=== PATIENT | male | born 1935 | race African-American/Black ===

== ENCOUNTER 2022-10-21 17:39 | Emergency (ER) | payer OTHER ==
[~2022-10-21] VITALS: Ht 182.9 cm; Wt 105.0 kg
[2022-10-21] MEDS ORDERED: FUROSEMIDE 40 MG/4 ML VIAL IV ONE (18:30)
[2022-10-21 18:41] LABS: Basophils # (auto) 0.1 10 ^3/uL (0-0.2); Basophils % (auto) 1.2 % (0.0-2.0); Eosinophils # (auto) 0.2 10 ^3/uL (0-0.8); Eosinophils % (auto) 2.7 % (0.0-7.0); Hematocrit 39.3 % (41.0-53.0); Hemoglobin 12.6 g/dL (13.5-17.5); Lymphocytes # (auto) 1.5 10 ^3/uL (0.4-5.4); Lymphocytes % (auto) 24.8 % (10.0-50.0); Mean Corpuscular Hemoglobin 28.4 pg (28.0-32.0); Mean Corpuscular Volume 88.8 fL (80.0-100.0); Monocytes % (auto) 16.2 % (0.0-12.0); Neutrophils # (auto) 3.3 10 ^3/uL (1.6-8.6); Neutrophils % (auto) 55.1 % (37.0-80.0); Nucleated Red Blood Cells % 0.1 %; Red Blood Cells 4.42 10^6/uL (4.5-5.90); Red Cell Distribution Width 14.4 % (11.8-14.3); White Blood Cell 5.9 10^3/uL (4.4-10.8)
[2022-10-21 19:02] LABS: Albumin 2.4 g/dL (3.4-5.0); BUN/Creatinine Ratio 25.8; Potassium 5.4 mmol/L (3.5-5.1)
[2022-10-21 19:10] LABS: Bilirubin, Total 0.4 mg/dL (0.2-1.0); Total Protein 7.3 g/dL (6.4-8.2)
[2022-10-21] MEDS ORDERED: NITROGLYCERIN 0.4 MG SL TAB SL ONE (19:30)
[2022-10-21] MEDS ORDERED: hydrALAZINE HCL 25 MG TAB PO ONE (22:45)
[2022-10-21 23:29] VITALS: BP 182/69
== END 2022-10-21 23:45 | disposition short-term general hospital (02) ==
LOC: ER 17:39 → EDUNIT# 17:39 → EDBD 17:39 → ER 23:45
DX: I16.9 Hypertensive crisis, unspecified (principal); I13.0 Hypertensive heart and chronic kidney disease with heart failure and stage 1 through stage 4 chronic kidney disease, or unspecified chronic kidney disease; E11.22 Type 2 diabetes mellitus with diabetic chronic kidney disease; N18.9 Chronic kidney disease, unspecified; I50.9 Heart failure, unspecified; E78.5 Hyperlipidemia, unspecified
CPT/HCPCS: 36415; 71045; 80053; 82962; 83735; 83880; 84484; 85025; 93005; 96374; 99285; J1940

== ENCOUNTER 2022-11-03 11:55 | Inpatient (IN) | payer OTHER ==
[~2022-11-03] VITALS: Ht 175.3 cm; Wt 98.2 kg
[2022-11-03] MEDS ORDERED: GLUCAGON EMERG KIT 1mg/1ml IV ONE ×2 (12:00→13:45)
[2022-11-03] MEDS ORDERED: ONDANSETRON HCL 4 MG/2 ML VIAL IV ONE (12:15)
[2022-11-03 12:56] LABS: Basophils # (auto) 0 10 ^3/uL (0-0.2); Basophils % (auto) 0.8 % (0.0-2.0); Eosinophils # (auto) 0.2 10 ^3/uL (0-0.8); Eosinophils % (auto) 3.8 % (0.0-7.0); Hematocrit 31.3 % (41.0-53.0); Hemoglobin 10.1 g/dL (13.5-17.5); Lymphocytes # (auto) 1.1 10 ^3/uL (0.4-5.4); Lymphocytes % (auto) 20.2 % (10.0-50.0); Mean Corpuscular Hemoglobin 28.5 pg (28.0-32.0); Mean Corpuscular Hgb Conc. 32.2 g/dL (32.0-36.0); Mean Corpuscular Volume 88.2 fL (80.0-100.0); Monocytes # (auto) 0.9 10 ^3/uL (0-1.3); Monocytes % (auto) 16.8 % (0.0-12.0); Neutrophils # (auto) 3.2 10 ^3/uL (1.6-8.6); Neutrophils % (auto) 58.4 % (37.0-80.0); Nucleated Red Blood Cells % 0.1 %; Red Blood Cells 3.55 10^6/uL (4.5-5.90); Red Cell Distribution Width 14.7 % (11.8-14.3); White Blood Cell 5.5 10^3/uL (4.4-10.8)
[2022-11-03 13:38] LABS: Albumin 2.2 g/dL (3.4-5.0); Calcium 7.5 mg/dL (8.5-10.1); Magnesium 2.6 mg/dL (1.6-2.6)
[2022-11-03 13:43] LABS: BUN/Creatinine Ratio 31.7; Bilirubin, Total 0.4 mg/dL (0.2-1.0)
[2022-11-03] MEDS ORDERED: cefTRIAXone 1GM/50ML D5W 50 ML IV ONE (13:45)
[2022-11-03 13:54] LABS: Potassium 6.2 mmol/L (3.5-5.1)
[2022-11-03] MEDS ORDERED: ALBUTEROL SULF 2.5 MG/0.5ML(0.5%) NEB SOLN NEB ONE ×2 (14:00→21:45)
[2022-11-03] MEDS ORDERED: InsuLIN REG 1unit/0.01ml Soln (100units/ml) IV ONE ×2 (14:00→21:45)
[2022-11-03] MEDS ORDERED: FUROSEMIDE 40 MG/4 ML VIAL IV ONE (14:00)
[2022-11-03] MEDS ORDERED: CALCIUM GLUC 1,000mg/50ml-NS 50 ML IV ONE (14:00)
[2022-11-03] MEDS ORDERED: SODIUM ZIRCONIUM CYCL 10 GM PAK PO ONE (14:00)
[2022-11-03] MEDS ORDERED: DEXTROSE 10% 250 ML Bag IV ONE (14:15)
[2022-11-03] MEDS ORDERED: HYDR50TA15 PO (15:15)
[2022-11-03] MEDS ORDERED: PRE5T PO (15:15)
[2022-11-03] MEDS ORDERED: GAB100C PO (15:15)
[2022-11-03] MEDS ORDERED: PANTOPRAZOLE 40 MG/10 ML VIAL INJ IV ONE (15:15)
[2022-11-03] MEDS ORDERED: DOXY-111 PO (15:15)
[2022-11-03] MEDS ORDERED: methylPREDNISolone SOD SUCC 125 MG/2 ML VL IV ONE (15:15)
[2022-11-03] MEDS ORDERED: ATEN50TA PO (15:15)
[2022-11-03] MEDS ORDERED: DEXTROSE (50%) 50ML SYRG IV PRN (15:15)
[2022-11-03] MEDS ORDERED: AZITHROMYCIN 500MG/ 250ML 250 ML IV ONE (15:15)
[2022-11-03] MEDS ORDERED: NITROGLYCERIN 0.4 MG SL TAB SL PRN (15:15)
[2022-11-03] MEDS ORDERED: ALBUTEROL SULF 2.5 MG/0.5ML(0.5%) NEB SOLN NEB PRN (15:15)
[2022-11-03] MEDS ORDERED: FURO40TA4 PO (15:15)
[2022-11-03] MEDS ORDERED: LISI20TA28 PO (15:15)
[2022-11-03] MEDS ORDERED: AMLO-489 PO (15:15)
[2022-11-03] MEDS ORDERED: MORPHINE SULFATE INJ 2 MG/ml SYRG IV PRN (15:15)
[2022-11-03] MEDS ORDERED: BENZ100C97 PO (15:15)
[2022-11-03 15:42] LABS: Cholesterol 118 mg/dL (< 200)
[2022-11-03 15:45] LABS: HDL Cholesterol 45 mg/dL (40-59); LDL Cholesterol 74 mg/dL (< 100); Triglycerides 88 mg/dL (< 150)
[2022-11-03 16:02] VITALS: BP 151/56
[2022-11-03 16:36] LABS: INR 1.11 (0.9-1.15)
[2022-11-03] MEDS: InsuLIN REG 1unit/0.01ml Soln (100units/ml) SC SCH ×2 (17:00→22:59)
[2022-11-03] MEDS: ACCU-CHEK COMFORT CURVE STRIP VI SCH ×2 (17:07→22:49)
[2022-11-03] MEDS ORDERED: IPRATROPIUM BROM 0.5 MG/2.5ML INH SOL NEB SCH (18:00)
[2022-11-03 18:26] LABS: Albumin 2.3 g/dL (3.4-5.0); BUN/Creatinine Ratio 32.1; Calcium 8.2 mg/dL (8.5-10.1)
[2022-11-03 18:28] LABS: Bilirubin, Total 0.3 mg/dL (0.2-1.0); Total Protein 6.9 g/dL (6.4-8.2)
[2022-11-03] MEDS ORDERED: ALBUTEROL SULF 2.5 MG/0.5ML(0.5%) NEB SOLN ONE (18:28)
[2022-11-03] MEDS: IPRATROPIUM BROM 0.5 MG/2.5ML INH SOL NEB SCH ×2 (18:31→22:03)
[2022-11-03 18:39] LABS: Potassium 6.3 mmol/L (3.5-5.1)
[2022-11-03] MEDS ORDERED: SODIUM BICARBONATE 8.4% INJ 50ML SYRINGE IV ONE (21:45)
[2022-11-03] MEDS ORDERED: HEPARIN DRIP/D5W 100UNITS/ML 250 ML IV SCH (21:45)
[2022-11-03] MEDS ORDERED: HEPARIN SODIUM (PORCINE) 5000 UNITS/ML 1ML VIAL IV ONE (21:45)
[2022-11-03] MEDS ORDERED: DEXTROSE (50%) 50ML SYRG IV ONE (21:45)
[2022-11-03] MEDS ORDERED: HEPARIN SODIUM (PORCINE) 5000 UNITS/ML 1ML VIAL SC SCH (22:00)
[2022-11-03] MEDS: ALBUTEROL SULF 2.5 MG/0.5ML(0.5%) NEB SOLN NEB SCH (22:03)
[2022-11-03] MEDS: methylPREDNISolone SOD SUCC 125 MG/2 ML VL IV SCH (22:49)
[2022-11-03 22:57] LABS: Basophils # (auto) 0 10 ^3/uL (0-0.2); Basophils % (auto) 0.2 % (0.0-2.0); Eosinophils # (auto) 0 10 ^3/uL (0-0.8); Eosinophils % (auto) 0.1 % (0.0-7.0); Hematocrit 31.3 % (41.0-53.0); Hemoglobin 10.2 g/dL (13.5-17.5); Lymphocytes # (auto) 0.6 10 ^3/uL (0.4-5.4); Lymphocytes % (auto) 10.3 % (10.0-50.0); Mean Corpuscular Hemoglobin 28.6 pg (28.0-32.0); Mean Corpuscular Hgb Conc. 32.6 g/dL (32.0-36.0); Mean Corpuscular Volume 87.8 fL (80.0-100.0); Monocytes # (auto) 0.1 10 ^3/uL (0-1.3); Monocytes % (auto) 2.2 % (0.0-12.0); Neutrophils # (auto) 5.2 10 ^3/uL (1.6-8.6); Neutrophils % (auto) 87.2 % (37.0-80.0); Nucleated Red Blood Cells % 0.1 %; Red Blood Cells 3.57 10^6/uL (4.5-5.90); Red Cell Distribution Width 14.3 % (11.8-14.3)
[2022-11-03 23:12] LABS: INR 1.15 (0.9-1.15)
[2022-11-03] MEDS ORDERED: FUROSEMIDE 20 MG/2 ML VIAL IV ONE (23:45)
[2022-11-04] MEDS: ACETAMINOPHEN 325 MG TAB PO PRN (00:30)
[2022-11-04 01:04] LABS: BUN/Creatinine Ratio 29.5; Calcium 7.7 mg/dL (8.5-10.1)
[2022-11-04 01:24] LABS: Potassium 6.6 mmol/L (3.5-5.1)
[2022-11-04] MEDS: IPRATROPIUM BROM 0.5 MG/2.5ML INH SOL NEB SCH ×6 (02:00→21:58)
[2022-11-04] MEDS: ALBUTEROL SULF 2.5 MG/0.5ML(0.5%) NEB SOLN NEB SCH ×6 (02:00→21:58)
[2022-11-04] MEDS ORDERED: ALBUTEROL SULF 2.5 MG/0.5ML(0.5%) NEB SOLN NEB ONE ×2 (02:15→14:30)
[2022-11-04] MEDS ORDERED: DEXTROSE (50%) 50ML SYRG IV ONE ×2 (02:15→13:15)
[2022-11-04] MEDS ORDERED: InsuLIN REG 1unit/0.01ml Soln (100units/ml) IV ONE ×2 (02:15→13:15)
[2022-11-04] MEDS ORDERED: CALCIUM GLUC 1,000mg/50ml-NS 50 ML IV ONE ×2 (02:15→13:15)
[2022-11-04] MEDS ORDERED: SODIUM ZIRCONIUM CYCL 10 GM PAK PO ONE (02:15)
[2022-11-04] MEDS ORDERED: SODIUM BICARBONATE 8.4 % INJ 50ML VIAL IV ONE (02:15)
[2022-11-04] MEDS ORDERED: FUROSEMIDE 40 MG/4 ML VIAL IV ONE (02:30)
[2022-11-04] MEDS ORDERED: DEXTROSE 10% 250 ML IV ONE ×4 (02:45→14:45)
[2022-11-04 05:05] LABS: Basophils # (auto) 0 10 ^3/uL (0-0.2); Basophils % (auto) 0.1 % (0.0-2.0); Eosinophils # (auto) 0 10 ^3/uL (0-0.8); Eosinophils % (auto) 0.1 % (0.0-7.0); Hematocrit 30.2 % (41.0-53.0); Hemoglobin 9.7 g/dL (13.5-17.5); Lymphocytes # (auto) 0.6 10 ^3/uL (0.4-5.4); Lymphocytes % (auto) 9.4 % (10.0-50.0); Mean Corpuscular Hemoglobin 28.4 pg (28.0-32.0); Mean Corpuscular Hgb Conc. 32.1 g/dL (32.0-36.0); Mean Corpuscular Volume 88.3 fL (80.0-100.0); Monocytes # (auto) 0.1 10 ^3/uL (0-1.3); Monocytes % (auto) 1.9 % (0.0-12.0); Neutrophils # (auto) 5.5 10 ^3/uL (1.6-8.6); Neutrophils % (auto) 88.5 % (37.0-80.0); Nucleated Red Blood Cells % 0.1 %; Red Blood Cells 3.42 10^6/uL (4.5-5.90); Red Cell Distribution Width 14.7 % (11.8-14.3); White Blood Cell 6.2 10^3/uL (4.4-10.8)
[2022-11-04 05:13] LABS: Albumin 2.2 g/dL (3.4-5.0); Calcium 7.9 mg/dL (8.5-10.1)
[2022-11-04 05:17] LABS: BUN/Creatinine Ratio 24.8; Bilirubin, Total 0.4 mg/dL (0.2-1.0); Total Protein 6.8 g/dL (6.4-8.2)
[2022-11-04 05:22] LABS: Potassium 6.2 mmol/L (3.5-5.1)
[2022-11-04 05:35] LABS: INR 1.25 (0.9-1.15)
[2022-11-04 05:40] LABS: Partial Thromboplastin Time > 139.0 sec (24.6-33.4)
[2022-11-04] MEDS: InsuLIN REG 1unit/0.01ml Soln (100units/ml) SC SCH ×4 (07:04→22:18)
[2022-11-04] MEDS: ACCU-CHEK COMFORT CURVE STRIP VI SCH ×4 (07:04→22:11)
[2022-11-04] MEDS ORDERED: cefTRIAXone 1GM/50ML D5W 50 ML IV SCH (09:00)
[2022-11-04] MEDS ORDERED: HEPARIN DRIP/D5W 100UNITS/ML 250 ML IV SCH (09:00)
[2022-11-04] MEDS ORDERED: FUROSEMIDE 20 MG/2 ML VIAL IV SCH (10:00)
[2022-11-04] MEDS ORDERED: amLODIPine BESYLATE 5 MG TAB PO SCH (10:00)
[2022-11-04] MEDS ORDERED: AZITHROMYCIN 500MG/ 250ML 250 ML IV SCH (10:00)
[2022-11-04] MEDS: methylPREDNISolone SOD SUCC 125 MG/2 ML VL IV SCH (10:32)
[2022-11-04] MEDS: PANTOPRAZOLE 40 MG/10 ML VIAL INJ IV SCH (10:32)
[2022-11-04 12:45] LABS: BUN/Creatinine Ratio 22.4; Calcium 7.9 mg/dL (8.5-10.1)
[2022-11-04] MEDS ORDERED: FUROSEMIDE INJECTION 100 MG in SODIUM CHL 0.9% 100 ML IV SCH (12:45)
[2022-11-04] MEDS: SODIUM ZIRCONIUM CYCL 10 GM PAK PO SCH ×2 (12:45→20:44)
[2022-11-04 12:55] LABS: Potassium 7.2 mmol/L (3.5-5.1)
[2022-11-04] MEDS ORDERED: SODIUM BICARBONATE 8.4% INJ 50ML SYRINGE IV ONE (13:15)
[2022-11-04] MEDS ORDERED: ISOPROTERENOL HCL INJECTION 1 MG in D5W 5% 250 ML IV SCH (13:30)
[2022-11-04] MEDS ORDERED: SODIUM ZIRCONIUM CYCL 10 GM PAK PO SCH (14:00)
[2022-11-04] MEDS ORDERED: LORazepam 2MG/ML-1ML VIAL ONE (16:12)
[2022-11-04] MEDS ORDERED: LORazepam 2MG/ML-1ML VIAL IV ONE (16:30)
[2022-11-04 16:38] LABS: INR 1.29 (0.9-1.15); Partial Thromboplastin Time 35.2 sec (24.6-33.4)
[2022-11-04] MEDS ORDERED: LORazepam 2MG/ML-1ML VIAL IV PRN (16:45)
[2022-11-04] MEDS ORDERED: SODIUM CHL 0.9% 1000 ML BAG XX ONE (17:30)
[2022-11-04 18:40] LABS: Calcium 8.1 mg/dL (8.5-10.1); Potassium 5.5 mmol/L (3.5-5.1)
[2022-11-04 18:42] LABS: BUN/Creatinine Ratio 22.6
[2022-11-04] MEDS ORDERED: EPOETIN ALFA-EPBX 10,000 UNIT/1ML VIAL SC ONE (21:00)
[2022-11-04] MEDS ORDERED: MELATONIN 5 MG TAB ONE (22:58)
[2022-11-04 23:46] LABS: Folate (Folic Acid) 15.12 ng/mL (5.38-24)
[2022-11-05] VITALS (66 sets, daily range): BP systolic 97–157; BP diastolic 33–54
[2022-11-05 00:49] LABS: Albumin 2.5 g/dL (3.4-5.0); BUN/Creatinine Ratio 21.9; Calcium 8.2 mg/dL (8.5-10.1)
[2022-11-05 00:54] LABS: Urine Bacteria FEW /hpf (None Seen); Urine Blood 3+ /uL (Negative); Urine Hyaline Cast MANY /lpf (0 - 2); Urine Mucus FEW (None Seen); Urine Specific Gravity 1.012 (1.001-1.035); Urine WBC 82 /hpf (0 - 3); Urine WBC Clumps PRESENT /hpf (None Seen)
[2022-11-05 00:56] LABS: Bilirubin, Total 0.4 mg/dL (0.2-1.0); Total Protein 6.6 g/dL (6.4-8.2)
[2022-11-05 00:59] LABS: Potassium 5.8 mmol/L (3.5-5.1)
[2022-11-05] MEDS ORDERED: SODIUM ZIRCONIUM CYCL 10 GM PAK PO ONE (01:15)
[2022-11-05 01:19] LABS: Alcohol, Urine < 3.0 mg/dL (0-10); Amphetamine Screen, Urine NEGATIVE (NEGATIVE); Barbiturate Scree,Urine NEGATIVE (NEGATIVE); Benzodiazephine Screen, Urine NEGATIVE (NEGATIVE); Cannabinoid Screen, Urine NEGATIVE (NEGATIVE); Cocaine Screen, Urine NEGATIVE (NEGATIVE); Opiate Scree,Urine NEGATIVE (NEGATIVE); Phencyclidine Screen, Urine NEGATIVE (NEGATIVE); Protein, Urine 142.3 mg/dL (0.0-11.9)
[2022-11-05] MEDS: ALBUTEROL SULF 2.5 MG/0.5ML(0.5%) NEB SOLN NEB SCH ×6 (01:41→22:20)
[2022-11-05] MEDS: IPRATROPIUM BROM 0.5 MG/2.5ML INH SOL NEB SCH ×6 (01:41→22:20)
[2022-11-05] MEDS ORDERED: HALOPERIDOL LACTATE 5 MG/ML INJ VIAL IM ONE (01:45)
[2022-11-05] MEDS ORDERED: ETOMIDATE (2MG/ML) 20ML VIAL IV ONE ×2 (03:59→04:15)
[2022-11-05] MEDS ORDERED: ROCURONIUM 10MG/ML 10ML VIAL IV ONE ×2 (03:59→04:15)
[2022-11-05] MEDS ORDERED: MIDAZOLAM HCL 5 MG/ML-1ML VIAL ONE (04:01)
[2022-11-05] MEDS ORDERED: MIDAZOLAM DRIP 50 mg/50mL 50 ML IV ONE (04:01)
[2022-11-05] MEDS ORDERED: MAGNESIUM SULFATE 1GM/100ML 200 ML IV ONE (04:07)
[2022-11-05] MEDS ORDERED: SODIUM BICARBONATE 8.4 % INJ 50ML VIAL IV ONE ×2 (04:15→06:30)
[2022-11-05] MEDS ORDERED: ATROPINE SULF 1 MG/10ml SYR IV ONE (04:15)
[2022-11-05] MEDS ORDERED: SODIUM CHLORIDE 0.9% 1,000 ML IV ONE (04:15)
[2022-11-05] MEDS: MIDAZOLAM DRIP 50 mg/50mL 50 ML IV SCH ×3 (04:15→20:36)
[2022-11-05] MEDS ORDERED: MIDAZOLAM HCL 5 MG/ML-1ML VIAL IV ONE (04:15)
[2022-11-05] MEDS: SODIUM ZIRCONIUM CYCL 10 GM PAK PO SCH ×4 (04:45→22:37)
[2022-11-05] MEDS: MAGNESIUM SULFATE 1GM/100ML 100 ML IV SCH ×2 (05:10→05:20)
[2022-11-05 05:20] LABS: BUN/Creatinine Ratio 23.8; Calcium 8.8 mg/dL (8.5-10.1); Phosphorus 5.9 mg/dL (2.5-4.90)
[2022-11-05 05:52] LABS: Calcium 8.9 mg/dL (8.5-10.1)
[2022-11-05 05:56] LABS: Albumin 2.2 g/dL (3.4-5.0)
[2022-11-05 05:59] LABS: Bilirubin, Total 0.3 mg/dL (0.2-1.0)
[2022-11-05 06:03] LABS: Potassium 5.6 mmol/L (3.5-5.1)
[2022-11-05] MEDS: PROPOFOL 100 ML IV SCH ×2 (06:10→20:39)
[2022-11-05 06:19] LABS: Uric Acid 8.8 mg/dL (3.5-7.2)
[2022-11-05 06:27] LABS: Potassium 5.5 mmol/L (3.5-5.1)
[2022-11-05] MEDS: ACCU-CHEK COMFORT CURVE STRIP VI SCH ×4 (07:09→22:00)
[2022-11-05] MEDS: InsuLIN REG 1unit/0.01ml Soln (100units/ml) SC SCH ×4 (07:13→22:29)
[2022-11-05 07:18] LABS: Basophils # (auto) 0 10 ^3/uL (0-0.2); Eosinophils # (auto) 0 10 ^3/uL (0-0.8); Hematocrit 28.3 % (41.0-53.0); Hemoglobin 9.5 g/dL (13.5-17.5); Lymphocytes # (auto) 0.5 10 ^3/uL (0.4-5.4); Lymphocytes % (auto) 5.7 % (10.0-50.0); Mean Corpuscular Hgb Conc. 33.5 g/dL (32.0-36.0); Mean Corpuscular Volume 86.4 fL (80.0-100.0); Monocytes # (auto) 1.1 10 ^3/uL (0-1.3); Monocytes % (auto) 12.1 % (0.0-12.0); Neutrophils # (auto) 7.4 10 ^3/uL (1.6-8.6); Neutrophils % (auto) 82.2 % (37.0-80.0); Nucleated Red Blood Cells % 0.1 %; Red Blood Cells 3.27 10^6/uL (4.5-5.90); Red Cell Distribution Width 14.8 % (11.8-14.3)
[2022-11-05] MEDS ORDERED: NOREPINEPHRINE 8 MG/250ML KIT 250 ML IV ONE (09:57)
[2022-11-05] MEDS ORDERED: FUROSEMIDE 100 MG/10ML VIAL IV SCH (10:00)
[2022-11-05] MEDS ORDERED: DOPamine 1600MCG/ML D5W 250 ML IV ONE (10:05)
[2022-11-05] MEDS: PANTOPRAZOLE 40 MG/10 ML VIAL INJ IV SCH (12:08)
[2022-11-05] MEDS: FUROSEMIDE 100 MG/10ML VIAL IV SCH ×2 (12:09→22:37)
[2022-11-05] MEDS: ENOXAPARIN SOD 120 MG/0.8 ML SYRINGE SC SCH (14:24)
[2022-11-05] MEDS ORDERED: MELATONIN 5 MG TAB PO ONE (22:00)
[2022-11-06] VITALS (76 sets, daily range): BP systolic 96–148; BP diastolic 34–59
[2022-11-06] MEDS: ALBUTEROL SULF 2.5 MG/0.5ML(0.5%) NEB SOLN NEB SCH ×6 (02:13→22:18)
[2022-11-06] MEDS: IPRATROPIUM BROM 0.5 MG/2.5ML INH SOL NEB SCH ×6 (02:13→22:18)
[2022-11-06 05:52] LABS: Basophils # (auto) 0 10 ^3/uL (0-0.2); Eosinophils # (auto) 0 10 ^3/uL (0-0.8); Hematocrit 28.6 % (41.0-53.0); Hemoglobin 9.6 g/dL (13.5-17.5); Lymphocytes # (auto) 0.6 10 ^3/uL (0.4-5.4); Lymphocytes % (auto) 6.6 % (10.0-50.0); Mean Corpuscular Hemoglobin 29.1 pg (28.0-32.0); Mean Corpuscular Hgb Conc. 33.4 g/dL (32.0-36.0); Mean Corpuscular Volume 86.9 fL (80.0-100.0); Monocytes % (auto) 11.6 % (0.0-12.0); Neutrophils # (auto) 7.3 10 ^3/uL (1.6-8.6); Neutrophils % (auto) 81.8 % (37.0-80.0); Nucleated Red Blood Cells % 0.1 %; Red Blood Cells 3.29 10^6/uL (4.5-5.90); Red Cell Distribution Width 14.3 % (11.8-14.3); White Blood Cell 8.9 10^3/uL (4.4-10.8)
[2022-11-06 06:12] LABS: BUN/Creatinine Ratio 24.5; Calcium 8.2 mg/dL (8.5-10.1); Potassium 5.5 mmol/L (3.5-5.1)
[2022-11-06] MEDS: InsuLIN REG 1unit/0.01ml Soln (100units/ml) SC SCH ×4 (06:24→22:14)
[2022-11-06] MEDS: ACCU-CHEK COMFORT CURVE STRIP VI SCH ×4 (06:24→22:28)
[2022-11-06] MEDS ORDERED: SODIUM CHL 0.9% 1000 ML BAG XX ONE (07:00)
[2022-11-06] MEDS: ENOXAPARIN SOD 120 MG/0.8 ML SYRINGE SC SCH (09:55)
[2022-11-06] MEDS: FUROSEMIDE 100 MG/10ML VIAL IV SCH ×2 (09:56→21:26)
[2022-11-06] MEDS: PANTOPRAZOLE 40 MG/10 ML VIAL INJ IV SCH (09:56)
[2022-11-06] MEDS: cefTRIAXone 1GM/50ML D5W 50 ML IV SCH (10:00)
[2022-11-06] MEDS ORDERED: Nepro With Carb Steady 1 Liter Bottle GT SCH (10:00)
[2022-11-06] MEDS: MIDAZOLAM DRIP 50 mg/50mL 50 ML IV SCH ×2 (10:15→19:42)
[2022-11-06] MEDS ORDERED: cefTRIAXone 1GM/50ML D5W 50 ML IV ONE (12:00)
[2022-11-06 13:41] LABS: Urine Bacteria NONE SEEN /hpf (None Seen); Urine Blood 2+ /uL (Negative); Urine Hyaline Cast FEW /lpf (0 - 2); Urine Specific Gravity 1.006 (1.001-1.035); Urine WBC 2 /hpf (0 - 3)
[2022-11-06] MEDS: PROPOFOL 100 ML IV SCH (19:43)
[2022-11-06] MEDS ORDERED: EPOETIN ALFA-EPBX 10,000 UNIT/1ML VIAL SC ONE (21:00)
[2022-11-07] VITALS (93 sets, daily range): BP systolic 98–156; BP diastolic 32–62
[2022-11-07] MEDS: PROPOFOL 100 ML IV SCH ×2 (01:03→15:16)
[2022-11-07] MEDS: IPRATROPIUM BROM 0.5 MG/2.5ML INH SOL NEB SCH ×5 (02:17→19:00)
[2022-11-07] MEDS: ALBUTEROL SULF 2.5 MG/0.5ML(0.5%) NEB SOLN NEB SCH ×5 (02:17→19:00)
[2022-11-07 05:46] LABS: Basophils # (auto) 0 10 ^3/uL (0-0.2); Basophils % (auto) 0.3 % (0.0-2.0); Eosinophils # (auto) 0 10 ^3/uL (0-0.8); Eosinophils % (auto) 0.1 % (0.0-7.0); Hematocrit 35.1 % (41.0-53.0); Hemoglobin 11.4 g/dL (13.5-17.5); Lymphocytes # (auto) 0.9 10 ^3/uL (0.4-5.4); Lymphocytes % (auto) 11.3 % (10.0-50.0); Mean Corpuscular Hemoglobin 28.2 pg (28.0-32.0); Mean Corpuscular Hgb Conc. 32.6 g/dL (32.0-36.0); Mean Corpuscular Volume 86.6 fL (80.0-100.0); Monocytes # (auto) 1.4 10 ^3/uL (0-1.3); Monocytes % (auto) 16.6 % (0.0-12.0); Neutrophils # (auto) 5.9 10 ^3/uL (1.6-8.6); Neutrophils % (auto) 71.7 % (37.0-80.0); Nucleated Red Blood Cells % 0.4 %; Red Blood Cells 4.06 10^6/uL (4.5-5.90); Red Cell Distribution Width 14.9 % (11.8-14.3); White Blood Cell 8.3 10^3/uL (4.4-10.8)
[2022-11-07 05:55] LABS: Potassium 4.8 mmol/L (3.5-5.1)
[2022-11-07 05:59] LABS: BUN/Creatinine Ratio 20.9; Calcium 8.5 mg/dL (8.5-10.1)
[2022-11-07] MEDS: MIDAZOLAM DRIP 50 mg/50mL 50 ML IV SCH (06:02)
[2022-11-07] MEDS: ACCU-CHEK COMFORT CURVE STRIP VI SCH ×4 (06:03→21:10)
[2022-11-07] MEDS: InsuLIN REG 1unit/0.01ml Soln (100units/ml) SC SCH ×4 (06:03→21:07)
[2022-11-07] MEDS: cefTRIAXone 1GM/50ML D5W 50 ML IV SCH (08:33)
[2022-11-07] MEDS: FUROSEMIDE 100 MG/10ML VIAL IV SCH ×2 (08:33→21:44)
[2022-11-07] MEDS: ENOXAPARIN SOD 120 MG/0.8 ML SYRINGE SC SCH (08:34)
[2022-11-07] MEDS: PANTOPRAZOLE 40 MG/10 ML VIAL INJ IV SCH (08:34)
[2022-11-07] MEDS ORDERED: Nepro With Carb Steady 1 Liter Bottle GT SCH (11:00)
[2022-11-08] VITALS (85 sets, daily range): BP systolic 73–208; BP diastolic 29–96
[2022-11-08] MEDS: IPRATROPIUM BROM 0.5 MG/2.5ML INH SOL NEB SCH ×6 (02:07→23:47)
[2022-11-08] MEDS: ALBUTEROL SULF 2.5 MG/0.5ML(0.5%) NEB SOLN NEB SCH ×6 (02:07→23:47)
[2022-11-08] MEDS: MIDAZOLAM DRIP 50 mg/50mL 50 ML IV SCH ×4 (02:15→22:15)
[2022-11-08] MEDS: ACCU-CHEK COMFORT CURVE STRIP VI SCH ×4 (04:29→21:45)
[2022-11-08] MEDS: PROPOFOL 100 ML IV SCH (04:34)
[2022-11-08] MEDS: InsuLIN REG 1unit/0.01ml Soln (100units/ml) SC SCH ×4 (05:07→21:59)
[2022-11-08 05:21] LABS: Basophils # (auto) 0 10 ^3/uL (0-0.2); Basophils % (auto) 0.1 % (0.0-2.0); Eosinophils # (auto) 0 10 ^3/uL (0-0.8); Eosinophils % (auto) 0.2 % (0.0-7.0); Hematocrit 36.1 % (41.0-53.0); Hemoglobin 11.9 g/dL (13.5-17.5); Lymphocytes # (auto) 0.6 10 ^3/uL (0.4-5.4); Lymphocytes % (auto) 7.2 % (10.0-50.0); Mean Corpuscular Volume 87.8 fL (80.0-100.0); Monocytes # (auto) 1.3 10 ^3/uL (0-1.3); Neutrophils # (auto) 6.5 10 ^3/uL (1.6-8.6); Neutrophils % (auto) 77.5 % (37.0-80.0); Nucleated Red Blood Cells % 0.3 %; Red Blood Cells 4.11 10^6/uL (4.5-5.90); Red Cell Distribution Width 14.9 % (11.8-14.3); White Blood Cell 8.4 10^3/uL (4.4-10.8)
[2022-11-08] MEDS: PANTOPRAZOLE 40 MG/10 ML VIAL INJ IV SCH (09:13)
[2022-11-08] MEDS: cefTRIAXone 1GM/50ML D5W 50 ML IV SCH (09:13)
[2022-11-08] MEDS ORDERED: NOREPINEPHRINE 8 MG/250ML KIT 250 ML IV ONE (09:23)
[2022-11-08 09:35] LABS: Albumin 2.2 g/dL (3.4-5.0); BUN/Creatinine Ratio 27.6; Bilirubin, Total 0.4 mg/dL (0.2-1.0); Calcium 8.8 mg/dL (8.5-10.1); Potassium 3.9 mmol/L (3.5-5.1); Total Protein 6.6 g/dL (6.4-8.2)
[2022-11-08] MEDS: NOREPINEPHRINE 8 MG/250ML KIT 250 ML IV SCH (09:49)
[2022-11-08] MEDS: FUROSEMIDE 100 MG/10ML VIAL IV SCH ×2 (10:00→21:57)
[2022-11-08] MEDS: ENOXAPARIN SOD 120 MG/0.8 ML SYRINGE SC SCH (10:00)
[2022-11-09] VITALS (97 sets, daily range): BP systolic 77–174; BP diastolic 34–68
[2022-11-09] MEDS: PROPOFOL 100 ML IV SCH ×2 (00:04→04:45)
[2022-11-09] MEDS: IPRATROPIUM BROM 0.5 MG/2.5ML INH SOL NEB SCH ×6 (02:13→21:36)
[2022-11-09] MEDS: ALBUTEROL SULF 2.5 MG/0.5ML(0.5%) NEB SOLN NEB SCH ×6 (02:13→21:36)
[2022-11-09 05:35] LABS: Basophils # (auto) 0 10 ^3/uL (0-0.2); Basophils % (auto) 0.2 % (0.0-2.0); Eosinophils # (auto) 0.1 10 ^3/uL (0-0.8); Eosinophils % (auto) 0.6 % (0.0-7.0); Hematocrit 35.9 % (41.0-53.0); Hemoglobin 11.4 g/dL (13.5-17.5); Lymphocytes # (auto) 0.9 10 ^3/uL (0.4-5.4); Lymphocytes % (auto) 7.4 % (10.0-50.0); Mean Corpuscular Hemoglobin 28.1 pg (28.0-32.0); Mean Corpuscular Hgb Conc. 31.9 g/dL (32.0-36.0); Mean Corpuscular Volume 88.3 fL (80.0-100.0); Monocytes # (auto) 1.7 10 ^3/uL (0-1.3); Neutrophils # (auto) 9.7 10 ^3/uL (1.6-8.6); Neutrophils % (auto) 77.8 % (37.0-80.0); Nucleated Red Blood Cells % 0.1 %; Red Blood Cells 4.07 10^6/uL (4.5-5.90); Red Cell Distribution Width 15.5 % (11.8-14.3); White Blood Cell 12.4 10^3/uL (4.4-10.8)
[2022-11-09 05:52] LABS: BUN/Creatinine Ratio 23.8 (10.0-20.0); Calcium 8.5 mg/dL (8.5-10.1)
[2022-11-09] MEDS: ACCU-CHEK COMFORT CURVE STRIP VI SCH ×4 (06:17→21:49)
[2022-11-09] MEDS: InsuLIN REG 1unit/0.01ml Soln (100units/ml) SC SCH ×4 (06:29→21:50)
[2022-11-09] MEDS: MIDAZOLAM DRIP 50 mg/50mL 50 ML IV SCH ×2 (08:15→18:15)
[2022-11-09] MEDS: NOREPINEPHRINE 8 MG/250ML KIT 250 ML IV SCH (09:30)
[2022-11-09] MEDS: FUROSEMIDE 100 MG/10ML VIAL IV SCH ×2 (11:25→21:49)
[2022-11-09] MEDS: PANTOPRAZOLE 40 MG/10 ML VIAL INJ IV SCH (11:25)
[2022-11-09] MEDS: INSULIN LANTUS (GLARGINE) 1 /0.01ml (100units/ml) SC SCH (11:31)
[2022-11-09] MEDS: ENOXAPARIN SOD 120 MG/0.8 ML SYRINGE SC SCH (11:32)
[2022-11-09] MEDS: cefTRIAXone 1GM/50ML D5W 50 ML IV SCH (11:34)
[2022-11-09 21:12] LABS: Magnesium 2.1 mg/dL (1.6-2.6)
[2022-11-10] VITALS (80 sets, daily range): BP systolic 113–175; BP diastolic 40–70
[2022-11-10] MEDS: IPRATROPIUM BROM 0.5 MG/2.5ML INH SOL NEB SCH ×6 (01:57→22:00)
[2022-11-10] MEDS: ALBUTEROL SULF 2.5 MG/0.5ML(0.5%) NEB SOLN NEB SCH ×6 (01:57→22:00)
[2022-11-10] MEDS: MIDAZOLAM DRIP 50 mg/50mL 50 ML IV SCH ×2 (04:15→14:15)
[2022-11-10 05:52] LABS: Basophils # (auto) 0 10 ^3/uL (0-0.2); Basophils % (auto) 0.1 % (0.0-2.0); Eosinophils # (auto) 0 10 ^3/uL (0-0.8); Eosinophils % (auto) 0.3 % (0.0-7.0); Hematocrit 34.3 % (41.0-53.0); Hemoglobin 11.3 g/dL (13.5-17.5); Lymphocytes # (auto) 0.8 10 ^3/uL (0.4-5.4); Lymphocytes % (auto) 6.5 % (10.0-50.0); Mean Corpuscular Hemoglobin 28.7 pg (28.0-32.0); Mean Corpuscular Hgb Conc. 32.8 g/dL (32.0-36.0); Mean Corpuscular Volume 87.3 fL (80.0-100.0); Monocytes # (auto) 1.8 10 ^3/uL (0-1.3); Monocytes % (auto) 14.4 % (0.0-12.0); Neutrophils # (auto) 9.6 10 ^3/uL (1.6-8.6); Neutrophils % (auto) 78.7 % (37.0-80.0); Nucleated Red Blood Cells % 0.1 %; Red Blood Cells 3.93 10^6/uL (4.5-5.90); White Blood Cell 12.2 10^3/uL (4.4-10.8)
[2022-11-10 05:58] LABS: BUN/Creatinine Ratio 29.5 (10.0-20.0); Potassium 3.9 mmol/L (3.5-5.1)
[2022-11-10] MEDS: ACCU-CHEK COMFORT CURVE STRIP VI SCH ×4 (06:33→21:59)
[2022-11-10] MEDS: InsuLIN REG 1unit/0.01ml Soln (100units/ml) SC SCH ×4 (06:54→21:59)
[2022-11-10] MEDS: NOREPINEPHRINE 8 MG/250ML KIT 250 ML IV SCH (09:30)
[2022-11-10] MEDS: cefTRIAXone 1GM/50ML D5W 50 ML IV SCH (11:10)
[2022-11-10] MEDS: ENOXAPARIN SOD 100 MG/1 ML SYRINGE SC SCH (11:13)
[2022-11-10] MEDS: FUROSEMIDE 100 MG/10ML VIAL IV SCH ×2 (11:13→21:57)
[2022-11-10] MEDS: hydrALAZINE HCL 20 MG/ML VL IV PRN ×2 (11:13→16:44)
[2022-11-10] MEDS: PANTOPRAZOLE 40 MG/10 ML VIAL INJ IV SCH (11:13)
[2022-11-10] MEDS: INSULIN LANTUS (GLARGINE) 1 /0.01ml (100units/ml) SC SCH (11:20)
[2022-11-10] MEDS ORDERED: AMIODARONE 450mg/250ml AE 250 ML IV SCH (19:00)
[2022-11-10] MEDS ORDERED: AMIODARONE HCL 150 MG in D5W 5% 100 ML IV ONE (19:00)
[2022-11-11] VITALS (72 sets, daily range): BP systolic 122–171; BP diastolic 44–82
[2022-11-11] MEDS: MIDAZOLAM DRIP 50 mg/50mL 50 ML IV SCH (00:15)
[2022-11-11] MEDS: AMIODARONE 450mg/250ml AE 250 ML IV SCH ×2 (01:08→16:00)
[2022-11-11] MEDS: IPRATROPIUM BROM 0.5 MG/2.5ML INH SOL NEB SCH ×6 (03:35→22:12)
[2022-11-11] MEDS: ALBUTEROL SULF 2.5 MG/0.5ML(0.5%) NEB SOLN NEB SCH ×6 (03:36→22:12)
[2022-11-11 05:27] LABS: Basophils # (auto) 0 10 ^3/uL (0-0.2); Basophils % (auto) 0.1 % (0.0-2.0); Eosinophils # (auto) 0.1 10 ^3/uL (0-0.8); Eosinophils % (auto) 0.5 % (0.0-7.0); Hematocrit 33.7 % (41.0-53.0); Lymphocytes # (auto) 0.8 10 ^3/uL (0.4-5.4); Lymphocytes % (auto) 6.6 % (10.0-50.0); Mean Corpuscular Hemoglobin 28.8 pg (28.0-32.0); Mean Corpuscular Hgb Conc. 32.7 g/dL (32.0-36.0); Mean Corpuscular Volume 88.1 fL (80.0-100.0); Monocytes # (auto) 1.7 10 ^3/uL (0-1.3); Monocytes % (auto) 13.5 % (0.0-12.0); Neutrophils # (auto) 10.2 10 ^3/uL (1.6-8.6); Neutrophils % (auto) 79.3 % (37.0-80.0); Nucleated Red Blood Cells % 0.1 %; Red Blood Cells 3.83 10^6/uL (4.5-5.90); Red Cell Distribution Width 14.6 % (11.8-14.3); White Blood Cell 12.8 10^3/uL (4.4-10.8)
[2022-11-11 05:46] LABS: BUN/Creatinine Ratio 38.1 (10.0-20.0); Calcium 8.3 mg/dL (8.5-10.1); Potassium 3.3 mmol/L (3.5-5.1)
[2022-11-11] MEDS: ACCU-CHEK COMFORT CURVE STRIP VI SCH ×4 (06:33→22:18)
[2022-11-11] MEDS: InsuLIN REG 1unit/0.01ml Soln (100units/ml) SC SCH ×4 (06:34→22:20)
[2022-11-11] MEDS: PROPOFOL 100 ML IV SCH (07:00)
[2022-11-11] MEDS ORDERED: POTASSIUM CHL 20MEQ/100ML 100 ML IV ONE (08:30)
[2022-11-11] MEDS ORDERED: POTASSIUM CHLORIDE 20 MEQ, LIDOCAINE 1% (LOCAL ANESTH.) 2 ML in SODIUM CHL 0.9% 100 ML IV ONE (09:45)
[2022-11-11] MEDS: FUROSEMIDE 100 MG/10ML VIAL IV SCH ×2 (11:06→22:16)
[2022-11-11] MEDS: PANTOPRAZOLE 40 MG/10 ML VIAL INJ IV SCH (11:06)
[2022-11-11] MEDS: ENOXAPARIN SOD 100 MG/1 ML SYRINGE SC SCH (11:07)
[2022-11-11] MEDS: cefTRIAXone 1GM/50ML D5W 50 ML IV SCH (11:08)
[2022-11-11] MEDS: INSULIN LANTUS (GLARGINE) 1 /0.01ml (100units/ml) SC SCH (11:16)
[2022-11-11] MEDS: LABETALOL HCL 5 MG/ML 4ML SYRINGE IV PRN ×4 (11:24→23:07)
[2022-11-12] VITALS (30 sets, daily range): BP systolic 106–186; BP diastolic 49–101
[2022-11-12] MEDS: LABETALOL HCL 5 MG/ML 4ML SYRINGE IV PRN ×4 (01:31→21:18)
[2022-11-12] MEDS: ALBUTEROL SULF 2.5 MG/0.5ML(0.5%) NEB SOLN NEB SCH ×5 (02:04→22:03)
[2022-11-12] MEDS: IPRATROPIUM BROM 0.5 MG/2.5ML INH SOL NEB SCH ×5 (02:04→22:03)
[2022-11-12 05:24] LABS: Hematocrit 40.5 % (41.0-53.0); Hemoglobin 12.6 g/dL (13.5-17.5); Mean Corpuscular Hemoglobin 28.7 pg (28.0-32.0); Mean Corpuscular Hgb Conc. 31.1 g/dL (32.0-36.0); Mean Corpuscular Volume 92.5 fL (80.0-100.0); Red Blood Cells 4.38 10^6/uL (4.5-5.90); Red Cell Distribution Width 15.5 % (11.8-14.3); White Blood Cell 9.5 10^3/uL (4.4-10.8)
[2022-11-12 05:34] LABS: Basophils % (manual) 0 (0.0-2.0); Blast Cells 0; Metamyelocytes % 0; Promyelocytes % 0; Reactive Lymphocytes 0
[2022-11-12 05:52] LABS: Anion Gap 11 (5-15); Carbon Dioxide 28 mmol/L (21-32); Chloride 109 mmol/L (98-107); Glucose 140 mg/dL (74-106); Sodium 148 mmol/L (136-145)
[2022-11-12 05:55] LABS: BUN/Creatinine Ratio 44.3 (10.0-20.0); Calcium 9.1 mg/dL (8.5-10.1); GFR African American 39 mL/min; GFR Non-African American 32 mL/min
[2022-11-12 06:12] LABS: Blood Urea Nitrogen 93 mg/dL (7-18)
[2022-11-12] MEDS: InsuLIN REG 1unit/0.01ml Soln (100units/ml) SC SCH ×4 (06:29→22:06)
[2022-11-12] MEDS: AMIODARONE 450mg/250ml AE 250 ML IV SCH (06:30)
[2022-11-12] MEDS: ACCU-CHEK COMFORT CURVE STRIP VI SCH ×4 (06:31→22:06)
[2022-11-12 07:14] LABS: Band Neutrophils % (manual) 1; Eosinophils % (manual) 2 (0-7); Lymphocytes % (manual) 6 (10.0-50.0); Monocytes % (manual) 15 (0-12); Myelocytes % 1
[2022-11-12] MEDS: cefTRIAXone 1GM/50ML D5W 50 ML IV SCH (08:38)
[2022-11-12] MEDS: ENOXAPARIN SOD 100 MG/1 ML SYRINGE SC SCH (08:38)
[2022-11-12] MEDS: INSULIN LANTUS (GLARGINE) 1 /0.01ml (100units/ml) SC SCH (08:39)
[2022-11-12] MEDS: FUROSEMIDE 100 MG/10ML VIAL IV SCH (08:39)
[2022-11-12] MEDS: PANTOPRAZOLE 40 MG/10 ML VIAL INJ IV SCH (08:39)
[2022-11-12] MEDS ORDERED: HALOPERIDOL 1 MG TAB PO ONE (10:15)
[2022-11-12] MEDS: METOPROLOL SUCCINATE XL 50 MG TAB PO SCH (10:30)
[2022-11-12] MEDS: D5W 5% 1,000 ML IV SCH ×2 (12:15→22:15)
[2022-11-12] MEDS: FUROSEMIDE 40 MG/4 ML VIAL IV SCH (16:45)
[2022-11-12] MEDS: ACETAMINOPHEN 325 MG TAB PO PRN (21:37)
[2022-11-12] MEDS: AMIODARONE HCL 200 MG TAB PO SCH (22:05)
[2022-11-13] VITALS (25 sets, daily range): BP systolic 126–183; BP diastolic 44–104
[2022-11-13] MEDS: IPRATROPIUM BROM 0.5 MG/2.5ML INH SOL NEB SCH ×5 (01:55→21:30)
[2022-11-13] MEDS: ALBUTEROL SULF 2.5 MG/0.5ML(0.5%) NEB SOLN NEB SCH ×5 (01:55→21:30)
[2022-11-13 05:51] LABS: Hematocrit 36.4 % (41.0-53.0); Hemoglobin 11.8 g/dL (13.5-17.5); Mean Corpuscular Hemoglobin 28.3 pg (28.0-32.0); Mean Corpuscular Hgb Conc. 32.4 g/dL (32.0-36.0); Mean Corpuscular Volume 87.4 fL (80.0-100.0); Red Blood Cells 4.16 10^6/uL (4.5-5.90); White Blood Cell 8.9 10^3/uL (4.4-10.8)
[2022-11-13 06:02] LABS: Basophils % (manual) 0 (0.0-2.0); Blast Cells 0; Metamyelocytes % 0; Myelocytes % 0; Promyelocytes % 0; Reactive Lymphocytes 0
[2022-11-13 06:10] LABS: Calcium 8.8 mg/dL (8.5-10.1); Potassium 3.4 mmol/L (3.5-5.1)
[2022-11-13 06:12] LABS: BUN/Creatinine Ratio 48.4 (10.0-20.0)
[2022-11-13] MEDS: ACCU-CHEK COMFORT CURVE STRIP VI SCH ×4 (06:30→22:17)
[2022-11-13] MEDS: FUROSEMIDE 40 MG/4 ML VIAL IV SCH ×2 (06:30→18:07)
[2022-11-13] MEDS: InsuLIN REG 1unit/0.01ml Soln (100units/ml) SC SCH ×4 (06:30→22:19)
[2022-11-13] MEDS: LABETALOL HCL 5 MG/ML 4ML SYRINGE IV PRN ×2 (06:31→22:18)
[2022-11-13 07:55] LABS: Band Neutrophils % (manual) 1; Eosinophils % (manual) 2 (0-7); Lymphocytes % (manual) 9 (10.0-50.0); Monocytes % (manual) 19 (0-12)
[2022-11-13] MEDS ORDERED: POTASSIUM EFFERVESENT TAB 25 MEQ PO ONE (08:00)
[2022-11-13] MEDS: AMIODARONE HCL 200 MG TAB PO SCH ×2 (10:09→22:17)
[2022-11-13] MEDS: METOPROLOL SUCCINATE XL 50 MG TAB PO SCH (10:10)
[2022-11-13] MEDS: PANTOPRAZOLE 40 MG/10 ML VIAL INJ IV SCH (10:11)
[2022-11-13] MEDS: cefTRIAXone 1GM/50ML D5W 50 ML IV SCH (10:11)
[2022-11-13] MEDS: ENOXAPARIN SOD 100 MG/1 ML SYRINGE SC SCH (10:11)
[2022-11-13] MEDS: INSULIN LANTUS (GLARGINE) 1 /0.01ml (100units/ml) SC SCH (10:14)
[2022-11-13] MEDS: D5W 5% 1,000 ML IV SCH ×2 (11:14→22:16)
[2022-11-14] VITALS (19 sets, daily range): BP systolic 103–163; BP diastolic 40–80
[2022-11-14] MEDS: IPRATROPIUM BROM 0.5 MG/2.5ML INH SOL NEB SCH ×6 (02:09→22:01)
[2022-11-14] MEDS: ALBUTEROL SULF 2.5 MG/0.5ML(0.5%) NEB SOLN NEB SCH ×6 (02:10→22:01)
[2022-11-14] MEDS: D5W 5% 1,000 ML IV SCH ×4 (04:15→15:23)
[2022-11-14] MEDS: FUROSEMIDE 40 MG/4 ML VIAL IV SCH (06:57)
[2022-11-14] MEDS: ACCU-CHEK COMFORT CURVE STRIP VI SCH ×4 (06:58→20:53)
[2022-11-14] MEDS: InsuLIN REG 1unit/0.01ml Soln (100units/ml) SC SCH ×4 (07:06→20:53)
[2022-11-14 07:13] LABS: BUN/Creatinine Ratio 43.4 (10.0-20.0); Calcium 8.3 mg/dL (8.5-10.1); Potassium 3.4 mmol/L (3.5-5.1)
[2022-11-14 07:14] LABS: Basophils # (auto) 0.1 10 ^3/uL (0-0.2); Basophils % (auto) 0.6 % (0.0-2.0); Eosinophils # (auto) 0.2 10 ^3/uL (0-0.8); Eosinophils % (auto) 1.7 % (0.0-7.0); Hematocrit 34.9 % (41.0-53.0); Hemoglobin 11.5 g/dL (13.5-17.5); Lymphocytes # (auto) 1.3 10 ^3/uL (0.4-5.4); Lymphocytes % (auto) 10.5 % (10.0-50.0); Mean Corpuscular Hemoglobin 28.5 pg (28.0-32.0); Mean Corpuscular Hgb Conc. 32.9 g/dL (32.0-36.0); Mean Corpuscular Volume 86.5 fL (80.0-100.0); Monocytes # (auto) 1.7 10 ^3/uL (0-1.3); Monocytes % (auto) 14.1 % (0.0-12.0); Neutrophils % (auto) 73.1 % (37.0-80.0); Nucleated Red Blood Cells % 0.2 %; Red Blood Cells 4.04 10^6/uL (4.5-5.90); Red Cell Distribution Width 14.6 % (11.8-14.3); White Blood Cell 12.3 10^3/uL (4.4-10.8)
[2022-11-14] MEDS: INSULIN LANTUS (GLARGINE) 1 /0.01ml (100units/ml) SC SCH (10:00)
[2022-11-14] MEDS: cefTRIAXone 1GM/50ML D5W 50 ML IV SCH (10:59)
[2022-11-14] MEDS: AMIODARONE HCL 200 MG TAB PO SCH ×2 (11:01→20:53)
[2022-11-14] MEDS: PANTOPRAZOLE 40 MG/10 ML VIAL INJ IV SCH (11:01)
[2022-11-14] MEDS: ENOXAPARIN SOD 100 MG/1 ML SYRINGE SC SCH (11:01)
[2022-11-14] MEDS: METOPROLOL SUCCINATE XL 50 MG TAB PO SCH (11:02)
[2022-11-14] MEDS: ACETAMINOPHEN 325 MG TAB PO PRN ×2 (13:07→22:30)
[2022-11-14] MEDS ORDERED: POTASSIUM CHLORIDE 20 MEQ, LIDOCAINE 1% (LOCAL ANESTH.) 2 ML in SODIUM CHL 0.9% 100 ML IV ONE (15:30)
[2022-11-14] MEDS ORDERED: HALOPERIDOL LACTATE 5 MG/ML INJ VIAL IM ONE (22:15)
[2022-11-15] VITALS (16 sets, daily range): BP systolic 102–158; BP diastolic 44–68
[2022-11-15] MEDS: ALBUTEROL SULF 2.5 MG/0.5ML(0.5%) NEB SOLN NEB SCH ×6 (02:42→22:47)
[2022-11-15] MEDS: IPRATROPIUM BROM 0.5 MG/2.5ML INH SOL NEB SCH ×6 (02:42→22:47)
[2022-11-15] MEDS: InsuLIN REG 1unit/0.01ml Soln (100units/ml) SC SCH ×4 (05:25→22:22)
[2022-11-15] MEDS: ACCU-CHEK COMFORT CURVE STRIP VI SCH ×4 (05:25→22:07)
[2022-11-15] MEDS: cefTRIAXone 1GM/50ML D5W 50 ML IV SCH (09:28)
[2022-11-15] MEDS: ENOXAPARIN SOD 100 MG/1 ML SYRINGE SC SCH (10:00)
[2022-11-15] MEDS: FUROSEMIDE 40 MG/4 ML VIAL IV SCH (10:25)
[2022-11-15] MEDS: PANTOPRAZOLE 40 MG/10 ML VIAL INJ IV SCH (10:25)
[2022-11-15] MEDS: METOPROLOL SUCCINATE XL 50 MG TAB PO SCH (10:25)
[2022-11-15] MEDS: AMIODARONE HCL 200 MG TAB PO SCH ×2 (10:25→22:07)
[2022-11-15] MEDS: D5W 5% 1,000 ML IV SCH ×2 (11:00→18:50)
[2022-11-15] MEDS: APIXABAN 2.5 MG TAB PO SCH (22:06)
[2022-11-16] MEDS: IPRATROPIUM BROM 0.5 MG/2.5ML INH SOL NEB SCH ×6 (02:14→22:30)
[2022-11-16] MEDS: ALBUTEROL SULF 2.5 MG/0.5ML(0.5%) NEB SOLN NEB SCH ×6 (02:14→22:30)
[2022-11-16] MEDS: ACETAMINOPHEN 325 MG TAB PO PRN ×2 (05:00→22:21)
[2022-11-16 05:22] VITALS: BP 154/59
[2022-11-16 06:35] LABS: Basophils # (auto) 0.1 10 ^3/uL (0-0.2); Basophils % (auto) 0.8 % (0.0-2.0); Eosinophils # (auto) 0.3 10 ^3/uL (0-0.8); Eosinophils % (auto) 4.4 % (0.0-7.0); Hemoglobin 11.3 g/dL (13.5-17.5); Lymphocytes # (auto) 1.1 10 ^3/uL (0.4-5.4); Mean Corpuscular Hemoglobin 28.4 pg (28.0-32.0); Mean Corpuscular Hgb Conc. 33.3 g/dL (32.0-36.0); Mean Corpuscular Volume 85.4 fL (80.0-100.0); Monocytes # (auto) 1.1 10 ^3/uL (0-1.3); Monocytes % (auto) 15.9 % (0.0-12.0); Neutrophils # (auto) 4.2 10 ^3/uL (1.6-8.6); Neutrophils % (auto) 62.9 % (37.0-80.0); Nucleated Red Blood Cells % 0.1 %; Red Blood Cells 3.98 10^6/uL (4.5-5.90); Red Cell Distribution Width 14.5 % (11.8-14.3); White Blood Cell 6.7 10^3/uL (4.4-10.8)
[2022-11-16] MEDS: ACCU-CHEK COMFORT CURVE STRIP VI SCH ×4 (06:42→21:41)
[2022-11-16] MEDS: InsuLIN REG 1unit/0.01ml Soln (100units/ml) SC SCH ×4 (06:42→21:42)
[2022-11-16 07:02] LABS: Potassium 3.1 mmol/L (3.5-5.1)
[2022-11-16 07:06] VITALS: BP 131/56
[2022-11-16 07:09] LABS: Albumin 1.8 g/dL (3.4-5.0); BUN/Creatinine Ratio 37.8 (10.0-20.0); Bilirubin, Total 0.5 mg/dL (0.2-1.0); Calcium 8.4 mg/dL (8.5-10.1); Total Protein 6.1 g/dL (6.4-8.2)
[2022-11-16] MEDS: PANTOPRAZOLE 40 MG/10 ML VIAL INJ IV SCH (09:54)
[2022-11-16] MEDS: AMIODARONE HCL 200 MG TAB PO SCH ×2 (09:55→21:41)
[2022-11-16] MEDS: METOPROLOL SUCCINATE XL 50 MG TAB PO SCH (09:55)
[2022-11-16] MEDS: FUROSEMIDE 40 MG/4 ML VIAL IV SCH (09:55)
[2022-11-16] MEDS: APIXABAN 2.5 MG TAB PO SCH ×2 (09:55→21:41)
[2022-11-16] MEDS: D5W 5% 1,000 ML IV SCH (12:44)
[2022-11-16 22:00] VITALS: BP 142/61
[2022-11-17] MEDS: ALBUTEROL SULF 2.5 MG/0.5ML(0.5%) NEB SOLN NEB SCH ×6 (02:27→22:24)
[2022-11-17] MEDS: IPRATROPIUM BROM 0.5 MG/2.5ML INH SOL NEB SCH ×6 (02:27→22:24)
[2022-11-17 05:00] VITALS: BP 146/60
[2022-11-17] MEDS: ACCU-CHEK COMFORT CURVE STRIP VI SCH ×4 (06:43→22:00)
[2022-11-17] MEDS: InsuLIN REG 1unit/0.01ml Soln (100units/ml) SC SCH ×4 (06:43→22:00)
[2022-11-17 08:29] VITALS: BP 100/47
[2022-11-17] MEDS: PANTOPRAZOLE 40 MG/10 ML VIAL INJ IV SCH (09:08)
[2022-11-17] MEDS: FUROSEMIDE 40 MG/4 ML VIAL IV SCH (09:08)
[2022-11-17] MEDS: APIXABAN 2.5 MG TAB PO SCH ×2 (09:09→22:44)
[2022-11-17] MEDS: AMIODARONE HCL 200 MG TAB PO SCH (09:09)
[2022-11-17] MEDS: METOPROLOL SUCCINATE XL 50 MG TAB PO SCH (09:09)
[2022-11-17] MEDS: INSULIN LANTUS (GLARGINE) 1 /0.01ml (100units/ml) SC SCH (09:29)
[2022-11-17 12:40] VITALS: BP 155/62
[2022-11-17 16:49] VITALS: BP 129/65
[2022-11-17 22:36] VITALS: BP 153/53
[2022-11-17] MEDS: LABETALOL HCL 5 MG/ML 4ML SYRINGE IV PRN (22:45)
[2022-11-17] MEDS: D5W 5% 1,000 ML IV SCH (23:00)
[2022-11-18] MEDS: IPRATROPIUM BROM 0.5 MG/2.5ML INH SOL NEB SCH ×4 (02:00→14:31)
[2022-11-18] MEDS: ALBUTEROL SULF 2.5 MG/0.5ML(0.5%) NEB SOLN NEB SCH ×4 (02:00→14:31)
[2022-11-18 05:45] VITALS: BP 149/54
[2022-11-18] MEDS: InsuLIN REG 1unit/0.01ml Soln (100units/ml) SC SCH ×2 (06:03→11:32)
[2022-11-18] MEDS: ACCU-CHEK COMFORT CURVE STRIP VI SCH ×2 (06:04→11:31)
[2022-11-18 06:16] LABS: Basophils # (auto) 0 10 ^3/uL (0-0.2); Basophils % (auto) 0.8 % (0.0-2.0); Eosinophils # (auto) 0.3 10 ^3/uL (0-0.8); Eosinophils % (auto) 5.3 % (0.0-7.0); Hemoglobin 11.3 g/dL (13.5-17.5); Lymphocytes # (auto) 1.2 10 ^3/uL (0.4-5.4); Lymphocytes % (auto) 22.5 % (10.0-50.0); Mean Corpuscular Hemoglobin 28.4 pg (28.0-32.0); Mean Corpuscular Hgb Conc. 33.3 g/dL (32.0-36.0); Mean Corpuscular Volume 85.4 fL (80.0-100.0); Monocytes # (auto) 0.9 10 ^3/uL (0-1.3); Monocytes % (auto) 16.7 % (0.0-12.0); Neutrophils # (auto) 2.8 10 ^3/uL (1.6-8.6); Neutrophils % (auto) 54.7 % (37.0-80.0); Nucleated Red Blood Cells % 0.1 %; Red Blood Cells 3.99 10^6/uL (4.5-5.90); Red Cell Distribution Width 14.3 % (11.8-14.3); White Blood Cell 5.2 10^3/uL (4.4-10.8)
[2022-11-18 06:25] LABS: BUN/Creatinine Ratio 30.4 (10.0-20.0); Calcium 8.3 mg/dL (8.5-10.1); Potassium 3.2 mmol/L (3.5-5.1)
[2022-11-18 08:30] VITALS: BP 139/42
[2022-11-18] MEDS ORDERED: POTASSIUM CHL 20 Meq TABLET PO ONE (09:30)
[2022-11-18] MEDS ORDERED: AMIODARONE HCL 200 MG TAB PO SCH (10:00)
[2022-11-18] MEDS: APIXABAN 2.5 MG TAB PO SCH (11:01)
[2022-11-18] MEDS: PANTOPRAZOLE 40 MG/10 ML VIAL INJ IV SCH (11:01)
[2022-11-18] MEDS: FUROSEMIDE 40 MG/4 ML VIAL IV SCH (11:05)
[2022-11-18] MEDS: METOPROLOL SUCCINATE XL 50 MG TAB PO SCH (11:06)
[2022-11-18] MEDS: INSULIN LANTUS (GLARGINE) 1 /0.01ml (100units/ml) SC SCH (11:19)
[2022-11-18] MEDS ORDERED: Glucerna Carbsteady SHAKE Vanilla 8oz PO SCH (12:00)
[2022-11-18 12:30] VITALS: BP 117/52
[2022-11-18 13:54] VITALS: BP 139/42
== END 2022-11-18 15:09 | DRG 207 ==
LOC: ER 11:55 → EDBD 11:55 → TELE 15:10 → ICU CENTRL 11-05 09:41 → DOU IN ICU 11-12 10:53 → TELE-WESTW 11-15 17:32
PROVIDERS: ADMIT Nurse Practitioner Family; ATTEND Nurse Practitioner Acute Care
PROC: 05HA33Z Insertion of Infusion Device into Left Brachial Vein, Percutaneous Approach (ICD-10-PCS; 2022-11-03)
PROC: B54NZZA Ultrasonography of Left Upper Extremity Veins, Guidance (ICD-10-PCS; 2022-11-03)
PROC: 5A1D70Z Performance of Urinary Filtration, Intermittent, Less than 6 Hours Per Day (ICD-10-PCS; 2022-11-04)
PROC: 5A1955Z Respiratory Ventilation, Greater than 96 Consecutive Hours (ICD-10-PCS; principal; 2022-11-05)
PROC: 0BH17EZ Insertion of Endotracheal Airway into Trachea, Via Natural or Artificial Opening (ICD-10-PCS; 2022-11-05)
PROC: 5A1D70Z Performance of Urinary Filtration, Intermittent, Less than 6 Hours Per Day (ICD-10-PCS; 2022-11-06)
PROC: 05HF33Z Insertion of Infusion Device into Left Cephalic Vein, Percutaneous Approach (ICD-10-PCS; 2022-11-08)
PROC: B54NZZA Ultrasonography of Left Upper Extremity Veins, Guidance (ICD-10-PCS; 2022-11-08)
PROC: 5A1D70Z Performance of Urinary Filtration, Intermittent, Less than 6 Hours Per Day (ICD-10-PCS; 2022-11-08)
DX: J96.01 Acute respiratory failure with hypoxia (principal); G93.41 Metabolic encephalopathy; N17.0 Acute kidney failure with tubular necrosis; E46 Unspecified protein-calorie malnutrition; I13.0 Hypertensive heart and chronic kidney disease with heart failure and stage 1 through stage 4 chronic kidney disease, or unspecified chronic kidney disease; E87.20 Acidosis, unspecified; I82.411 Acute embolism and thrombosis of right femoral vein; G93.1 Anoxic brain damage, not elsewhere classified; N39.0 Urinary tract infection, site not specified; Z20.822 Contact with and (suspected) exposure to COVID-19; E87.5 Hyperkalemia; E11.22 Type 2 diabetes mellitus with diabetic chronic kidney disease; E66.01 Morbid (severe) obesity due to excess calories; E78.5 Hyperlipidemia, unspecified; E83.51 Hypocalcemia; I50.9 Heart failure, unspecified; N18.9 Chronic kidney disease, unspecified; I44.0 Atrioventricular block, first degree; D63.1 Anemia in chronic kidney disease; F17.200 Nicotine dependence, unspecified, uncomplicated; G40.909 Epilepsy, unspecified, not intractable, without status epilepticus; G93.89 Other specified disorders of brain; Z82.0 Family history of epilepsy and other diseases of the nervous system; Z80.9 Family history of malignant neoplasm, unspecified; Z82.49 Family history of ischemic heart disease and other diseases of the circulatory system; Z83.3 Family history of diabetes mellitus; Z68.32 Body mass index [BMI] 32.0-32.9, adult
CPT/HCPCS: 36415; 36600; 70450; 70551; 71045; 76775; 78582; 80048; 80053; 80061; 80307; 81001; 82306; 82570; 82607; 82746; 82805; 82962; 83036; 83735; 83880; 83970; 84100; 84132; 84156; 84300; 84443; 84484; 84550; 85007; 85025; 85027; 85379; 85610; 85730; 87070; 87081; 87086; 87205; 87340; 87426; 90935; 93005; 93306; 93886; 93970; 94003; 94640; 94644; 95819; 96365; 96374; 97110; 97116; 97163; 97530; C9113; G0378; J0696; J1815; J2001; J2250; J2405; J2704; J3490; J7060

== ENCOUNTER 2022-12-19 11:56 | Emergency (ER) | payer OTHER ==
[~2022-12-19] VITALS: Ht 182.9 cm; Wt 97.8 kg
[~2022-12-19 11:56] MED LIST: AMLO-489 PO; ATEN50TA PO; BENZ100C97 PO; DOXY-111 PO; FURO40TA4 PO; GAB100C PO; HYDR50TA15 PO; LISI20TA28 PO; PRE5T PO
[2022-12-19 12:51] LABS: Basophils # (auto) 0.1 10 ^3/uL (0-0.2); Basophils % (auto) 0.7 % (0.0-2.0); Eosinophils # (auto) 0.2 10 ^3/uL (0-0.8); Eosinophils % (auto) 1.4 % (0.0-7.0); Hemoglobin 13.3 g/dL (13.5-17.5); Lymphocytes # (auto) 2.3 10 ^3/uL (0.4-5.4); Lymphocytes % (auto) 19.2 % (10.0-50.0); Mean Corpuscular Hemoglobin 27.8 pg (28.0-32.0); Mean Corpuscular Hgb Conc. 32.4 g/dL (32.0-36.0); Mean Corpuscular Volume 85.8 fL (80.0-100.0); Monocytes # (auto) 1.1 10 ^3/uL (0-1.3); Monocytes % (auto) 9.2 % (0.0-12.0); Neutrophils # (auto) 8.2 10 ^3/uL (1.6-8.6); Neutrophils % (auto) 69.5 % (37.0-80.0); Red Blood Cells 4.78 10^6/uL (4.5-5.90); Red Cell Distribution Width 17.5 % (11.8-14.3); White Blood Cell 11.8 10^3/uL (4.4-10.8)
[2022-12-19 13:08] LABS: INR 1.22 (0.9-1.15)
[2022-12-19 14:29] LABS: BUN/Creatinine Ratio 17.3 (10.0-20.0); Bilirubin, Total 0.7 mg/dL (0.2-1.0)
[2022-12-19 14:30] LABS: Albumin 3.1 g/dL (3.4-5.0); Total Protein 6.8 g/dL (6.4-8.2)
[2022-12-19 14:40] LABS: Urine Bacteria NONE SEEN /hpf (None Seen); Urine Blood TRACE /uL (Negative); Urine Hyaline Cast FEW /lpf (0 - 2); Urine Specific Gravity 1.015 (1.001-1.035); Urine WBC 1 /hpf (0 - 3)
[2022-12-19] MEDS ORDERED: metroNIDAZOLE 500MG/100ML 100 ML IV ONE (15:00)
[2022-12-19 16:38] VITALS: BP 147/73
== END 2022-12-19 16:48 | disposition short-term general hospital (02) ==
LOC: ER 11:56
DX: K52.9 Noninfective gastroenteritis and colitis, unspecified (principal); K80.20 Calculus of gallbladder without cholecystitis without obstruction; D72.829 Elevated white blood cell count, unspecified; E11.22 Type 2 diabetes mellitus with diabetic chronic kidney disease; I12.9 Hypertensive chronic kidney disease with stage 1 through stage 4 chronic kidney disease, or unspecified chronic kidney disease; N18.9 Chronic kidney disease, unspecified; E78.5 Hyperlipidemia, unspecified; Z20.822 Contact with and (suspected) exposure to COVID-19
CPT/HCPCS: 36415; 74176; 80053; 81001; 82962; 85025; 85610; 85730; 87426; 96365; 99285; J3490

== ENCOUNTER 2022-12-27 02:18 | Emergency (ER) | payer OTHER ==
[~2022-12-27] VITALS: Ht 182.9 cm; Wt 93.1 kg
[2022-12-27 03:14] LABS: Hematocrit 37.1 % (41.0-53.0); Hemoglobin 12.4 g/dL (13.5-17.5); Mean Corpuscular Hemoglobin 28.2 pg (28.0-32.0); Mean Corpuscular Hgb Conc. 33.4 g/dL (32.0-36.0); Mean Corpuscular Volume 84.4 fL (80.0-100.0); Red Blood Cells 4.39 10^6/uL (4.5-5.90); Red Cell Distribution Width 16.9 % (11.8-14.3); White Blood Cell 7.6 10^3/uL (4.4-10.8)
[2022-12-27 03:18] LABS: Basophils % (manual) 0 (0.0-2.0); Blast Cells 0; Metamyelocytes % 0; Myelocytes % 0; Promyelocytes % 0; Reactive Lymphocytes 0
[2022-12-27 03:19] LABS: Albumin 2.5 g/dL (3.4-5.0); BUN/Creatinine Ratio 20.2 (10.0-20.0); Calcium 8.8 mg/dL (8.5-10.1); INR 1.09 (0.9-1.15); Magnesium 1.8 mg/dL (1.6-2.6); Partial Thromboplastin Time 32.2 sec (24.6-33.4); Potassium 4.1 mmol/L (3.5-5.1)
[2022-12-27 03:22] LABS: Bilirubin, Total 0.3 mg/dL (0.2-1.0); Total Protein 6.6 g/dL (6.4-8.2)
[2022-12-27] MEDS ORDERED: LACTATED RINGER'S 1,000 ML IV ONE (03:45)
[2022-12-27 04:27] LABS: Band Neutrophils % (manual) 8; Eosinophils % (manual) 2 (0-7); Lymphocytes % (manual) 22 (10.0-50.0); Monocytes % (manual) 15 (0-12)
[2022-12-27] MEDS ORDERED: ASPirin 325 MG TAB PO ONE (05:30)
[2022-12-27 07:20] VITALS: BP 123/50
== END 2022-12-27 07:44 | disposition short-term general hospital (02) ==
LOC: ER 02:18 → EDBD 02:18 → ER 07:44
DX: I63.9 Cerebral infarction, unspecified (principal); E86.0 Dehydration; E11.65 Type 2 diabetes mellitus with hyperglycemia; E11.22 Type 2 diabetes mellitus with diabetic chronic kidney disease; I12.9 Hypertensive chronic kidney disease with stage 1 through stage 4 chronic kidney disease, or unspecified chronic kidney disease; N18.9 Chronic kidney disease, unspecified; E78.5 Hyperlipidemia, unspecified; J44.9 Chronic obstructive pulmonary disease, unspecified; Z88.6 Allergy status to analgesic agent; Z20.822 Contact with and (suspected) exposure to COVID-19
CPT/HCPCS: 36415; 70450; 71045; 71250; 74176; 80053; 82962; 83735; 83880; 84484; 85007; 85027; 85610; 85730; 87426; 87804; 93005; 96360; 99291

== ENCOUNTER 2025-04-15 05:02 | Inpatient (IN) | payer OTHER ==
[~2025-04-15] VITALS: Ht 182.9 cm; Wt 103.1 kg
[~2025-04-15 05:02] MED LIST changes: -AMLO-489 PO; +AMLO1TAB22 PO; -HYDR50TA15 PO; +HYDR50TA47 PO; -LISI20TA28 PO; +LISI20TA56 PO
--- NOTE | 2025-04-15 05:44 | ED.PDOC ---
History of Present Illness HPI Comments 89-year-old male who was brought in by ambulance from private residence for chief complaint of general weakness and fall injury. Per EMS report, patient was ambulating to use his bathroom with his walker when he lost balance when he felt weak and fell backwards onto the floor. Positive head injury to posterior side of head. No lost of consciousness. Patient endorses on being weak for approximately 1x week. Denies any additional injuries or further acute symptoms. Vitals were noted to have been stable, with exception of an initial SpO2 of 87%RA. En route, patient was placed on 2LPM O2, with SpO2 improving to 92%. Chief Complaint: General Weakness Time Seen by MD: 05:10 Primary Care Provider: CARLOS MANUEL Reviewed Notes: Nurses Notes, Medications, Allergies Allergies: Coded Allergies: NO KNOWN ALLERGIES (Unverified , 08/16/15) Home Meds Reported Medications Dabigatran Etexilate Mesylate (Dabigatran Etexilate) 75 Mg Cap, 1 CAP PO BID 04/15/25 Atorvastatin Calcium (ATORVASTATIN CALCIUM) 20 Mg Tab, 1 TAB PO HS 04/15/25 Amiodarone HCl (Amiodarone HCl) 200 Mg Tab, 1 TAB PO DAILY 04/15/25 Prednisone (Prednisone) 5 Mg Tab, TAB PO 11/03/22 Lisinopril (Lisinopril) 20 Mg Tab, 1 TAB PO BID 11/03/22 Atenolol (Atenolol) 50 Mg Tab, 1 TAB PO BID 11/03/22 Doxycycline Monohydrate (Doxycycline Monohydrate) 100 Mg Tab, 1 TAB PO BID 11/03/22 Gabapentin (Gabapentin) 100 Mg Cap, CAP PO 11/03/22 Hydralazine Hcl (Hydralazine Hcl) 50 Mg Tab, 1 TAB PO TID 11/03/22 Furosemide (Furosemide) 40 Mg Tab, 1 TAB PO DAILY 11/03/22 Amlodipine Besylate (Amlodipine Besylate) 5 Mg Tab, 1 TAB PO DAILY 11/03/22 Discontinued Reported Medications Benzonatate (Benzonatate) 100 Mg Cap, 1 CAP PO TID 11/03/22 Information Source: Patient, Emergency Med Personnel Mode of Arrival: EMS Severity: Moderate Timing: Hours Duration: Since onset Prehospital treatment: 12 Lead EKG, Accucheck (110), Materials Planning Analyst, Oxygen Past Medical History PAST MEDICAL HISTORY: CKF, COPD, DM, High Lipids, HTN, UTI'S Past Medical History (Other): Acute hypoxic respiratory failure bradycardia RONALDO 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 Surgical History: Denies all surgeries Family History Family History: Reviewed,noncontributory to illness, Family hx of DM, Family hx of Cancer Social History Smoker: Non-Smoker Alcohol: Denies ETOH Use Drugs: Denies Drug Use Lives In: Home All Other Systems: Reviewed and Negative (Comprehensive systems review obtained and negative except for what is stated in the HPI.) Physical Exam General Appearance: Moderate Distress, Normal HEENT: Normal ENT Inspection, Pharynx Normal, TMs Normal, Other (normocephalic, atraumatic head) Neck: Full Range of Motion, Non-Tender, Normal, Normal Inspection Respiratory: Chest Non-Tender, Lungs Clear, No Accessory Muscle Use, No R espiratory Distress, Normal Breath Sounds Cardiovascular: No Edema, No JVD, No Murmur, No Gallop, Normal Peripheral Pulses, Regular Rate/Rhythm Breast Exam: Deferred Gastrointestinal: No Organomegaly, Non Tender, No Pulsatile Mass, Normal Bowel Sounds, Soft Genitalia: Deferred Pelvic: Deferred Rectal: Deferred Extremities: No calf tenderness, Normal capillary refill, Normal inspection, Normal range of motion, Non-tender, No pedal edema Musculoskeletal : Apperance: Normal Neurologic: Alert, supervisor brake repair II-XII nml as Tested, No Motor Deficits, Normal Affect, Normal Mood, No Sensory Deficits Cerebellar Function: NOT DONE Reflexes: NOT DONE Skin: Dry, Normal Color, Warm, Wounds (ulcer on left medial aspect at the base of metatarsal bone of great toe; full-thickness, foul ordor, no puss discharge) Peripheral Pulses: 3+ Radial (R), 3+ Radial (L) Lymphatic: No Adenopathy Was a procedure done? Was a procedure done?: No Differential Dx Considerations may include: viral syndrome, UTI, URI, electrolyte imbalance, dehydration, fractures, dislocations, bruising, sepsis, electrolyte disorders, hypoglycemia, deconditioning, dka, diabetic nonketotic syndrome, acs, arrhythmias, sepsis diabetic foot ulcer, osteomyelitis intracranial bleed, cerebral contusion, concussion, skull fracture X-Ray, Labs, Meds, VS Vital Signs Date Time Temp Pulse Resp B/P (MAP) Pulse Ox O2 Delivery O2 Flow Rate FiO2 8/25/25 10:00 68 13 162/64 (96) 98 04/15/25 08:02 67 13 98 Nasal Cannula* 2 28 04/15/25 08:00 97.1 67 13 154/64 (94) 98 97.1 04/15/25 07:17 68 04/15/25 06:24 98.8 66 15 154/64 (94) 96 98.8 04/15/25 05:28 70 04/15/25 05:12 98.8 73 18 149/70 94 98.8 Lab Test 04/15/25 09:21 04/15/25 06:36 04/15/25 05:39 Range/Units Troponin I High Sensitivity 69 *H 65 *H 72 *H </=54 ng/L White Blood Count 11.6 H 4.4-10.8 10^3/uL Red Blood Count 4.59 4.5-5.90 10^6/uL Hemoglobin 14.3 13.5-17.5 g/dL Hematocrit 41.8 41.0-53.0 % Mean Corpuscular Volume 91.1 80.0-100.0 fL Mean Corpuscular Hemoglobin 31.2 28.0-32.0 pg Mean Corpuscular Hemoglobin Concent 34.2 32.0-36.0 g/dL Red Cell Distribution Width 14.3 11.8-14.3 % Platelet Count 152 140-450 10^3/uL Mean Platelet Volume 8.6 6.9-10.8 fL Neutrophils (%) (Auto) 65.5 37.0-80.0 % Lymphocytes (%) (Auto) 16.6 10.0-50.0 % Monocytes (%) (Auto) 16.5 H 0.0-12.0 % Eosinophils (%) (Auto) 0.9 0.0-7.0 % Basophils (%) (Auto) 0.5 0.0-2.0 % Neutrophils # (Auto) 7.6 1.6-8.6 10 ^3/uL Lymphocytes # (Auto) 1.9 0.4-5.4 10 ^3/uL Monocytes # (Auto) 1.9 H 0-1.3 10 ^3/uL Eosinophils # (Auto) 0.1 0-0.8 10 ^3/uL Basophils # (Auto) 0.1 0-0.2 10 ^3/uL Nucleated Red Blood Cells 0.1 % Sodium Level 140 136-145 mmol/L Potassium Level 4.1 3.5-5.1 mmol/L Chloride Level 101 98-107 mmol/L Carbon Dioxide Level 28 20-31 mmol/L Anion Gap 11 5-15 Blood Urea Nitrogen 40 H 9-23 mg/dL Creatinine 2.39 H 0.700-1.30 mg/dL Glomerular Filtration Rate Calc 25 >90 mL/min BUN/Creatinine Ratio 16.7 10.0-20.0 Serum Glucose 122 H 74-106 mg/dL Calcium Level 9.0 8.7-10.4 mg/dL Current Medications Medications (Trade) Dose Ordered Sig/Luis F Route Start Time Stop Time Status Last Admin Piperacillin Sod/ Tazobactam Sod 100 ml @ 100 mls/hr ONCE ONCE IV 04/15/25 06:00 04/15/25 06:59 DC 04/15/25 09:46 Enoxaparin Sodium (Lovenox) 90 mg ONCE ONCE SC 04/15/25 07:30 04/15/25 07:31 DC 04/15/25 07:47 Patient alert. Complaining of chest discomfort. Vitals stable. Answering questions. Has a wound on his foot. EKG does show chronic changes. Cardiology consultation. Kidney function elevated. Cardiac marker elevated. Was given Lovenox. WBC elevated. Was given Zosyn. Infection from the foot. Was given clindamycin. Explained to the patient. Continue to monitor. [facility] approved inpatient admission [id number]. Time of 1ST Reevaluation: 05:40 Reevaluation 1ST: Unchanged Patient Education/Counseling: Diagnosis, Treatment Family Education/Counseling: No Family Present Comments I started the workup after my evaluation for this patient. However my shift is coming to an end a note was signed this patient out to the care of Dr. Ace Patient has multiple comorbidities. He is also diabetic with an active left foot diabetic foot ulcer. The concerns include diabetic complications such as DKA, hyperosmolar nonketotic syndrome, dehydration, hypoglycemia, electrolyte disorders, as was sepsis related to the diabetic foot ulcer. Patient's blood sugar can also be out of control as a result of the infection which he has not to this severity of sepsis but which can constipation to be dehydrated and hyperglycemic. In addition underlying cardiac condition, dehydration, overall deconditioning, as well as medication side effects can also constipation to be, we can and follow up. Additional Information Previous visits reviewed: November 03, 2022 and December 27, 2022 encounters for acute hypoxic respiratory failure and generalized weakness The following tests were ordered, and results were reviewed by me: CT head w/o contrast, troponin, EKG, BMP, CXR, CBC Additional Information was gathered from interviewing the following independent historians: EMS I reviewed and agreed with the following test results read by other providers:CT head w/o contrast and CXR I discussed treatment and results with medical personnel and: patient SEPSIS Sepsis Screen Physician Orders Chest Portable (04/15/25 05:21) Head Without Contrast (04/15/25 05:21) Continuous Ekg Monitoring 08,12,16,20,00,04 (04/15/25 05:21) Electrocardigram (04/15/25 08:21) L Foot 3 View Xray (04/15/25 05:48) * Cardiology Consult (04/15/25 07:21) * Wound Consult (04/15/25 ) Wound Culture W/ Gs (04/15/25 12:01) Blood Culture (04/15/25 12:01) Vital Signs Date Time Temp Pulse Resp B/P (MAP) Pulse Ox O2 Delivery O2 Flow Rate FiO2 04/15/25 10:00 68 13 162/64 (96) 98 04/15/25 08:02 67 13 98 Nasal Cannula* 2 28 04/15/25 08:00 97.1 67 13 154/64 (94) 98 97.1 04/15/25 07:17 68 04/15/25 06:24 98.8 66 15 154/64 (94) 96 98.8 04/15/25 05:28 70 04/15/25 05:12 98.8 73 18 149/70 94 98.8 Laboratory Tests Test 04/15/25 05:39 White Blood Count 11.6 10^3/uL (4.4-10.8) H Medications Medications Dose Ordered Sig/Luis F Route Start Time Stop Time Status Last Admin Dose Admin Enoxaparin Sodium 90 mg ONCE ONCE SC 04/15/25 07:30 04/15/25 07:31 DC 04/15/25 07:47 Piperacillin Sod/ Tazobactam Sod 100 ml @ 100 mls/hr ONCE ONCE IV 04/15/25 06:00 04/15/25 06:59 DC 04/15/25 09:46 Departure 1 Departure Time of Disposition: 17:41 Impression: Primary Impression: Closed head injury Qualified Codes: S09.90XA - Unspecified injury of head, initial encounter Additional Impressions: Diabetic foot ulcer Qualified Codes: E13.621 - Other specified diabetes mellitus with foot ulc er; L97.409 - Non-pressure chronic ulcer of unspecified heel and midfoot with unspecified severity Generalized weakness NSTEMI (non-ST elevated myocardial infarction) Demand ischemia Disposition: ADMITTED INPATIENT Admit to: Med Surg Condition: Guarded Critical Care Note Critical Care Time?: Yes (55 min-critical care time only) Critical care comment: Due to concerns for patients condition deteriorating, the care required my highest level of attention and readiness to intervene. I assessed the patient, reviewed the medical records, ordered the appropriate tests and treatments, then reassessed for results and responsiveness. I communicated with medical personnel and consultants and formulated a plan of care. Total critical care time excludes any procedures Stability Stability form required: No Heart Score Heart Score: Heart Score Response (Comments) Value History Slightly Suspicious 0 EKG Normal 0 Age >65 2 Risk Factors >3 or Hx ASHD 2 Troponin 1-2 x's Normal limit 1 Total 5 I personally scribed for SILKE LOVELACE MD ([email or web address]) on 04/15/25 at 05:44. Electronically submitted by Trenton Peguero ([email or web address]). SILKE LOVELACE MD Apr 15, 2025 05:44 MER KEBEDE MD Apr 15, 2025 07:30
[2025-04-15 06:14] LABS: Hematocrit 41.8 % (41.0-53.0); Hemoglobin 14.3 g/dL (13.5-17.5); Mean Corpuscular Hemoglobin 31.2 pg (28.0-32.0); Mean Corpuscular Volume 91.1 fL (80.0-100.0); Nucleated Red Blood Cells % 0.1 %
[2025-04-15 06:26] LABS: Chloride 101 mmol/L (98-107); Potassium 4.1 mmol/L (3.5-5.1); Sodium 140 mmol/L (136-145)
[2025-04-15 06:27] LABS: Anion Gap 11 (5-15); Calcium 9.0 mg/dL (8.7-10.4); Carbon Dioxide 28 mmol/L (20-31)
[2025-04-15 06:32] LABS: BUN/Creatinine Ratio 16.7 (10.0-20.0)
[2025-04-15 06:36] LABS: Blood Urea Nitrogen 40 mg/dL (9-23); Glucose 122 mg/dL (74-106)
--- NOTE | 2025-04-15 07:22 | ECG ---
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
--- NOTE | 2025-04-15 07:23 | DVH ---
CHEST RADIOGRAPH Indication: Syncope Technique: Single frontal view of the chest was obtained Comparison: XY CHEST PORTABLE on DOS: 12/27/22 FINDINGS: Lines and Tubes: None Lungs: There is a right basilar opacity. Pleura: No effusion. No pneumothorax. Cardiomediastinal contours: Unremarkable Bones: No acute osseous abnormality. IMPRESSION: 1. Right basilar opacity which may represent atelectasis or pneumonia.
--- NOTE | 2025-04-15 07:29 | DVH ---
EXAM: XY L FOOT 3 VIEW XRAY HISTORY: r/o osteomyelitis COMPARISON: None TECHNIQUE: Three views of the left foot were performed. FINDINGS: No acute fracture or dislocation are identified about the left foot. Hallux valgus. There is an erosi on in the medial 1st metatarsal head. Ulceration in the medial soft tissues of the foot. IMPRESSION: 1. Findings suspicious for osteomyelitis in the 1st metatarsal head adjacent to soft tissue ulceratio n. 2. Hallux valgus.
--- NOTE | 2025-04-15 07:32 | ECG ---
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
--- NOTE | 2025-04-15 07:36 | DVH ---
CLINICAL INFORMATION: 89 years old, Male; injury, syncope. TECHNIQUE: Axial imaging was obtained through the brain without contrast. Coronal and sagittal reform atted images were obtained, reviewed, and stored. Images were reviewed in brain and bone windows. Al l CT scans at this medical facility are performed using dose modulation techniques as appropriate to a performed exam including the following: Automated exposure control was utilized; adjustment of the MA and/or KV according to patient size; and use of iterative reconstruction technique. CTDIvol = 60.0 4 mGy DLP = 962.41 mGy-cm COMPARISON: CT HEAD WITHOUT CONTRAST on DOS: 12/27/22, CT HEAD W WO CONTRAST on DOS: 11/14/22, MRI BRAIN HEAD WO CONTRAST on DOS: 11/05/22 FINDINGS: There is no acute intracranial hemorrhage. No mass effect or midline shift. 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 Stable appearing encephalomalacia also seen in the left occipital l obe. Scattered areas of hypoattenuation are seen in the periventricular and subcortical white matter, which are nonspecific but most likely sequelae of small vessel ischemic disease. The ventricles and sulci are within normal limits in size for age. Basal cisterns are patent. The calvarium is unremark able. Mild mucosal thickening of the paranasal sinuses. Mastoid air cells are clear. IMPRESSION: 1. No CT evidence of acute intracranial abnormality. 2. Nonacute findings as described above.
[2025-04-15] MEDS: ENOXAPARIN SOD 100 MG/1 ML SYRINGE SC ONE (07:47)
[2025-04-15 08:02] VITALS: PULSE 67; RESP 13; O2SAT 98
[2025-04-15] MEDS: PIPERACILLIN-TAZOB 3.375GM 100 ML IV ONE (09:46)
[2025-04-15] MEDS ORDERED: HYDROcodone-ACET 5/325MG TAB PO PRN (12:15)
[2025-04-15] MEDS ORDERED: ACETAMINOPHEN 325 MG TAB PO PRN (12:15)
[2025-04-15] MEDS ORDERED: DOCUSATE SOD 100 MG CAP PO PRN (12:15)
[2025-04-15] MEDS ORDERED: ONDANSETRON HCL 4 MG/2 ML VIAL IV PRN (12:15)
[2025-04-15] MEDS ORDERED: MORPHINE SULFATE INJ 2 MG/ml SYRG IV PRN (12:15)
[2025-04-15] MEDS ORDERED: NITROGLYCERIN 0.4 MG SL TAB SL PRN (12:15)
--- NOTE | 2025-04-15 12:57 | DVHHP2 ---
History of Present Illness Reason for Visit: Generalized weakness History of Present Illness Vinny Erickson is an 89-year-old male with past medical history of diabetes, CHF, hypertension, CVA, hyperlipidemia, and chronic kidney disease, who came to the hospital for generalized weakness. This morning the patient was walking to the bathroom with his walker when he lost his strength and fell and hit his head. His called EMS to help get him up. When they arrived his blood pressure was SBP in the 70's and he was too weak to get up to the gurney and they had to help. him. Patient and state he has been progressively getting weaker over the last week. He has had a diabetic foot ulcer for about 1 year. He has home health that comes 3/week to change his dressings. He states this last week the home health nurse told him the wound was looking worse and to go to podiatry. He went to Podiatry on Tuesday, the wound was debrided and he was told he was going to need to follow up down in [place] due to the severity of the wound. While in ER troponin was mildly elevated, ER consulted cardiology. Cardiovascular: CHF, HTN, hyperipidemia RN TELE: CVA Renal/: Chronic renal insuff Endocrine: Diabetes Past Surgical History: Other (left leg) Smoke: No ALCOHOL: none Drugs: None Lives: with Family Domestic Violence: Neg Review of Systems Constitutional: No: Fever, Chills, Sweats, Weakness, Malaise, Other Eyes: No: Pain, Vision change, Conjunctivae inflammation, Eyelid inflammation, Other, Redness ENT: No: Ear pain, Ear discharge, Nose pain, Nose discharge, Nose congestion, Mouth pain, Mouth swelling, Throat pain, Throat swelling, Other Respiratory: No: Cough, Dry, Shortness of breath, SOB with excertion, Wheezing, Hemoptysis, Pleuritic Pain, Sputum, Wheezing, Other Cardiovascular: No: Chest Pain, Palpitations, Orthopnea, Paroxysmal Noc. Dyspnea, Edema, Lt Headedness, Other Gastrointestinal: No: Nausea, Vomiting, Abdominal Pain, Diarrhea, Constipation, Melena, Hematochezia, Other Genitourinary: No Dysuria, No Frequency, No Incontinence, No Hematuria, No Retention, No Other Musculoskeletal: No: other, neck pain, shoulder pain, arm pain, back pain, hand pain, leg pain, foot pain Skin: Lesions (Diabetic foot ulcer); No: Rash, Jaundice, Bruising, Other Neurological: Weakness, Incoordination; No: Numbness, Change in speech, Confusion, Seizures, Other Allergies: Coded Allergies: NO KNOWN ALLERGIES (Unverified , 08/16/15) Exam Vital Signs Vital Signs Date Time Temp Pulse Resp B/P (MAP) Pulse Ox O2 Delivery O2 Flow Rate FiO2 04/15/25 10:00 68 13 162/64 (96) 98 04/15/25 08:02 Nasal Cannula* 2 28 04/15/25 08:00 97.1 97.1 General Appearance: Alert, Oriented X3, Cooperative HEENT: Atraumatic, PERRLA, Other (Mucous membr dry) Respiratory: Clear to auscultation, Normal air movement Cardiovascular: Regular rate, Normal S1, Normal S2, No murmurs Abdominal: Normal bowel sounds, Soft, No tenderness Extremities: No clubbing, No cyanosis Skin: No significant lesion (left foot diabetic ulcer, wound to right hip) Neuro: Normal speech Psych/Mental Status: Mental status NL, Mood NL Labs/Xrays Labs Test 04/15/25 09:21 04/15/25 05:39 Range/Units Troponin I High Sensitivity 69 *H </=54 ng/L White Blood Count 11.6 H 4.4-10.8 10^3/uL Red Blood Count 4.59 4.5-5.90 10^6/uL Hemoglobin 14.3 13.5-17.5 g/dL Hematocrit 41.8 41.0-53.0 % Mean Corpuscular Volume 91.1 80.0-100.0 fL Mean Corpuscular Hemoglobin 31.2 28.0-32.0 pg Mean Corpuscular Hemoglobin Concent 34.2 32.0-36.0 g/dL Red Cell Distribution Width 14.3 11.8-14.3 % Platelet Count 152 140-450 10^3/uL Mean Platelet Volume 8.6 6.9-10.8 fL Neutrophils (%) (Auto) 65.5 37.0-80.0 % Lymphocytes (%) (Auto) 16.6 10.0-50.0 % Monocytes (%) (Auto) 16.5 H 0.0-12.0 % Eosinophils (%) (Auto) 0.9 0.0-7.0 % Basophils (%) (Auto) 0.5 0.0-2.0 % Neutrophils # (Auto) 7.6 1.6-8.6 10 ^3/uL Lymphocytes # (Auto) 1.9 0.4-5.4 10 ^3/uL Monocytes # (Auto) 1.9 H 0-1.3 10 ^3/uL Eosinophils # (Auto) 0.1 0-0.8 10 ^3/uL Basophils # (Auto) 0.1 0-0.2 10 ^3/uL Nucleated Red Blood Cells 0.1 % Sodium Level 140 136-145 mmol/L Potassium Level 4.1 3.5-5.1 mmol/L Chloride Level 101 98-107 mmol/L Carbon Dioxide Level 28 20-31 mmol/L Anion Gap 11 5-15 Blood Urea Nitrogen 40 H 9-23 mg/dL Creatinine 2.39 H 0.700-1.30 mg/dL Glomerular Filtration Rate Calc 25 >90 mL/min BUN/Creatinine Ratio 16.7 10.0-20.0 Serum Glucose 122 H 74-106 mg/dL Calcium Level 9.0 8.7-10.4 mg/dL CHEST RADIOGRAPH FINDINGS: Lines and Tubes: None Lungs: There is a right basilar opacity. Pleura: No effusion. No pneumothorax. Cardiomediastinal contours: Unremarkable Bones: No acute osseous abnormality. IMPRESSION: 1. Right basilar opacity which may represent atelectasis or pneumonia. TECHNIQUE: Axial imaging was obtained through the brain without contrast. FINDINGS: There is no acute intracranial hemorrhage. No mass effect or midline shift. Focal area of hypoattenuation in the anterior right frontal lobe appears stable compared to the prior CT, likely encephalomalacia from prior infarct. Stable appearing encephalomalacia also seen in the left occipital lobe. Scattered areas of hypoattenuation are seen in the periventricular and subcortical white matter, which are nonspecific but most likely sequelae of small vessel ischemic disease. The ventricles and sulci are within normal limits in size for age. Basal cisterns are patent. The calvarium is unremarkable. Mild mucosal thickening of the paranasal sinuses. Mastoid air cells are clear. IMPRESSION: 1. No CT evidence of acute intracranial abnormality. 2. Nonacute findings as described above. EXAM: XY L FOOT 3 VIEW XRAY FINDINGS: No acute fracture or dislocation are identified about the left foot. Hallux valgus. There is an erosion in the medial 1st metatarsal head. Ulceration in the medial soft tissues of the foot. IMPRESSION: 1. Findings suspicious for osteomyelitis in the 1st metatarsal head adjacent to soft tissue ulceration. 2. Hallux valgus. SEPSIS Sepsis Screen Date sepsis recognized/suspect: Apr 15, 2025 Time Sepsis recognized/suspect: 511 Recent Procedure: No On Antibiotic Therapy: No Respiratory Rate >20: No Heart Rate >90: No Temp<36 C (96.8 F) or >38.3 C: No SBP <90 or MAP <65 mmHG: No New Acute Mental Status Change: No Is the patient on CPAP, BIPAP,: No Physician Orders Chest Portable (04/15/25 05:21) Head Without Contrast (04/15/25 05:21) Continuous Ekg Monitoring 08,12,16,20,00,04 (04/15/25 05:21) Electrocardigram (04/15/25 08:21) L Foot 3 View Xray (04/15/25 05:48) * Cardiology Consult (04/15/25 07:21) * Wound Consult (04/15/25 ) Wound Culture W/ Gs (04/15/25 12:01) Blood Culture (04/15/25 12:01) Admit (04/15/25 12:02) Code Status (04/15/25 12:02) Hydrocodone-Acet 5/325mg Tab ([place]el[place] 5/32 (04/15/25 12:15) Ondansetron Hcl (Zofran) (04/15/25 12:15) Docusate Sodium Capsule (Colace Capsule) (04/15/25 12:15) Fall Risk Precautions In Place QSHIFT (04/15/25 12:02) Complete Blood Count (04/16/25 04:00) Comprehensive Metabolic Panel (04/16/25 04:00) Cardiac Diet-2gna,Lofat,Lochol (04/15/25 Lunch) Pt Request For Service (04/15/25 12:02) Condition: Serious (04/15/25 12:02) Acetaminophen Tablet (Tylenol Tablet) (04/15/25 12:15) Nitroglycerin Sublingual (Ntrostat Subli (04/15/25 12:15) Morphine Sulfate Injection (04/15/25 12:15) Stat Ekg For Chest Pain (04/15/25 12:02) Notify Md Of Changes From Base (04/15/25 12:02) Sanitary Aide For 24 Hours (04/15/25 12:02) Emergency Dysrhythmia Protocol (04/15/25 12:02) Rhythm Strips Once Every Shift (04/15/25 12:02) Oxygen By Nasal Cannula (04/15/25 12:02) *Podiatry Consult Joan([facility]) (04/15/25 12:02) Ct L Foot Wo Contrast (04/15/25 12:02) Vital Signs Date Time Temp Pulse Resp B/P (MAP) Pulse Ox O2 Delivery O2 Flow Rate FiO2 04/15/25 10:00 68 13 162/64 (96) 98 04/15/25 08:02 67 13 98 Nasal Cannula* 2 28 04/15/25 08:00 97.1 67 13 154/64 (94) 98 97.1 04/15/25 07:17 68 04/15/25 06:24 98.8 66 15 154/64 (94) 96 98.8 04/15/25 05:28 70 04/15/25 05:12 98.8 73 18 149/70 94 98.8 Laboratory Tests Test 04/15/25 05:39 White Blood Count 11.6 10^3/uL (4.4-10.8) H Medications Medications Dose Ordered Sig/Luis F Route Start Time Stop Time Status Last Admin Dose Admin Enoxaparin Sodium 90 mg ONCE ONCE SC 04/15/25 07:30 04/15/25 07:31 DC 04/15/25 07:47 90 MG Piperacillin Sod/ Tazobactam Sod 100 ml @ 100 mls/hr ONCE ONCE IV 04/15/25 06:00 04/15/25 06:59 DC 04/15/25 09:46 100 MLS/HR Assessment/Plan Assessment/Plan Assessment: Diabetic foot ulcer, Elevated troponin, Possible osteomyelitis, Diabetes, Hypertension, Hyperlipidemia, Plan: Admit to Tele, Cardiology consult, Podiatry consult, IV antibiotics, IV hydration, ECHO, CT of left foot, Blood cultures, Wound cultures, Fall risk, Physical therapy evaluation, Home medications reconciled, Plan discussed with: Patient, Spouse My Orders Orders - SCHWING,KRUNAL R DINING ROOM SERVER Procedure Category Date Status Time * Wound Consult CONS 04/15/25 Transmitted Wound Culture W/ Gs JUNAID 04/15/25 Logged 12:01 Blood Culture JUNAID 04/15/25 Logged 12:01 Admit ADMIT 04/15/25 Transmitted 12:02 Code Status CODE 04/15/25 Transmitted 12:02 Hydrocodone-Acet PHA 04/15/25 Transmitted 5/325mg Tab (Celeste 12:15 Ondansetron Hcl PHA 04/15/25 Transmitted (Zofran) 12:15 Docusate Sodium PHA 04/15/25 Transmitted Capsule (Colace 12:15 Fall Risk Precautions CRISTAL 04/15/[address] 12:02 Complete Blood Count LAB 04/16/25 Verified 04:00 Comprehensive LAB 04/16/25 Verified Metabolic Panel 04:00 Cardiac DIET 04/15/25 Transmitted Diet-2gna,Lofat,Lochol Lunch Pt Request For Service PT 04/15/25 Transmitted 12:02 Condition: Serious CRISTAL 04/15/25 Transmitted 12:02 Acetaminophen Tablet PHA 04/15/25 Transmitted (Tylenol Tablet) 12:15 Nitroglycerin PHA 04/15/25 Transmitted Sublingual (Ntrostat 12:15 Morphine Sulfate PHA 04/15/25 Transmitted Injection 12:15 Stat Ekg For Chest CRISTAL 04/15/25 Transmitted Pain 12:02 Notify Md Of Changes CRISTAL 04/15/25 Transmitted From Base 12:02 Sanitary Aide For CRISTAL 04/15/25 Transmitted 24 Hours 12:02 Emergency Dysrhythmia CRISTAL 04/15/25 Transmitted Protocol 12:02 Rhythm Strips Once CRISTAL 04/15/25 Transmitted Every Shift 12:02 Oxygen By Nasal RT 04/15/25 Transmitted Cannula 12:02 *Podiatry Consult CONS 04/15/25 Transmitted Muss[facility]) 12:02 Ct L Foot Wo Contrast CT 04/15/25 Transmitted 12:02 Date of Service: Apr 15, 2025 Billing Provider: KRUNAL LINDER Common Visit Codes: [id number] INP/OBS CARE (HIGH) KRUNAL LINDER Apr 15, 2025 12:56
[2025-04-15 13:00] VITALS: PULSE 72; RESP 16; O2SAT 93
--- NOTE | 2025-04-15 13:21 | DVH ---
CLINICAL INDICATION: diabetic foot ulcer TECHNIQUE: Noncontrast CT of the left foot was performed. Sagittal and coronal reformatted images are provided. COMPARISON: XY L FOOT 3 VIEW XRAY on DOS: 04/15/25 CT Dose: CTDI volume is 7.75 mGy. Dose-length product is 2.13 mGy*cm FINDINGS: There are cortical erosions in the 1st metatarsal head. Soft tissue swelling and a soft tissue defec t/ ulceration noted in the medial forefoot adjacent to the 1st metatarsophalangeal joint. There are lucencies in the intermediate cuneiform and the lateral cuneiform, as well as the proximal 2nd and 3rd metatarsal bones. No acute fracture or dislocation. IMPRESSION: 1. Findings concerning for osteomyelitis in the 1st metatarsal head. 2. Periarticular lucencies in the intermediate cuneiform and the lateral cuneiform as well as proxima l aspect of the 2nd and 3rd metatarsal bones which may be degenerative in etiology rather than infect ious. MRI of the foot without and with intravenous contrast recommended for further evaluation. 3. Cellulitis and ulceration adjacent to the 1st MTP joint. All CT scans at this medical facility are performed using dose modulation techniques as appropriate t o a performed exam including the following: Automated exposure control was utilized; adjustment of th e MA and/or KV according to patient size; and use of iterative reconstruction technique.
--- NOTE | 2025-04-15 13:35 | DVH ---
Bilateral Lower Extremity Arterial Duplex Clinical History: Diabetic ulcer r/o PAD Comparison: US BILAT LOWER DVT on DOS: 11/03/22, US CAROTID DUPLX W COLOR DOP on DOS: 11/03/22 Technique: Duplex Doppler evaluation including color Doppler and spectral/pulsed waveform analysis of the lower extremity arteries was performed. Findings: RIGHT: Peak systolic velocities are less than 150 cm/sec The waveforms are monophasic in the dorsalis pedis. LEFT: Peak systolic velocities are less than 150 cm/sec The waveforms are biphasic. IMPRESSION: No hemodynamically significant stenosis based on peak systolic velocity criteria. Monophasic arterial waveforms in the right dorsalis pedis may represent underlying peripheral arteria l disease. REFERENCE VALUES, [facility]) vascular Imaging Lab Criteria: Peak systolic velocity rang es (in cm/sec) are as follows: <150 cm/s - <20 % stenosis 150-200 cm/s - 20-49% stenosis 200-300 cm/s - 50-75% stenosis >300 cm/s -> 75% stenosis
--- NOTE | 2025-04-15 14:14 | DVHINCON2 ---
Date Seen: Apr 15, 2025 Referring Physician MD Karen Reason for Consultation NSTEMI History of Present Illness This is a pleasant 89-year-old man who presented to the emergency room via EMS with a chief complaint of generalized weakness x3 days. The patient reports he stood up from his bed to use his walker when he is legs gave out causing a fall injury with posterior head trauma without loss of consciousness. Denies chest pain, palpitations, diaphoresis, dizziness, or syncopal events. He underwent multiple 12 lead electrocardiogram revealing a sinus rhythm with T-wave inversion to leads I-II without evidence of progression changes. Troponin levels peaked at 72 ng/L. Follows up in the outpatient setting with marine consultant Dr. Adria Patel. Significant medical history includes conges tive heart failure, heavily calcified mitral/aortic leaflets, hypertension, insulin-dependent diabetes mellitus, dyslipidemia, history of lower extremity DVT in 2022 with current Pradaxa therapy, history of CVA, and chronic kidney disease stage IIIB. Of note, the patient was recently prescribed amiodarone 200 mg q.d. for unknown diagnosis. Past Medical History Past medical history reviewed. No other significant than mentioned above. Past Surgical History Past surgical history reviewed. No other significant than mentioned above. Family History Family history reviewed. Social History Denies the use of illicit drugs, alcohol, or tobacco use. Allergies: Coded Allergies: NO KNOWN ALLERGIES (Unverified , 08/16/15) Home Meds Reported Medications Prednisone (Prednisone) 5 Mg Tab, TAB PO 11/03/22 Lisinopril (Lisinopril) 20 Mg Tab, 1 TAB PO BID 11/03/22 Atenolol (Atenolol) 50 Mg Tab, 1 TAB PO BID 11/03/22 Benzonatate (Benzonatate) 100 Mg Cap, 1 CAP PO TID 11/03/22 Doxycycline Monohydrate (Doxycycline Monohydrate) 100 Mg Tab, 1 TAB PO BID 11/03/22 Gabapentin (Gabapentin) 100 Mg Cap, CAP PO 11/03/22 Hydralazine Hcl (Hydralazine Hcl) 50 Mg Tab, 1 TAB PO TID 11/03/22 Furosemide (Furosemide) 40 Mg Tab, 1 TAB PO DAILY 11/03/22 Amlodipine Besylate (Amlodipine Besylate) 5 Mg Tab, 1 TAB PO DAILY 11/03/22 Home Meds Home medications reviewed. Current Medications Current Medications Medications (Trade) Dose Ordered Sig/Luis F Route PRN Reason Start Time Stop Time Status Last Admin Acetaminophen/ Hydrocodone Bitart ([place] 5/325MG Tab) 1 tab Q4HP PRN PO MODERATE PAIN (4-6 PAIN SCALE) 04/15/25 12:15 Ondansetron HCl (Zofran) 4 mg Q4HP PRN IV NAUSEA / VOMITING 04/15/25 12:15 Docusate Sodium (Colace Capsule) 100 mg BIDPRN PRN PO FOR CONSTIPATION 04/15/25 12:15 Acetaminophen (Tylenol Tablet) 650 mg Q6HP PRN PO PAIN SCALE 1-3 OR TEMP>100.4 04/15/25 12:15 Nitroglycerin (Ntrostat Sublingual) 0.4 mg Q5MINP PRN SL FOR CHEST PAIN 04/15/25 12:15 Morphine Sulfate 2 mg Q30M PRN IV FOR CHEST PAIN 04/15/25 12:15 Review of Systems Constitutional: Generalized weakness Ears, Nose, & Throat: No symptom reported Eyes: No symptom reported Neurological: No symptoms reported Pulmonary/Respiratory: No symptom reported Cardiovascular: No symptom reported Gastrointestinal: No symptom reported Genitourinary: No symptom reported Musculoskeletal: No symptom reported Skin: No symptom reported Psychiatric: No symptom reported Endocrine: No symptom reported Hemotologic/Lymphatic: No symptom reported Vital Signs Vital Signs Date Time Temp Pulse Resp B/P (MAP) Pulse Ox O2 Delivery O2 Flow Rate FiO2 04/15/25 10:00 68 13 162/64 (96) 98 04/15/25 08:02 Nasal Cannula* 2 28 04/15/25 08:00 97.1 97.1 Physical Exam General Appearance: Cooperative. Well developed. Well nourished. In no acute distress Head Exam: Normal inspection Neck Exam: Normal inspection. Non-tender. Normal alignment Pulmonary/Respiratory: Chest non-tender. Clear bilateral breath sounds Cardiovascular/Chest: Regular rate and rhythm. S1, S2. Sinus rhythm with T- wave inversion to lead I-II. No murmurs. No JVD. Peripheral Pulses: 2+ Radial (R). 2+ Radial (L). 2+ Pedal (R). 2+ Pedal (L) Abdominal Exam: Normal bowel sounds. Soft. Nontender. No hepatospenomegaly. No masses Ankle Exam: Negative ankle edema Lower extremities: Negative lower extremity edema Neuro/Mental Status: A&O x3. Coherent Thoughts/Psych: Normal thought pattern. Appropriate mood and affect. Good judgement and insight Appearance: In no acute distress Skin Exam: Normal inspection. Normal color. Warm. Dry Labs/Diagnostic Data Labs Test 04/15/25 09:21 04/15/25 05:39 Range/Units Troponin I High Sensitivity 69 *H </=54 ng/L White Blood Count 11.6 H 4.4-10.8 10^3/uL Red Blood Count 4.59 4.5-5.90 10^6/uL Hemoglobin 14.3 13.5-17.5 g/dL Hematocrit 41.8 41.0-53.0 % Mean Corpuscular Volume 91.1 80.0-100.0 fL Mean Corpuscular Hemoglobin 31.2 28.0-32.0 pg Mean Corpuscular Hemoglobin Concent 34.2 32.0-36.0 g/dL Red Cell Distribution Width 14.3 11.8-14.3 % Platelet Count 152 140-450 10^3/uL Mean Platelet Volume 8.6 6.9-10.8 fL Neutrophils (%) (Auto) 65.5 37.0-80.0 % Lymphocytes (%) (Auto) 16.6 10.0-50.0 % Monocytes (%) (Auto) 16.5 H 0.0-12.0 % Eosinophils (%) (Auto) 0.9 0.0-7.0 % Basophils (%) (Auto) 0.5 0.0-2.0 % Neutrophils # (Auto) 7.6 1.6-8.6 10 ^3/uL Lymphocytes # (Auto) 1.9 0.4-5.4 10 ^3/uL Monocytes # (Auto) 1.9 H 0-1.3 10 ^3/uL Eosinophils # (Auto) 0.1 0-0.8 10 ^3/uL Basophils # (Auto) 0.1 0-0.2 10 ^3/uL Nucleated Red Blood Cells 0.1 % Sodium Level 140 136-145 mmol/L Potassium Level 4.1 3.5-5.1 mmol/L Chloride Level 101 98-107 mmol/L Carbon Dioxide Level 28 20-31 mmol/L Anion Gap 11 5-15 Blood Urea Nitrogen 40 H 9-23 mg/dL Creatinine 2.39 H 0.700-1.30 mg/dL Glomerular Filtration Rate Calc 25 >90 mL/min BUN/Creatinine Ratio 16.7 10.0-20.0 Serum Glucose 122 H 74-106 mg/dL Calcium Level 9.0 8.7-10.4 mg/dL Assessment Sepsis with 1st metatarsal diabetic ulcer Possible pneumonia, ?UTI NSTEMI likely type 2 secondary to above Chronic compensated HFpEF Antiarrhythmic use (amiodarone) Heavily calcified aortic/mitral leaflets Insulin-dependent diabetes mellitus Hypertension Dyslipidemia CKD stage IIIb Hx of DVT (on Pradaxa) Hx of CVA Plan/Recommendation (Dr. Newsome) Likely NSTEMI type II secondary to sepsis. Obtain a transthoracic echocardiogram to evaluate mitral and aortic valve calcifications. Reestablish home amiodarone therapy for unknown diagnosis. Initiate blood pressure control with BB. Initiate DVT/VTE prophylaxis given history of DVT with Pradaxa therapy. Initiate broad spectrum abx given sepsis with possible osteomyelitis. Further orders per clinical course. Thank you for allowing us to participate in this patient's care. Please call if you have any questions or concerns. This medical document was created using an electronic medical record system with voice recognition software and computerized dictation system. Although this document has been carefully reviewed, there might still be some phonetic and typographical errors. Occasional wrong-word or ``sound-alike substitutions may have occurred due to the inherent limitations of voice recognition software. These areas are purely typographical due to imperfections of the software p rograms and do not reflect any compromise in the patient's medical care. Please read the chart carefully and recognize, using context, where these substitutions have occurred. Plan discussed with: Patient, Spouse, Other NYHA Physical activity limitations: NA Date of Service: Apr 15, 2025 Billing Provider: FEROZ LOVELL Cardiology Common Codes: [id number] INP/OBS CARE (High) FEROZ LOVELL Apr 15, 2025 14:14
[2025-04-15] MEDS: METOPROLOL SUCCINATE XL 50 MG TAB PO ONE (15:18)
[2025-04-15] MEDS ORDERED: DABI75CA PO (17:20)
[2025-04-15] MEDS ORDERED: AMIO200T13 PO (17:20)
[2025-04-15] MEDS ORDERED: ATOR20TA50 PO (17:20)
[2025-04-15] MEDS: AMIODARONE HCL 200 MG TAB PO SCH (18:10)
[2025-04-15 20:04] VITALS: PULSE 64; RESP 16; O2SAT 90
[2025-04-15] MEDS ORDERED: AMIODARONE HCL 200 MG TAB PO SCH (22:00)
[2025-04-15] MEDS: CLINDAMYCIN 600MG IV 50 ML IV SCH (22:11)
[2025-04-15] MEDS: ATORVASTATIN 20 MG TAB PO SCH (22:11)
[2025-04-15] MEDS: DABIGATRAN 75 MG CAP PO SCH (22:48)
--- NOTE | 2025-04-15 23:04 | DVHINCON2 ---
Date Seen: Apr 15, 2025 Referring Physician MD Karen Reason for Consultation NSTEMI History of Present Illness This is a pleasant 89-year-old male with a PMH of congestive heart failure, heavily calcified mitral/aortic leaflets, hypertension, insulin-dependent diabetes mellitus, dyslipidemia, history of lower extremity DVT in 2022 with current Pradaxa therapy, history of CVA, and chronic kidney disease stage IIIB. Of note, the patient was recently prescribed amiodarone 200 mg q.d. for unknown diagnosis who who presented to the emergency room via EMS with a chief complaint of generalized weakness x3 days. The patient reports he stood up from his bed to use his walker when he is legs gave out causing a fall injury with posterior head trauma without loss of consciousness. Denies chest pain, palpitations, diaphoresis, dizziness, or syncopal events. He underwent multiple 12 lead electrocardiogram revealing a sinus rhythm with T-wave inversion to leads I-II without evidence of progression changes. Troponin levels peaked at 72 ng/L. Follows up in the outpatient setting with legal writing professor Dr. Adria Patel. Patient was admitted to the hospital. I am asked to consult on this patient. Past Medical History Past medical history reviewed. No other significant than mentioned above. Past Surgical History Past surgical history reviewed. No other significant than mentioned above. Allergies: Coded Allergies: NO KNOWN ALLERGIES (Unverified , 08/16/15) Home Meds Reported Medications Dabigatran Etexilate Mesylate (Dabigatran Etexilate) 75 Mg Cap, 1 CAP PO BID 04/15/25 Atorvastatin Calcium (ATORVASTATIN CALCIUM) 20 Mg Tab, 1 TAB PO HS 04/15/25 Amiodarone HCl (Amiodarone HCl) 200 Mg Tab, 1 TAB PO DAILY 04/15/25 Prednisone (Prednisone) 5 Mg Tab, TAB PO 11/03/22 Lisinopril (Lisinopril) 20 Mg Tab, 1 TAB PO BID 11/03/22 Atenolol (Atenolol) 50 Mg Tab, 1 TAB PO BID 11/03/22 Doxycycline Monohydrate (Doxycycline Monohydrate) 100 Mg Tab, 1 TAB PO BID 11/03/22 Gabapentin (Gabapentin) 100 Mg Cap, CAP PO 11/03/22 Hydralazine Hcl (Hydralazine Hcl) 50 Mg Tab, 1 TAB PO TID 11/03/22 Furosemide (Furosemide) 40 Mg Tab, 1 TAB PO DAILY 11/03/22 Amlodipine Besylate (Amlodipine Besylate) 5 Mg Tab, 1 TAB PO DAILY 11/03/22 Discontinued Reported Medications Benzonatate (Benzonatate) 100 Mg Cap, 1 CAP PO TID 11/03/22 Current Medications Current Medications Medications (Trade) Dose Ordered Sig/Luis F Route PRN Reason Start Time Stop Time Status Last Admin Acetaminophen/ Hydrocodone Bitart ([place] 5/325MG Tab) 1 tab Q4HP PRN PO MODERATE PAIN (4-6 PAIN SCALE) 04/15/25 12:15 Ondansetron HCl (Zofran) 4 mg Q4HP PRN IV NAUSEA / VOMITING 04/15/25 12:15 Docusate Sodium (Colace Capsule) 100 mg BIDPRN PRN PO FOR CONSTIPATION 04/15/25 12:15 Acetaminophen (Tylenol Tablet) 650 mg Q6HP PRN PO PAIN SCALE 1-3 OR TEMP>100.4 04/15/25 12:15 Nitroglycerin (Ntrostat Sublingual) 0.4 mg Q5MINP PRN SL FOR CHEST PAIN 04/15/25 12:15 Morphine Sulfate 2 mg Q30M PRN IV FOR CHEST PAIN 04/15/25 12:15 Amiodarone HCl (Cordarone Tablet) 200 mg Q12HR PO 04/15/25 22:00 04/15/25 17:34 DC Enoxaparin Sodium (Lovenox) 30 mg DAILY SC 04/16/25 10:00 04/15/25 17:35 DC Ceftriaxone Sodium 50 ml @ 100 mls/hr DAILY@09 IV 04/16/25 09:00 Metoprolol Succinate (Toprol Xl) 50 mg DAILY PO 04/16/25 10:00 Hydralazine HCl (Apresoline Injection) 10 mg Q6HP PRN IV SBP>150 04/15/25 14:00 Furosemide (Lasix Tablet) 40 mg DAILY PO 04/16/25 10:00 Hydralazine HCl (Apresoline Tablet) 50 mg TID PO 04/15/25 22:00 04/15/25 22:11 Amiodarone HCl (Cordarone Tablet) 200 mg DAILY PO 04/15/25 17:35 04/15/25 18:10 Atorvastatin Calcium (Lipitor) 20 mg HS PO 04/15/25 22:00 04/15/25 22:11 Dabigatran (Pradaxa Capsule) 75 mg BID PO 04/15/25 22:00 04/15/25 22:48 Clindamycin Phosphate 50 ml @ 50 mls/hr Q8HR IV 04/15/25 22:00 04/15/25 22:11 Review of Systems Constitutional: Generalized weakness Ears, Nose, & Throat: No symptom reported Eyes: No symptom reported Neurological: No symptoms reported Pulmonary/Respiratory: No symptom reported Cardiovascular: No symptom reported Gastrointestinal: No symptom reported Genitourinary: No symptom reported Musculoskeletal: No symptom reported Skin: No symptom reported Psychiatric: No symptom reported Endocrine: No symptom reported Hemotologic/Lymphatic: No symptom reported Vital Signs Vital Signs Date Time Temp Pulse Resp B/P (MAP) Pulse Ox O2 Delivery O2 Flow Rate FiO2 04/15/25 22:11 158/62 04/15/25 22:00 59 16 98 04/15/25 20:04 Nasal Cannula* 2 28 04/15/25 08:00 97.1 97.1 Physical Exam GENERAL: Alert and oriented x 3. No acute distress. EYES: PERRL, EOMI. Anicteric. HENT: Moist mucous membranes. LUNGS: Clear to auscultation bilaterally. CARDIOVASCULAR: Regular rate and rhythm. ABDOMEN: Soft, non-tender and non-distended. EXTREMITIES: No edema. NEUROLOGIC: No focal neurological deficits. SKIN: Warm, dry. Labs/Diagnostic Data Labs Test 04/15/25 09:21 04/15/25 05:39 Range/Units Troponin I High Sensitivity 69 *H </=54 ng/L White Blood Count 11.6 H 4.4-10.8 10^3/uL Red Blood Count 4.59 4.5-5.90 10^6/uL Hemoglobin 14.3 13.5-17.5 g/dL Hematocrit 41.8 41.0-53.0 % Mean Corpuscular Volume 91.1 80.0-100.0 fL Mean Corpuscular Hemoglobin 31.2 28.0-32.0 pg Mean Corpuscular Hemoglobin Concent 34.2 32.0-36.0 g/dL Red Cell Distribution Width 14.3 11.8-14.3 % Platelet Count 152 140-450 10^3/uL Mean Platelet Volume 8.6 6.9-10.8 fL Neutrophils (%) (Auto) 65.5 37.0-80.0 % Lymphocytes (%) (Auto) 16.6 10.0-50.0 % Monocytes (%) (Auto) 16.5 H 0.0-12.0 % Eosinophils (%) (Auto) 0.9 0.0-7.0 % Basophils (%) (Auto) 0.5 0.0-2.0 % Neutrophils # (Auto) 7.6 1.6-8.6 10 ^3/uL Lymphocytes # (Auto) 1.9 0.4-5.4 10 ^3/uL Monocytes # (Auto) 1.9 H 0-1.3 10 ^3/uL Eosinophils # (Auto) 0.1 0-0.8 10 ^3/uL Basophils # (Auto) 0.1 0-0.2 10 ^3/uL Nucleated Red Blood Cells 0.1 % Sodium Level 140 136-145 mmol/L Potassium Level 4.1 3.5-5.1 mmol/L Chloride Level 101 98-107 mmol/L Carbon Dioxide Level 28 20-31 mmol/L Anion Gap 11 5-15 Blood Urea Nitrogen 40 H 9-23 mg/dL Creatinine 2.39 H 0.700-1.30 mg/dL Glomerular Filtration Rate Calc 25 >90 mL/min BUN/Creatinine Ratio 16.7 10.0-20.0 Serum Glucose 122 H 74-106 mg/dL Calcium Level 9.0 8.7-10.4 mg/dL Assessment Sepsis with 1st metatarsal diabetic ulcer. Possible pneumonia, ?UTI. NSTEMI likely type 2 secondary to above. Chronic compensated HFpEF. Antiarrhythmic use (amiodarone). Heavily calcified aortic/mitral leaflets. Insulin-dependent diabetes mellitus. Hypertension. Dyslipidemia. CKD stage IIIb. History of DVT (on Pradaxa). History of CVA. Plan/Recommendation I agree with your ongoing assessment and care of plan. Patient has been seen by Angela Calhoun NP on my behalf. We have discussed the plan with the patient. Likely NSTEMI type II secondary to sepsis. Obtain a transthoracic echocardiogram to evaluate mitral and aortic valve calcifications. Reestablish home amiodarone therapy for unknown diagnosis. Initiate blood pressure control with BB. Initiate DVT/VTE prophylaxis given history of DVT with Pradaxa therapy. Initiate broad spectrum abx given sepsis with possible osteomyelitis. Additional plan as per the hospital course. Plan discussed with: Patient NYHA Physical activity limitations: NA Date of Service: Apr 15, 2025 Billing Provider: JOSEPHINE QUEEN MD Cardiology Common Codes: [id number] INP/OBS CARE (High) Cardiology Consultation Codes: [id number] CONSULT <45MIN JOSEPHINE QUEEN MD Apr 15, 2025 23:03
[2025-04-16] VITALS (9 sets, daily range): BP systolic 125–168; BP diastolic 52–86; PULSE 54–61; RESP 17–18; TEMP 97.5–98.7; O2SAT 93–97
[2025-04-16] MEDS: hydrALAZINE HCL 20 MG/ML VL IV PRN (01:56)
[2025-04-16 07:28] LABS: Hematocrit 40.3 % (41.0-53.0); Hemoglobin 14.1 g/dL (13.5-17.5); Mean Corpuscular Hemoglobin 31.6 pg (28.0-32.0); Mean Corpuscular Volume 90.5 fL (80.0-100.0); Nucleated Red Blood Cells % 0.1 %
[2025-04-16 07:43] LABS: Alanine Aminotransferase 40 U/L (7-40); Albumin 3.5 g/dL (3.2-4.8); Alkaline Phosphatase 55 U/L (46-116); Anion Gap 7 (5-15); BUN/Creatinine Ratio 16.1 (10.0-20.0); Bilirubin, Total 0.8 mg/dL (0.2-1.0); Blood Urea Nitrogen 32 mg/dL (9-23); Calcium 8.9 mg/dL (8.7-10.4); Carbon Dioxide 27 mmol/L (20-31); Chloride 104 mmol/L (98-107); Glucose 176 mg/dL (74-106); Potassium 4.2 mmol/L (3.5-5.1); Sodium 138 mmol/L (136-145); Total Protein 6.3 g/dL (5.7-8.2)
[2025-04-16] MEDS: cefTRIAXone 1GM/50ML D5W 50 ML IV SCH (08:34)
[2025-04-16] MEDS: FUROSEMIDE 40 MG TAB PO SCH (08:35)
[2025-04-16] MEDS: METOPROLOL SUCCINATE XL 50 MG TAB PO SCH (08:38)
[2025-04-16] MEDS ORDERED: INSREG3 IV (08:43)
[2025-04-16] MEDS ORDERED: INSUINJ2 SC (08:43)
[2025-04-16] MEDS ORDERED: ASPI81CH59 PO (08:43)
[2025-04-16] MEDS ORDERED: COEN400C8 PO (08:44)
[2025-04-16] MEDS ORDERED: ENOXAPARIN SOD 30 MG/0.3 ML SYRINGE SC SCH (10:00)
--- NOTE | 2025-04-16 12:11 | DVHSR ---
APPROVED REPORT EXAM: Two-dimensional and M-mode echocardiogram with Doppler and color Doppler. Blood Pressure: 128/52 mmHg INDICATION elevated trop BRIEF HISTORY Congestive Heart Failure RISK FACTORS Height: 6'0, Weight: 218 DIMENSIONS LVDd4.9 (3.8-5.7cm)LA (2D)5.5 (1.9-4.0cm)Aortic Root4.4 (2.0-3.7cm) LVDs3.3 (2.5-4.0cm)LA (MM) (1.9-4.0cm)Aortic Cusp Exc2.3 (1.5-2.0cm) EF (%) 60.0 (55-70%)Rt. Atrium4.8 (1.9-4.0cm)Asc. Aorta cm IVSd1.5 (0.7-1.1cm)RV (D)5.2 (1.8-2.4cm) PWd1.0 (0.7-1.1cm) Mitral Valve MitralMitral Stenosis E wave0.70m/sMV Mean GR.2mmHg A wave1.21m/sMV Peak GR.7mmHg E/A ratio0.62D MVAcm2 DECEL [id number] 1/2 [id number] IVRTmsDop MVA2.51cm2 Aortic Valve Aortic ValveAortic Stenosis V11.31m/Dion Mean GR.mmHg V21.23m/Dion Peak GR.6mmHg LVOT Diameter2.3 (1.8-2.4cm)Doppler AVA4.42cm2 Pulmonic Valve V21.08m/s Other Information Technically limited study due to patient position.body habitus. Conclusion lvef 60% severe LVH cannot exclude mild LVOT gradient RV enlargdd , normal function left atrium enlarged mild moderate MAC mild mitral stenosis mean gradient of 2 mmhg
--- NOTE | 2025-04-16 13:07 | DVHCONRES ---
Date Seen: Apr 16, 2025 Reason for Consultation Left foot wound History of Present Illness Vinny Erickson is an 89-year-old male with past medical history of diabetes, CHF, hypertension, CVA, hyperlipidemia, and chronic kidney disease, who came to the hospital for generalized weakness. This morning the patient was walking to the bathroom with his walker when he lost his strength and fell and hit his head. His called EMS to help get him up. When they arrived his blood pressure was SBP in the 70's and he was too weak to get up to the gurney and they had to help. him. Patient and state he has been progressively getting weaker over the last week. He has had a diabetic foot ulcer for about 1 year. He has home health that comes 3/week to change his dressings. He states this last week the home health nurse told him the wound was looking worse and to go to podiatry. He went to Podiatry on Tuesday, the wound was debrided and he was told he was going to need to follow up down in [place] due to the severity of the wound. While in ER troponin was mildly elevated, ER consulted cardiology. Past Medical History See H&P Past Surgical History See H&P Family History: Colon cancer Diabetes mellitus G8 FATHER Grandpa Allergies: Coded Allergies: NO KNOWN ALLERGIES (Unverified , 08/16/15) Home Meds Reported Medications Coenzyme Q10 (Ubidecarenone) (COQ-10) 400 Mg Cap, PO DAILY, CAP 04/16/25 Aspirin (Aspirin Low Dose) 81 Mg Chw, 1 TAB PO DAILY, #30 TAB 3 Refills 04/16/25 Insulin Regular (Human) (Humulin R) 100 Unit/Ml Inj, 5 UNIT IV BID, INJ 04/16/25 Insulin NPH (Human) (Isophane) (Humulin N) 100 Unit/Ml Inj, 25 UNIT SC BID, INJ 04/16/25 Dabigatran Etexilate Mesylate (Dabigatran Etexilate) 75 Mg Cap, 1 CAP PO BID 04/15/25 Atorvastatin Calcium (ATORVASTATIN CALCIUM) 20 Mg Tab, 1 TAB PO HS 04/15/25 Amiodarone HCl (Amiodarone HCl) 200 Mg Tab, 1 TAB PO DAILY 04/15/25 Prednisone (Prednisone) 5 Mg Tab, TAB PO 11/03/22 Lisinopril (Lisinopril) 20 Mg Tab, 1 TAB PO BID 11/03/22 Atenolol (Atenolol) 50 Mg Tab, 1 TAB PO BID 11/03/22 Doxycycline Monohydrate (Doxycycline Monohydrate) 100 Mg Tab, 1 TAB PO BID 11/03/22 Gabapentin (Gabapentin) 100 Mg Cap, CAP PO 11/03/22 Hydralazine Hcl (Hydralazine Hcl) 50 Mg Tab, 1 TAB PO TID 11/03/22 Furosemide (Furosemide) 40 Mg Tab, 1 TAB PO DAILY 11/03/22 Amlodipine Besylate (Amlodipine Besylate) 5 Mg Tab, 1 TAB PO DAILY 11/03/22 Discontinued Reported Medications Benzonatate (Benzonatate) 100 Mg Cap, 1 CAP PO TID 11/03/22 Current Medications Current Medications Medications (Trade) Dose Ordered Sig/Luis F Route PRN Reason Start Time Stop Time Status Last Admin Amiodarone HCl (Cordarone Tablet) 200 mg Q12HR PO 04/15/25 22:00 04/15/25 17:34 DC Enoxaparin Sodium (Lovenox) 30 mg DAILY SC 04/16/25 10:00 04/15/25 17:35 DC Ceftriaxone Sodium 50 ml @ 100 mls/hr DAILY@09 IV 04/16/25 09:00 04/16/25 08:34 Metoprolol Succinate (Toprol Xl) 50 mg DAILY PO 04/16/25 10:00 Hydralazine HCl (Apresoline Injection) 10 mg Q6HP PRN IV SBP>150 04/15/25 14:00 04/16/25 01:56 Furosemide (Lasix Tablet) 40 mg DAILY PO 04/16/25 10:00 04/16/25 08:35 Hydralazine HCl (Apresoline Tablet) 50 mg TID PO 04/15/25 22:00 04/16/25 05:44 Amiodarone HCl (Cordarone Tablet) 200 mg DAILY PO 04/15/25 17:35 04/15/25 18:10 Atorvastatin Calcium (Lipitor) 20 mg HS PO 04/15/25 22:00 04/15/25 22:11 Dabigatran (Pradaxa Capsule) 75 mg BID PO 04/15/25 22:00 04/16/25 08:34 Clindamycin Phosphate 50 ml @ 50 mls/hr Q8HR IV 04/15/25 22:00 04/16/25 05:41 Vital Signs Vital Signs Date Time Temp Pulse Resp B/P (MAP) Pulse Ox O2 Delivery O2 Flow Rate FiO2 04/16/25 09:00 97.7 58 17 137/65 (89) 97 97.7 04/16/25 08:00 Nasal Cannula* 2 28 Physical Exam Dermatological: Skin is dry with mild erythema and some maceration around the wound site No gross deformities noted Mild non-pitting edema present bilaterally Left hallux medial wound with bone exposed Vascular: Dorsalis pedis and posterior tibial pulses are 1+ bilaterally Capillary refill is under 2 seconds Skin temperature is warm bilaterally Neurologic: Protective sensation is absent on the plantar forefoot bilaterally Monofilament testing reveals decreased sensation in multiple plantar sites Musculoskeletal: Range of motion at the ankle and MTP joints is within normal limits. Strength is 5/5 in all tested muscle groups. Gait is antalgic due to offloading of the affected limb. Labs/Diagnostic Data Labs Test 04/16/25 09:08 04/16/25 06:36 04/15/25 09:21 Range/Units POC Glucose 230 H 70-106 mg/dl White Blood Count 10.8 4.4-10.8 10^3/uL Red Blood Count 4.45 L 4.5-5.90 10^6/uL Hemoglobin 14.1 13.5-17.5 g/dL Hematocrit 40.3 L 41.0-53.0 % Mean Corpuscular Volume 90.5 80.0-100.0 fL Mean Corpuscular Hemoglobin 31.6 28.0-32.0 pg Mean Corpuscular Hemoglobin Concent 34.9 32.0-36.0 g/dL Red Cell Distribution Width 14.2 11.8-14.3 % Platelet Count 153 140-450 10^3/uL Mean Platelet Volume 8.9 6.9-10.8 fL Neutrophils (%) (Auto) 59.7 37.0-80.0 % Lymphocytes (%) (Auto) 20.0 10.0-50.0 % Monocytes (%) (Auto) 17.2 H 0.0-12.0 % Eosinophils (%) (Auto) 2.5 0.0-7.0 % Basophils (%) (Auto) 0.6 0.0-2.0 % Neutrophils # (Auto) 6.5 1.6-8.6 10 ^3/uL Lymphocytes # (Auto) 2.2 0.4-5.4 10 ^3/uL Monocytes # (Auto) 1.9 H 0-1.3 10 ^3/uL Eosinophils # (Auto) 0.3 0-0.8 10 ^3/uL Basophils # (Auto) 0.1 0-0.2 10 ^3/uL Nucleated Red Blood Cells 0.1 % Sodium Level 138 136-145 mmol/L Potassium Level 4.2 3.5-5.1 mmol/L Chloride Level 104 98-107 mmol/L Carbon Dioxide Level 27 20-31 mmol/L Anion Gap 7 5-15 Blood Urea Nitrogen 32 H 9-23 mg/dL Creatinine 1.99 H 0.700-1.30 mg/dL Glomerular Filtration Rate Calc 32 >90 mL/min BUN/Creatinine Ratio 16.1 10.0-20.0 Serum Glucose 176 H 74-106 mg/dL Hemoglobin A1c 7.0 H <5.7 % A1C Calcium Level 8.9 8.7-10.4 mg/dL Total Bilirubin 0.8 0.2-1.0 mg/dL Aspartate Amino Transferase (AST) 40 13-40 U/L Alanine Aminotransferase (ALT) 40 7-40 U/L Alkaline Phosphatase 55 46-116 U/L Total Protein 6.3 5.7-8.2 g/dL Albumin 3.5 3.2-4.8 g/dL Troponin I High Sensitivity 69 *H </=54 ng/L Problems(with codes): (1) Hypertension (2) Medication refill (3) Mild dehydration (4) Hypertensive crisis (5) Acute on chronic diastolic heart failure (6) Hyperkalemia (7) Acute renal failure (8) Hypoxemia (9) Pulmonary edema (10) Pneumonia (11) Near syncope (12) Symptomatic bradycardia (13) Acute DVT (deep venous thrombosis) (14) Cholelithiasis (15) Colitis (16) Leukocytosis (17) Dehydration (18) Diarrhea (19) Hyperglycemia (20) CKD (chronic kidney disease) (21) Acute stroke due to ischemia (22) Falling (23) Generalized weakness (24) Diabetic foot ulcer (25) Closed head injury (26) Demand ischemia (27) NSTEMI (non-ST elevated myocardial infarction) Plan/Recommendation ASSESSMENT: Patient is a 89 year old seen on the floor for a worsening ulcer PLAN: - The patients chart was reviewed, clinical findings were discussed with the patient, the etiologies of the conditions were discussed in detail, and a treatment plan was agreed to at this time, with both oral and written instructions provided. - reviewed advanced imaging - can we get an MRI and CTs not helpful in determining extent of osteomyelitis - concern for osteomyelitis based off wound being open for the past year - MRI without contrast - we will review results and follow up - possibly treat with 6 weeks IV antibiotics versus local debridement All questions were answered and concerns addressed to the patient's satisfaction. The patient was given the phone number to the clinic and was told how to make contact with the clinic should any concerns or questions arise. Patient understands that if any questions or concerns arise prior to the next appointment, we should be contacted immediately. FOLLOW-UP: Continue to follow while inpatient Plan discussed with: Patient Visit Coding Podiatry Date of Service if different f: Apr 16, 2025 Billing Provider: AEN PHILLIPS DPM Podiatry Common Visit Codes: CONSULT ONLY Podiatry Consult Codes: 31959-KT/OBS CONSLTJ NEW/EST HI 80 EAN PHILLIPS DPM Apr 16, 2025 13:07
--- NOTE | 2025-04-16 13:49 | DVHPN2 ---
Consult Progress Note Date Seen: Apr 16, 2025 Subjective Review of Systems: CVS:Normal, RESPIRATORY:Normal, NEURO:Normal Objective vital signs Vital Sign Date Time Temp Pulse Resp B/P (MAP) Pulse Ox O2 Delivery O2 Flow Rate FiO2 04/16/25 13:30 97.8 60 18 127/52 (77) 93 97.8 04/16/25 08:00 Nasal Cannula* 2 28 Total Intake and Output 04/15/25 04/15/25 04/16/25 15:00 23:00 07:00 Intake Total 100 ml 100 ml Balance 100 ml 100 ml medications Current Medications Medications Dose Ordered Sig/Luis F Route Start Time Stop Time Status Last Admin Dose Admin Acetaminophen/ Hydrocodone Bitart 1 tab Q4HP PRN PO 04/15/25 12:15 Ondansetron HCl 4 mg Q4HP PRN IV 04/15/25 12:15 Docusate Sodium 100 mg BIDPRN PRN PO 04/15/25 12:15 Acetaminophen 650 mg Q6HP PRN PO 04/15/25 12:15 Nitroglycerin 0.4 mg Q5MINP PRN SL 04/15/25 12:15 Morphine Sulfate 2 mg Q30M PRN IV 04/15/25 12:15 Ceftriaxone Sodium 50 ml @ 100 mls/hr DAILY@09 IV 04/16/25 09:00 04/16/25 08:34 100 MLS/HR Metoprolol Succinate 50 mg DAILY PO 04/16/25 10:00 Hydralazine HCl 10 mg Q6HP PRN IV 04/15/25 14:00 04/16/25 01:56 10 MG Furosemide 40 mg DAILY PO 04/16/25 10:00 04/16/25 08:35 40 MG Hydralazine HCl 50 mg TID PO 04/15/25 22:00 04/16/25 13:30 50 MG Amiodarone HCl 200 mg DAILY PO 04/15/25 17:35 04/15/25 18:10 200 MG Atorvastatin Calcium 20 mg HS PO 04/15/25 22:00 04/15/25 22:11 20 MG Dabigatran 75 mg BID PO 04/15/25 22:00 04/16/25 08:34 75 MG Clindamycin Phosphate 50 ml @ 50 mls/hr Q8HR IV 04/15/25 22:00 04/16/25 13:31 50 MLS/HR Examination: LUNGS:Normal, CVS:Normal, NEURO:Normal laboratory and microbiology Laboratory Tests 04/16/25 06:36 Test 04/16/25 06:36 Range/Units Serum Glucose 176 H 74-106 mg/dL Problem List/Assessment/Plan Problem List/Assessment/Plan Sepsis with 1st metatarsal diabetic ulcer Possible pneumonia, ?UTI NSTEMI likely type 2 secondary to above Chronic compensated HFpEF Antiarrhythmic use (amiodarone) Insulin-dependent diabetes mellitus Hypertension Dyslipidemia CKD stage IIIb Hx of DVT (on Pradaxa) Hx of CVA Plan/Recommendation (Dr. Newsome) Likely NSTEMI type II secondary to sepsis. Transthoracic echocardiogram revealed LVEF 60% with moderate MAC and mild mitral stenosis. Continue home amiodarone therapy for unknown diagnosis. Continue blood pressure control with BB. Placed on Pradaxa therapy per hospitalist, consider transition to Lovenox SC if surgical interventions needed. There is no further cardiac work-up indicated at this time. Kindly call with any questions or concerns. Thank you for allowing us to participate in this patient's care. This medical document was created using an electronic medical record system with voice recognition software and computerized dictation system. Although this document has been carefully reviewed, there might still be some phonetic and typographical errors. Occasional wrong-word or ``sound-alike substitutions may have occurred due to the inherent limitations of voice recognition software. These areas are purely typographical due to imperfections of the software programs and do not reflect any compromise in the patient's medical care. Please read the chart carefully and recognize, using context, where these substitutions have occurred. Plan discussed with: Patient, Other Dietary Evaluation Review Comments: Nutrition Recommendation 1) Shade 1 pk BID 2) CCHO 75 gm + cardiac diet 3) Monitor PO intake, lab values, weight trend, and I/O Expected Outcomes/Goals: To meet >75% estimated needs Wound to improve Fu 3-5 days Date of Service: Apr 16, 2025 Billing Provider: FEROZ LOVELL Cardiology Common Codes: [id number] INP/OBS CARE(Mod) FEROZ LOVELL Apr 16, 2025 13:49
--- NOTE | 2025-04-16 13:58 | DVHPN2 ---
Progress Note Date Seen: Apr 16, 2025 Medical Necessity Reason Pt with a Central, PICC or Fol: No Subjective Patient reports: No new complaints Review of Systems: HEENT:Normal, CVS:Normal, RESPIRATORY:Normal, GI:Normal, :Normal, MSK:Normal, NEURO:Normal Objective vital signs Vital Sign Date Time Temp Pulse Resp B/P (MAP) Pulse Ox O2 Delivery O2 Flow Rate FiO2 04/16/25 13:30 97.8 60 18 127/52 (77) 93 97.8 04/16/25 08:00 Nasal Cannula* 2 28 Total Intake and Output 04/15/25 04/15/25 04/16/25 15:00 23:00 07:00 Intake Total 100 ml 100 ml Balance 100 ml 100 ml medications Current Medications Medications Dose Ordered Sig/Luis F Route Start Time Stop Time Status Last Admin Dose Admin Acetaminophen/ Hydrocodone Bitart 1 tab Q4HP PRN PO 04/15/25 12:15 Ondansetron HCl 4 mg Q4HP PRN IV 04/15/25 12:15 Docusate Sodium 100 mg BIDPRN PRN PO 04/15/25 12:15 Acetaminophen 650 mg Q6HP PRN PO 04/15/25 12:15 Nitroglycerin 0.4 mg Q5MINP PRN SL 04/15/25 12:15 Morphine Sulfate 2 mg Q30M PRN IV 04/15/25 12:15 Ceftriaxone Sodium 50 ml @ 100 mls/hr DAILY@09 IV 04/16/25 09:00 04/16/25 08:34 100 MLS/HR Metoprolol Succinate 50 mg DAILY PO 04/16/25 10:00 Hydralazine HCl 10 mg Q6HP PRN IV 04/15/25 14:00 04/16/25 01:56 10 MG Furosemide 40 mg DAILY PO 04/16/25 10:00 04/16/25 08:35 40 MG Hydralazine HCl 50 mg TID PO 04/15/25 22:00 04/16/25 13:30 50 MG Amiodarone HCl 200 mg DAILY PO 04/15/25 17:35 04/15/25 18:10 200 MG Atorvastatin Calcium 20 mg HS PO 04/15/25 22:00 04/15/25 22:11 20 MG Dabigatran 75 mg BID PO 04/15/25 22:00 04/16/25 08:34 75 MG Clindamycin Phosphate 50 ml @ 50 mls/hr Q8HR IV 04/15/25 22:00 04/16/25 13:31 50 MLS/HR Examination: GENERAL:Normal, HEENT:Normal, NECK:Normal, LUNGS:Normal, LUNGS:Abnormal (on oxygen), CVS:Normal, ABDOMEN:Normal, MSK:Normal, SKIN:Normal, NEURO:Normal, :Normal laboratory and microbiology Laboratory Tests 04/16/25 06:36 Test 04/16/25 06:36 Range/Units Serum Glucose 176 H 74-106 mg/dL Problem List/Assessment/Plan Problem List/Assessment/Plan #1 acute resp failure: cont oxygen #2 left foot ulcer/osteo ?sepsis; mri, iv antibiotics #3 dm: ssi #4 htn #5 acute on chronic renal failure ?vasomotor nephropathy #6 h/o dvt: hold pradaxa for possible surgery #7 chronic diastolic heart failure #8 nstemi: cardio eval advance care planning- full code- time spent 19 mins unstable for transfer Plan discussed with: Patient My Orders My Orders Orders - CHERELLE BRASWELL MD Procedure Category Date Status Time Glucose Blood PHA 04/16/25 Transmitted (Accu-Chek Comfort 17:00 Bedtime Insulin Scale PHA 04/16/25 Transmitted 22:00 Moderate Insulin Ss PHA 04/16/25 Transmitted 17:00 Dextrose 50% Syringe PHA 04/16/25 Transmitted 14:00 Urinalysis LAB 04/16/25 Uncollected 13:50 Basic Metabolic Panel LAB 04/17/25 Verified 06:00 Complete Blood Count LAB 04/17/25 Verified 06:00 PTPTT LAB 04/17/25 Verified 04:00 Hemoglobin A1c LAB 04/17/25 Verified 06:00 Dietary Evaluation Review Comments: Nutrition Recommendation 1) Shade 1 pk BID 2) CCHO 75 gm + cardiac diet 3) Monitor PO intake, lab values, weight trend, and I/O Expected Outcomes/Goals: To meet >75% estimated needs Wound to improve Fu 3-5 days Date of Service: Apr 16, 2025 Billing Provider: CHERELLE BRASWELL MD Common Visit Codes: [id number] INP/OBS CARE(HIGH) Secondary Visit Codes: [id number] CARE PLAN 30 MINUTES CHERELLE BRASWELL MD Apr 16, 2025 13:57
[2025-04-16] MEDS ORDERED: DEXTROSE (50%) 50ML SYRG IV PRN (14:00)
[2025-04-16] MEDS: ACCU-CHEK COMFORT CURVE STRIP VI SCH (17:00)
[2025-04-16 17:43] LABS: Urine Protein, UAD 1+ (Negative)
[2025-04-16] MEDS: InsuLIN REG 1unit/0.01ml Soln (100units/ml) SC SCH ×2 (17:53→21:58)
--- NOTE | 2025-04-16 20:17 | DVH ---
CLINICAL INDICATION: r/o osteomyelitis COMPARISON: CT CT L FOOT WO CONTRAST on DOS: 04/15/25, XY L FOOT 3 VIEW XRAY on DOS: 04/15/25 TECHNIQUE: Multiplanar, multisequence MRI of the left foot was performed without intravenous contrast . Contrast: None. INTERPRETATION: Bones: No evidence of acute fracture. There is T1 hypointensity in the medial aspect of the 1st meta tarsal head with corresponding edema, adjacent to a soft tissue defect. This is consistent with osteo myelitis. No other evidence of marrow replacing process. Joints: Hallux valgus. No joint effusion. Mild midfoot arthrosis. Soft tissues: Medial soft tissue swelling adjacent to the 1st metatarsophalangeal joint. There is a dorsal dorsal subcutaneous edema. No fluid collection. No high-grade tendon or ligament injury. Mild plantar fasciitis. IMPRESSION: 1. 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 2. No osteomyelitis in the midfoot. 3. Subcutaneous edema in the forefoot which may reflect cellulitis. No fluid collection. 4. Mild midfoot arthrosis. HS:Y
--- NOTE | 2025-04-16 23:34 | DVHPN2 ---
Consult Progress Note Date Seen: Apr 16, 2025 Subjective Other Systems: Patient was seen and evaluated in follow up. Patient is on 2 LPM NC. BUN 32, Irrigator Valve Pipe 1.99. Transthoracic echocardiogram revealed LVEF 60% with moderate MAC and mild mitral stenosis. Telemetry reviewed. Objective vital signs Vital Sign Date Time Temp Pulse Resp B/P (MAP) Pulse Ox O2 Delivery O2 Flow Rate FiO2 04/16/25 21:47 144/71 04/16/25 21:00 97.5 60 18 95 97.5 04/16/25 08:00 Nasal Cannula* 2 28 Total Intake and Output 04/15/25 04/15/25 04/16/25 15:00 23:00 07:00 Intake Total 100 ml 100 ml Balance 100 ml 100 ml medications Current Medications Medications Dose Ordered Sig/Luis F Route Start Time Stop Time Status Last Admin Dose Admin Acetaminophen/ Hydrocodone Bitart 1 tab Q4HP PRN PO 04/15/25 12:15 Ondansetron HCl 4 mg Q4HP PRN IV 04/15/25 12:15 Docusate Sodium 100 mg BIDPRN PRN PO 04/15/25 12:15 Acetaminophen 650 mg Q6HP PRN PO 04/15/25 12:15 Nitroglycerin 0.4 mg Q5MINP PRN SL 04/15/25 12:15 Morphine Sulfate 2 mg Q30M PRN IV 04/15/25 12:15 Ceftriaxone Sodium 50 ml @ 100 mls/hr DAILY@09 IV 04/16/25 09:00 04/16/25 08:34 100 MLS/HR Metoprolol Succinate 50 mg DAILY PO 04/16/25 10:00 Hydralazine HCl 10 mg Q6HP PRN IV 04/15/25 14:00 04/16/25 01:56 10 MG Furosemide 40 mg DAILY PO 04/16/25 10:00 04/16/25 08:35 40 MG Hydralazine HCl 50 mg TID PO 04/15/25 22:00 04/16/25 21:47 50 MG Amiodarone HCl 200 mg DAILY PO 04/15/25 17:35 04/15/25 18:10 200 MG Atorvastatin Calcium 20 mg HS PO 04/15/25 22:00 04/16/25 21:46 20 MG Clindamycin Phosphate 50 ml @ 50 mls/hr Q8HR IV 04/15/25 22:00 04/16/25 21:46 50 MLS/HR Diagnostic Test (Pha) 1 strip ACHS 04/16/25 17:00 04/16/25 21:47 1 STRIP Insulin Human Regular HS SC 04/16/25 22:00 04/16/25 21:58 2 UNITS Insulin Human Regular AC SC 04/16/25 17:00 04/16/25 17:53 6 UNITS Dextrose 50 ml UD PRN IV 04/16/25 14:00 Examination: GENERAL:Normal, HEENT:Normal, NECK:Normal, LUNGS:Normal, CVS:Normal, ABDOMEN:Normal, MSK:Normal, SKIN:Normal, NEURO:Normal laboratory and microbiology Laboratory Tests 04/16/25 06:36 Test 04/16/25 06:36 Range/Units Serum Glucose 176 H 74-106 mg/dL Problem List/Assessment/Plan Problem List/Assessment/Plan Problem List/Assessment/Plan Sepsis with 1st metatarsal diabetic ulcer. Possible pneumonia, ?UTI. NSTEMI likely type 2 secondary to above. Chronic compensated HFpEF. Antiarrhythmic use (amiodarone). Insulin-dependent diabetes mellitus. Hypertension. Dyslipidemia. CKD stage IIIb. History of DVT (on Pradaxa). History of CVA. Plan/Recommendation Continued all current supportive medical care. Patient has been seen by Angela Calhoun NP on my behalf. We have discussed the plan with the patient. Likely NSTEMI type II secondary to sepsis. Transthoracic echocardiogram revealed LVEF 60% with moderate MAC and mild mitral stenosis. Continue home amiodarone therapy for unknown diagnosis. Continue blood pressure control with BB. Placed on Pradaxa therapy per hospitalist, consider transition to Lovenox SC if surgical interventions needed. Additional plan as per the hospital course. Plan discussed with: Patient Dietary Evaluation Review Comments: Nutrition Recommendation 1) Shade 1 pk BID 2) CCHO 75 gm + cardiac diet 3) Monitor PO intake, lab values, weight trend, and I/O Expected Outcomes/Goals: To meet >75% estimated needs Wound to improve Fu 3-5 days Date of Service: Apr 16, 2025 Billing Provider: JOSEPHINE QUEEN MD Cardiology Common Codes: [id number] HOSP CARE(High JOSEPHINE QUEEN MD Apr 16, 2025 23:34
[2025-04-17] VITALS (7 sets, daily range): BP systolic 111–152; BP diastolic 56–73; PULSE 59–69; RESP 15–18; TEMP 97.6–98.4; O2SAT 93–98
[2025-04-17 06:54] LABS: Anion Gap 11 (5-15); Calcium 9.0 mg/dL (8.7-10.4); Carbon Dioxide 25 mmol/L (20-31); Chloride 102 mmol/L (98-107); Potassium 4.1 mmol/L (3.5-5.1); Sodium 138 mmol/L (136-145)
[2025-04-17 06:57] LABS: INR 1.13 (0.9-1.15); Partial Thromboplastin Time 35.0 SEC (24.5-34.5); Prothrombin Time 11.8 sec (9.3-11.8)
[2025-04-17 07:00] LABS: BUN/Creatinine Ratio 16.7 (10.0-20.0)
[2025-04-17 07:01] LABS: Blood Urea Nitrogen 38 mg/dL (9-23); Glucose 109 mg/dL (74-106)
[2025-04-17 07:07] LABS: Hematocrit 41.5 % (41.0-53.0); Hemoglobin 14.1 g/dL (13.5-17.5); Mean Corpuscular Hemoglobin 31.1 pg (28.0-32.0); Mean Corpuscular Volume 91.5 fL (80.0-100.0); Nucleated Red Blood Cells % 0.2 %
--- NOTE | 2025-04-17 11:20 | DVHPN2 ---
Vinny Lilly is an 89-year-old male with past medical history of diabetes, CHF, hypertension, CVA, hyperlipidemia, and chronic kidney disease, who came to the hospital for generalized weakness. This morning the patient was walking to the bathroom with his walker when he lost his strength and fell and hit his head. His called EMS to help get him up. When they arrived his blood pressure was SBP in the 70's and he was too weak to get up to the gurney and they had to help. him. Patient and state he has been progressively getting weaker over the last week. He has had a diabetic foot ulcer for about 1 year. He has home health that comes 3/week to change his dressings. He states this last week the home health nurse told him the wound was looking worse and to go to podiatry. He went to Podiatry on Tuesday, the wound was debrided and he was told he was going to need to follow up down in [place] due to the severity of the wound. While in ER troponin was mildly elevated, ER consulted cardiology. Changes from previous H/P or p: No Changes Eyes: No Pain, No Vision change, No Conjunctivae inflammation, No Eyelid inflammation, No Other, No Redness ENT: No Ear pain, No Ear discharge, No Nose pain, No Nose discharge, No Nose congestion, No Mouth pain, No Mouth swelling, No Throat pain, No Throat swelling, No Other Cardiovascular: No Chest Pain, No Palpitations, No Orthopnea, No Paroxysmal Noc. Dyspnea, No Edema, No Lt Headedness, No Other Respiratory: No Cough, No Dry, No Shortness of breath, No SOB with excertion, No Wheezing, No Hemoptysis, No Pleuritic Pain, No Sputum, No Other Gastrointestinal: No Nausea, No Vomiting, No Abdominal Pain, No Diarrhea, No Constipation, No Melena, No Hematochezia, No Other Genitourinary: No Dysuria, No Frequency, No Incontinence, No Hematuria, No Retention, No Other Musculoskeletal: No other, No neck pain, No shoulder pain, No arm pain, No back pain, No hand pain, No leg pain, No foot pain Skin: No Rash; Lesions (Diabetic foot ulcer); No Jaundice, No Bruising, No Other Objective Vitals Vital Signs Date Time Temp Pulse Resp B/P (MAP) Pulse Ox O2 Delivery O2 Flow Rate FiO2 8/27/25 09:00 97.9 63 16 132/73 (92) 97 97.9 04/16/25 20:00 Nasal Cannula* 2 28 Intake/Output Intake and Output 04/17/25 07:00 Intake Total 2000 ml Output Total 750 ml Balance 1250 ml Intake Oral 1800 ml IV Total 200 ml Output Urine Total 750 ml # Voids 2 # Bowel Movements 1 Exam Dermatological: Skin is dry with mild erythema and some maceration around the wound site No gross deformities noted Mild non-pitting edema present bilaterally Left hallux medial wound with bone exposed Vascular: Dorsalis pedis and posterior tibial pulses are 1+ bilaterally Capillary refill is under 2 seconds Skin temperature is warm bilaterally Neurologic: Protective sensation is absent on the plantar forefoot bilaterally Monofilament testing reveals decreased sensation in multiple plantar sites Musculoskeletal: Range of motion at the ankle and MTP joints is within normal limits. Strength is 5/5 in all tested muscle groups. Gait is antalgic due to offloading of the affected limb. Medications Current Medications Medications Dose Ordered Sig/Luis F Route Start Time Stop Time Status Last Admin Dose Admin Acetaminophen/ Hydrocodone Bitart 1 tab Q4HP PRN PO 04/15/25 12:15 Ondansetron HCl 4 mg Q4HP PRN IV 04/15/25 12:15 Docusate Sodium 100 mg BIDPRN PRN PO 04/15/25 12:15 Acetaminophen 650 mg Q6HP PRN PO 04/15/25 12:15 Nitroglycerin 0.4 mg Q5MINP PRN SL 04/15/25 12:15 Morphine Sulfate 2 mg Q30M PRN IV 04/15/25 12:15 Ceftriaxone Sodium 50 ml @ 100 mls/hr DAILY@09 IV 04/16/25 09:00 04/17/25 08:56 100 MLS/HR Metoprolol Succinate 50 mg DAILY PO 04/16/25 10:00 04/17/25 08:57 50 MG Hydralazine HCl 10 mg Q6HP PRN IV 04/15/25 14:00 04/16/25 01:56 10 MG Furosemide 40 mg DAILY PO 04/16/25 10:00 04/17/25 08:57 40 MG Hydralazine HCl 50 mg TID PO 04/15/25 22:00 04/17/25 05:36 50 MG Amiodarone HCl 200 mg DAILY PO 04/15/25 17:35 04/17/25 08:57 200 MG Atorvastatin Calcium 20 mg HS PO 04/15/25 22:00 04/16/25 21:46 20 MG Clindamycin Phosphate 50 ml @ 50 mls/hr Q8HR IV 04/15/25 22:00 04/17/25 05:33 50 MLS/HR Diagnostic Test (Pha) 1 strip ACHS 04/16/25 17:00 04/17/25 11:00 1 STRIP Insulin Human Regular HS SC 04/16/25 22:00 04/16/25 21:58 2 UNITS Insulin Human Regular AC SC 04/16/25 17:00 04/17/25 06:20 2 UNITS Dextrose 50 ml UD PRN IV 04/16/25 14:00 Laboratory Results Laboratory Tests 04/17/25 05:15 Chemistry Test 04/17/25 05:15 Calcium Level 9.0 mg/dL (8.7-10.4) Coagulation Test 04/17/25 05:15 Prothrombin Time 11.8 sec (9.3-11.8) Prothrombin Time INR 1.13 (0.9-1.15) Activated Partial Thromboplast Time 35.0 SEC (24.5-34.5) H Urinalysis Test 04/16/25 17:02 Urine Color Yellow (Yellow) Urine Clarity Clear (Clear) Urine pH 6.0 (5.0-9.0) Urine Specific [place] 1.012 (1.001-1.035) Urine Protein 1+ (Negative) H Urine Ketones Negative (Negative) Urine Blood Negative /uL (Negative) Urine Nitrite Negative (Negative) Urine Bilirubin Negative (Negative) Urine Urobilinogen Normal mg/dL (Negative) Urine Leukocyte Esterase Negative /uL (Negative) Urine RBC 6 /hpf (0 - 3) Urine Microscopic WBC < 1 /HPF (0-3) Urine Squamous Epithelial Cells Few /hpf (<5) Urine Bacteria None seen /hpf (None Seen) Urine Glucose Trace mg/dL (Normal) Microbiology Microbiology Date/Time Source Procedure Growth Status 04/15/25 15:05 Blood Blood Culture - Preliminary NO GROWTH AFTER 24 HOURS OF INCUBATION. Resulted 04/15/25 13:48 Hip Right Gram Stain - Final Resulted 04/15/25 13:48 Hip Right Wound Culture - Preliminary Resulted Assessment/Plan Assessment/Plan ASSESSMENT: Patient is a 89 year old seen on the floor for a worsening ulcer PLAN: - The patients chart was reviewed, clinical findings were discussed with the patient, the etiologies of the conditions were discussed in detail, and a treatment plan was agreed to at this time, with both oral and written instructions provided. - reviewed MRI showing concern for osteomyelitis of the medial aspect of the 1st metatarsal head - discussed surgical resection versus IV antibiotics - patient elected for 6 weeks IV antibiotics - recommend placement of PICC line - 6 weeks IV antibiotics - follow up with his outpatient wood last maker All questions were answered and concerns addressed to the patient's satisfaction. The patient was given the phone number to the clinic and was told how to make contact with the clinic should any concerns or questions arise. Patient understands that if any questions or concerns arise prior to the next appointment, we should be contacted immediately. FOLLOW-UP: Continue to follow while inpatient Plan discussed with: Patient My Orders Orders - EAN PHILLIPS DPM Procedure Category Date Status Time Mri L Foot Wo Contrast MRI 04/16/25 Resulted 13:05 Problem List: (1) Falling (2) Generalized weakness (3) Diabetic foot ulcer (4) Closed head injury (5) Demand ischemia (6) NSTEMI (non-ST elevated myocardial infarction) (7) Hypertensive crisis (8) Cholelithiasis (9) Dehydration (10) Hyperkalemia (11) Acute renal failure (12) Hypoxemia (13) Colitis (14) Diarrhea (15) Hyperglycemia (16) Leukocytosis (17) Pulmonary edema (18) Hypertension (19) Pneumonia (20) Acute on chronic diastolic heart failure (21) CKD (chronic kidney disease) (22) Medication refill (23) Mild dehydration (24) Near syncope (25) Symptomatic bradycardia (26) Acute DVT (deep venous thrombosis) (27) Acute stroke due to ischemia Visit Coding Podiatry Date of Service if different f: Apr 17, 2025 Billing Provider: EAN PHILLIPS DPM Podiatry Common Visit Codes: [id number] INP/OBS CARE(HIGH) EAN PHILLIPS DPM Apr 17, 2025 11:20
--- NOTE | 2025-04-17 13:18 | DVHDS2 ---
Discharge Summary Date of Admission Apr 15, 2025 at 12:02 Date of Discharge: Apr 17, 2025 Labs/Diagnostic Data: Laboratory Results Test 04/17/25 10:21 04/17/25 05:15 04/16/25 17:02 04/16/25 06:36 POC Glucose 251 mg/dl (70-106) White Blood Count 10.3 10^3/uL (4.4-10.8) Red Blood Count 4.54 10^6/uL (4.5-5.90) Hemoglobin 14.1 g/dL (13.5-17.5) Hematocrit 41.5 % (41.0-53.0) Mean Corpuscular Volume 91.5 fL (80.0-100.0) Mean Corpuscular Hemoglobin 31.1 pg (28.0-32.0) Mean Corpuscular Hemoglobin Concent 33.9 g/dL (32.0-36.0) Red Cell Distribution Width 14.0 % (11.8-14.3) Platelet Count 166 10^3/uL (140-450) Mean Platelet Volume 9.5 fL (6.9-10.8) Neutrophils (%) (Auto) 56.2 % (37.0-80.0) Lymphocytes (%) (Auto) 23.4 % (10.0-50.0) Monocytes (%) (Auto) 16.4 % (0.0-12.0) Eosinophils (%) (Auto) 3.6 % (0.0-7.0) Basophils (%) (Auto) 0.4 % (0.0-2.0) Neutrophils # (Auto) 5.8 10 ^3/uL (1.6-8.6) Lymphocytes # (Auto) 2.4 10 ^3/uL (0.4-5.4) Monocytes # (Auto) 1.7 10 ^3/uL (0-1.3) Eosinophils # (Auto) 0.4 10 ^3/uL (0-0.8) Basophils # (Auto) 0 10 ^3/uL (0-0.2) Nucleated Red Blood Cells 0.2 % Prothrombin Time 11.8 sec (9.3-11.8) Prothrombin Time INR 1.13 (0.9-1.15) Activated Partial Thromboplast Time 35.0 SEC (24.5-34.5) Sodium Level 138 mmol/L (136-145) Potassium Level 4.1 mmol/L (3.5-5.1) Chloride Level 102 mmol/L (98-107) Carbon Dioxide Level 25 mmol/L (20-31) Anion Gap 11 (5-15) Blood Urea Nitrogen 38 mg/dL (9-23) Creatinine 2.28 mg/dL (0.700-1.30) Glomerular Filtration Rate Calc 27 mL/min (>90) BUN/Creatinine Ratio 16.7 (10.0-20.0) Serum Glucose 109 mg/dL (74-106) Calcium Level 9.0 mg/dL (8.7-10.4) Urine Color Yellow (Yellow) Urine Clarity Clear (Clear) Urine pH 6.0 (5.0-9.0) Urine Specific [place] 1.012 (1.001-1.035) Urine Protein 1+ (Negative) Urine Ketones Negative (Negative) Urine Blood Negative /uL (Negative) Urine Nitrite Negative (Negative) Urine Bilirubin Negative (Negative) Urine Urobilinogen Normal mg/dL (Negative) Urine Leukocyte Esterase Negative /uL (Negative) Urine RBC 6 /hpf (0 - 3) Urine Microscopic WBC < 1 /HPF (0-3) Urine Squamous Epithelial Cells Few /hpf (<5) Urine Bacteria None seen /hpf (None Seen) Urine Glucose Trace mg/dL (Normal) Hemoglobin A1c 7.0 % A1C (<5.7) Total Bilirubin 0.8 mg/dL (0.2-1.0) Aspartate Amino Transferase (AST) 40 U/L (13-40) Alanine Aminotransferase (ALT) 40 U/L (7-40) Alkaline Phosphatase 55 U/L (46-116) Total Protein 6.3 g/dL (5.7-8.2) Albumin 3.5 g/dL (3.2-4.8) Test 04/15/25 09:21 Troponin I High Sensitivity 69 ng/L (</=54) Other Laboratory Tests 04/17/25 05:15 Brief Hx & Hospital Course: SEE DICTATED NOTE Condition at Discharge: Fair Final Diagnosis/Problems List OSTEOMYELITIS Discharge Disposition: Acute Care Facility Discharge Instruct/Medications Diet: Cardiac 2g Na,low cholest Activity: No Restrictions, As Tolerated Follow Up/Referral: FU WITH [facility] Medications: PER OCT Scheduled Amiodarone HCl (Amiodarone HCl), 1 TAB PO DAILY, (Reported) Amlodipine Besylate (Amlodipine Besylate), 1 TAB PO DAILY, (Reported) Aspirin (Aspirin Low Dose), 1 TAB PO DAILY, (Reported) Atenolol (Atenolol), 1 TAB PO BID, (Reported) Atorvastatin Calcium (Atorvastatin Calcium), 1 TAB PO HS, (Reported) Coenzyme Q10 (Ubidecarenone) (Coq-10), Unknown Dose PO DAILY, (Reported) Dabigatran Etexilate Mesylate (Dabigatran Etexilate), 1 CAP PO BID, (Reported) Doxycycline Monohydrate (Doxycycline Monohydrate), 1 TAB PO BID, (Reported) Furosemide (Furosemide), 1 TAB PO DAILY, (Reported) Hydralazine Hcl (Hydralazine Hcl), 1 TAB PO TID, (Reported) Insulin NPH (Human) (Isophane) (Humulin N), 25 UNIT SC BID, (Reported) Insulin Regular (Human) (Humulin R), 5 UNIT IV BID, (Reported) Lisinopril (Lisinopril), 1 TAB PO BID, (Reported) Miscellaneous Medications Gabapentin (Gabapentin), CAP PO, (Reported) Prednisone (Prednisone), TAB PO, (Reported) Discontinued Medications Benzonatate (Benzonatate), 1 CAP PO TID, (Reported) Discharge Statement: "Patient was advised to return to the ER or call 911 if any headaches, dizziness, shortness of breath, chest pain, abdominal pain, bleeding, fevers, or worsening of medical condition. Patient was counseled about treatment plan, medications, possible side effects, patientverbalized understanding. All questions were answered to the best of my ability. This discharge took greater then 30 minutes in planning, reviewing documentation, counseling the patient, and discussing with other team members." ASSESSMENT ASSESSMENT Assessment OSTEOMYELITIS Date of Service: Apr 17, 2025 Billing Provider: CHERELLE BRASWELL MD Common Visit Codes: [id number] DISCH DAY >30min CHERELLE BRASWELL MD Apr 17, 2025 13:18
--- NOTE | 2025-04-17 13:53 | DVHDS ---
DATE OF DISCHARGE: 04/17/2025 TRANSFER SUMMARY HISTORY OF PRESENT ILLNESS: The patient is an 89-year-old gentleman who was admitted with a history of generalized weakness and fall. The patient was noted to have a low blood pressure at the time the paramedics got there. The patient has history of diabetes, congestive heart failure, hypertension, CVA, chronic kidney disease, and foot ulcer. HOSPITAL COURSE: The patient's creatinine was at 2.39. Troponin levels were mildly elevated at 69. The patient's foot MRI showed osteomyelitis of the 1st metatarsal head of the left foot. Doppler of bilateral lower extremities showed no significant stenosis. The patient had a head CT that showed no acute intracranial abnormality. He was seen in Cardiology consult by Dr. Newsome and Podiatry consult by Dr. Franco. The patient's echocardiogram showed an ejection fraction of 60% with severe LVH. The patient's blood cultures have so far been negative. Wound cultures are growing rare Staph aureus species and coag-negative staph. The patient will be now transferred to [facility] for further management. FINAL DIAGNOSES: * Acute respiratory failure. * Left foot osteomyelitis with questionable sepsis. * Status post fall with likely autonomic insufficiency/failure. * Diabetes mellitus. * Hypertension. * Acute on chronic renal failure, questionable vasomotor nephropathy. * History of DVT. * Chronic diastolic heart failure. * Non-STEMI, likely type 2. Time spent in discharge planning and review of plan with the patient, , and nursing was 39 minutes. MD DESTINEE Mejia/NATALYA TID: [id number] RECEIPT: [id number]
[2025-04-17] MEDS ORDERED: DABIGATRAN 75 MG CAP PO SCH (20:00)
--- NOTE | 2025-04-18 01:29 | DVHPN2 ---
Progress Note - Dictate Date Seen: Apr 17, 2025 Medical Necessity Reason Pt with a Central, PICC or Fol: No Subjective Patient was seen and evaluated in follow up. Patient has no new complaints at this time. Patient denies any cardiac symptoms. Patient is cardiac stable for transfer to [facility]. Telemetry reviewed. vital signs Vital Sign Date Time Temp Pulse Resp B/P (MAP) Pulse Ox O2 Delivery O2 Flow Rate FiO2 04/17/25 18:45 98.4 62 15 95 04/17/25 17:00 140/65 (90) 04/17/25 08:00 Room Air* 0 N/A Nasal Cannula* Total Intake and Output 04/17/25 04/17/25 04/18/25 15:00 23:00 07:00 Intake Total 100 ml 950 ml Balance 100 ml 950 ml objective GENERAL: Alert and oriented x 3. No acute distress. EYES: PERRL, EOMI. Anicteric. HENT: Moist mucous membranes. LUNGS: Clear to auscultation bilaterally. CARDIOVASCULAR: Regular rate and rhythm. ABDOMEN: Soft, nontender and nondistended. EXTREMITIES: No edema. NEUROLOGIC: No focal neurological deficits. SKIN: Warm, dry. laboratory and microbiology Laboratory Tests 04/17/25 05:15 Test 04/17/25 05:15 Range/Units Serum Glucose 109 H 74-106 mg/dL Problem List Sepsis with 1st metatarsal diabetic ulcer. Possible pneumonia, ?UTI. NSTEMI likely type 2 secondary to above. Chronic compensated HFpEF. Antiarrhythmic use (amiodarone). Insulin-dependent diabetes mellitus. Hypertension. Dyslipidemia. CKD stage IIIb. History of DVT (on Pradaxa). History of CVA. Assessment/Plan Continued all current supportive medical care. Diuretics with Lasix. IV antibiotics as ordered. Amiodarone. Morphine and [place] for pain management. Additional plan as per the hospital course. A total of 25 minutes was spent reviewing the patient record, examining the patient, making a diagnostic and therapeutic plan, discussing this plan with medical personnel, following up on diagnostic studies and following the patient for clinical stability excluding any and all procedures. At least 50% of this time was spent in direct, [id number] contact. Dietary Evaluation Review Comments: Nutrition Recommendation 1) Shade 1 pk BID 2) CCHO 75 gm + cardiac diet 3) Monitor PO intake, lab values, weight trend, and I/O Expected Outcomes/Goals: To meet >75% estimated needs Wound to improve Fu 3-5 days Plan discussed with: Patient JOSEPHINE QUEEN MD Apr 18, 2025 00:51
== END 2025-04-17 19:00 | disposition short-term general hospital (02) | DRG 871 ==
LOC: ER 05:02 → EDBD 05:02 → OVERFLOW 12:02 → TELE-WESTW 23:43
PROVIDERS: ADMIT Internal Medicine; ATTEND Internal Medicine
DX: A41.9 Sepsis, unspecified organism (principal); I21.A1 Myocardial infarction type 2; N17.0 Acute kidney failure with tubular necrosis; J96.00 Acute respiratory failure, unspecified whether with hypoxia or hypercapnia; M86.8X7 Other osteomyelitis, ankle and foot; I50.32 Chronic diastolic (congestive) heart failure; L97.528 Non-pressure chronic ulcer of other part of left foot with other specified severity; I13.0 Hypertensive heart and chronic kidney disease with heart failure and stage 1 through stage 4 chronic kidney disease, or unspecified chronic kidney disease; S09.8XXA Other specified injuries of head, initial encounter; N18.32 Chronic kidney disease, stage 3b; E11.22 Type 2 diabetes mellitus with diabetic chronic kidney disease; E11.69 Type 2 diabetes mellitus with other specified complication; E11.621 Type 2 diabetes mellitus with foot ulcer; E78.5 Hyperlipidemia, unspecified; K80.20 Calculus of gallbladder without cholecystitis without obstruction; Z87.440 Personal history of urinary (tract) infections; Z91.81 History of falling; Z86.73 Personal history of transient ischemic attack (TIA), and cerebral infarction without residual deficits; Z80.0 Family history of malignant neoplasm of digestive organs; Z86.718 Personal history of other venous thrombosis and embolism; Z79.4 Long term (current) use of insulin; W06.XXXA Fall from bed, initial encounter; Y92.091 Bathroom in other non-institutional residence as the place of occurrence of the external cause; Y93.89 Activity, other specified; Y99.8 Other external cause status
CPT/HCPCS: 36415; 70450; 71045; 73630; 73700; 73718; 80048; 80053; 81001; 82962; 83036; 84484; 85025; 85610; 85730; 87040; 87077; 87081; 87186; 93005; 93306; 93925; 96365; 96366; 96367; 99291; G0378; J1815; J2543; J3490

== ENCOUNTER 2025-06-07 12:05 | Inpatient (IN) | payer OTHER ==
[~2025-06-07] VITALS: Ht 182.9 cm; Wt 90.2 kg
[~2025-06-07 12:05] MED LIST changes: +AMIO200T13 PO; +ASPI81CH59 PO; +ATOR20TA50 PO; -BENZ100C97 PO; +COEN400C8 PO; +DABI75CA PO; +INSREG3 SC; +INSUINJ2 SC
--- NOTE | 2025-06-07 12:50 | ED.PDOC ---
History of Present Illness HPI Comments 89 y.o male with PMHx of HTN, HLD, DM, COPD and CKF, presents to the ED via EMS for a chief complaint of generalized weakness. EMS reports on scene, patient was hypotensive in the 80's systolic and had positive orthostatics. 500mL of IV fluids was administrated by EMS and BP upon ED arrival reads 146/69. Patient reports improvement s/p fluid given. He mentions not taking his home medications this morning yet. No other symptoms reported at this time. Chief Complaint: Low Blood Pressure Time Seen by MD: 12:14 Primary Care Provider: CARLOS MANUEL Reviewed Notes: Nurses Notes, Nurses Medical Assistants Phlebotomists Notes, Medications, Allergies Allergies: Coded Allergies: NO KNOWN ALLERGIES (Unverified , 08/16/15) Home Meds Reported Medications Coenzyme Q10 (Ubidecarenone) (COQ-10) 400 Mg Cap, PO DAILY, CAP 04/16/25 Aspirin (Aspirin Low Dose) 81 Mg Chw, 1 TAB PO DAILY, #30 TAB 3 Refills 04/16/25 Insulin Regular (Human) (Humulin R) 100 Unit/Ml Inj, 5 UNIT IV BID, INJ 04/16/25 Insulin NPH (Human) (Isophane) (Humulin N) 100 Unit/Ml Inj, 25 UNIT SC BID, INJ 04/16/25 Dabigatran Etexilate Mesylate (Dabigatran Etexilate) 75 Mg Cap, 1 CAP PO BID 04/15/25 Atorvastatin Calcium (ATORVASTATIN CALCIUM) 20 Mg Tab, 1 TAB PO HS 04/15/25 Amiodarone HCl (Amiodarone HCl) 200 Mg Tab, 1 TAB PO DAILY 04/15/25 Prednisone (Prednisone) 5 Mg Tab, TAB PO 11/03/22 Lisinopril (Lisinopril) 20 Mg Tab, 1 TAB PO BID 11/03/22 Atenolol (Atenolol) 50 Mg Tab, 1 TAB PO BID 11/03/22 Doxycycline Monohydrate (Doxycycline Monohydrate) 100 Mg Tab, 1 TAB PO BID 11/03/22 Gabapentin (Gabapentin) 100 Mg Cap, CAP PO 11/03/22 Hydralazine Hcl (Hydralazine Hcl) 50 Mg Tab, 1 TAB PO TID 11/03/22 Furosemide (Furosemide) 40 Mg Tab, 1 TAB PO DAILY 11/03/22 Amlodipine Besylate (Amlodipine Besylate) 5 Mg Tab, 1 TAB PO DAILY 11/03/22 Information Source: Patient, Emergency Med Personnel Mode of Arrival: EMS Severity: Moderate Timing: Hours Duration: Since onset Past Medical History PAST MEDICAL HISTORY: CKF, COPD, DM, High Lipids, HTN, UTI'S Surgical History: Denies all surgeries Family History Family History: Reviewed,noncontributory to illness, Family hx of DM, Family hx of Cancer Social History Smoker: Non-Smoker Alcohol: Denies ETOH Use Drugs: Denies Drug Use Lives In: Home Constitutional: reports: weakness; denies: chills, diaphoresis, fatigue, fever, malaise, sweats, others EENTM: denies: blurred vision, double vision, ear bleeding, ear discharge, ear drainage, ear pain, ear ringing, eye pain, eye redness, hearing loss, mouth pain, mouth swelling, nasal discharge, nose bleeding, nose congestion, nose pain, photophobia, tearing, throat pain, throat swelling, voice changes, others Respiratory: denies: cough, hemoptysis, orthopnea, SOB at rest, shortness of breath, SOB with excertion, stridor, wheezing, others Cardiovascular: denies: chest pain, dizzy spells, diaphoresis, Dyspnea on exertion, edema, irregular heart beat, left arm pain, lightheadedness, palpitations, PND, syncope, others Gastrointestinal: denies: abdomen distended, abdominal pain, blood streaked bowels, constipated, diarrhea, dysphagia, difficulty swallowing, hematemesis, melena, nausea, poor appetite, poor fluid intake, rectal bleeding, rectal pain, vomiting, others Genitourinary: denies: burning, dysuria, flank pain, frequency, hematuria, incontinence, penile discharge, penile sore, pain, testicle pain, testicle swelling, urgency, others Neurological: denies: dizziness, fainting, headache, left sided numbness, left sided weakness, numbness, paresthesia, pre-existing deficit, right sided numbness, right sided weakness, seizure, speech problems, tingling, tremors, weakness, others Musculoskeletal: denies: back pain, gout, joint pain, joint swelling, muscle pain, muscle stiffness, neck pain, others Integumetry: denies: bruises, change in color, change in hair/nails, dryness, laceration, lesions, lumps, rash, wounds, others Allergic/Immunocompromised: denies: Difficulty Healing, Frequent Infections, Hives, Itching, others Hematologic/Lymphatic: denies: anemia, blood clots, easy bleeding, easy bruising, swollen glands, others Endocrine: denies: excessive hunger, excessive sweating, excessive thirst, excessive urination, flushing, intolerance to cold, intolerance to heat, unexplained weight gain, unexplained weight loss, others Psychiatric: denies: anxiety, bipolar disorder, depression, hopeless, panic disorder, schizophrenia, sleepless, suicidal, others All Other Systems: Reviewed and Negative Physical Exam General Appearance: Moderate Distress HEENT: Normal ENT Inspection, Pharynx Normal, TMs Normal Neck: Full Range of Motion, Non-Tender, Normal, Normal Inspection Respiratory: Chest Non-Tender, Lungs Clear, No Accessory Muscle Use, No Respiratory Distress, Normal Breath Sounds Cardiovascular: No Edema, No JVD, No Murmur, No Gallop, Normal Peripheral Pulses, Regular Rate/Rhythm Breast Exam: Deferred Gastrointestinal: No Organomegaly, Non Tender, No Pulsatile Mass, Normal Bowel Sounds, Soft Genitalia: Deferred Pelvic: Deferred Rectal: Deferred Extremities: No calf tenderness, Normal capillary refill, Normal inspection, Normal range of motion, Non-tender, No pedal edema Musculoskeletal : Apperance: Normal Neurologic: Alert, No Motor Deficits, Normal Affect, Normal Mood, No Sensory Deficits Cerebellar Function: NOT DONE Reflexes: NOT DONE Skin: Dry, Normal Color, Warm Peripheral Pulses: 3+ Radial (R), 3+ Radial (L) Lymphatic: No Adenopathy Was a procedure done? Was a procedure done?: No Differential Dx Considerations may include: Hypotension, Dehydration, electrolyte imbalance, viral infection X-Ray, Labs, Meds, VS Vital Signs Date Time Temp Pulse Resp B/P (MAP) Pulse Ox O2 Delivery O2 Flow Rate FiO2 06/07/25 15:24 97.8 78 18 129/57 (81) 95 97.8 06/07/25 12:10 98.7 76 16 146/69 96 98.7 Lab Test 06/07/25 15:11 06/07/25 13:00 Range/Units Troponin I High Sensitivity Pending 112 *H </=54 ng/L White Blood Count 7.2 4.4-10.8 10^3/uL Red Blood Count 4.80 4.5-5.90 10^6/uL Hemoglobin 14.8 13.5-17.5 g/dL Hematocrit 44.0 41.0-53.0 % Mean Corpuscular Volume 91.7 80.0-100.0 fL Mean Corpuscular Hemoglobin 30.8 28.0-32.0 pg Mean Corpuscular Hemoglobin Concent 33.6 32.0-36.0 g/dL Red Cell Distribution Width 14.4 H 11.8-14.3 % Platelet Count 109 L 140-450 10^3/uL Mean Platelet Volume 9.0 6.9-10.8 fL Neutrophils (%) (Auto) 62.2 37.0-80.0 % Lymphocytes (%) (Auto) 21.1 10.0-50.0 % Monocytes (%) (Auto) 15.1 H 0.0-12.0 % Eosinophils (%) (Auto) 1.0 0.0-7.0 % Basophils (%) (Auto) 0.6 0.0-2.0 % Neutrophils # (Auto) 4.5 1.6-8.6 10 ^3/uL Lymphocytes # (Auto) 1.5 0.4-5.4 10 ^3/uL Monocytes # (Auto) 1.1 0-1.3 10 ^3/uL Eosinophils # (Auto) 0.1 0-0.8 10 ^3/uL Basophils # (Auto) 0 0-0.2 10 ^3/uL Nucleated Red Blood Cells 0.1 % Sodium Level 144 136-145 mmol/L Potassium Level 4.0 3.5-5.1 mmol/L Chloride Level 107 98-107 mmol/L Carbon Dioxide Level 26 20-31 mmol/L Anion Gap 11 5-15 Blood Urea Nitrogen 44 H 9-23 mg/dL Creatinine 2.52 H 0.700-1.30 mg/dL Glomerular Filtration Rate Calc 24 >90 mL/min BUN/Creatinine Ratio 17.5 10.0-20.0 Serum Glucose 151 H 74-106 mg/dL Calcium Level 9.1 8.7-10.4 mg/dL Current Medications Medications (Trade) Dose Ordered Sig/Luis F Route Start Time Stop Time Status Last Admin Sodium Chloride 1,000 ml @ 1,000 mls/hr Q1H ONCE IV 06/07/25 12:30 06/07/25 13:29 DC 06/07/25 13:03 Enoxaparin Sodium (Lovenox) 90 mg ONCE ONCE SC 06/07/25 14:30 06/07/25 14:31 DC 06/07/25 15:20 Patient alert. Came in because of generalized weakness. Blood pressure was low. Establish intravenous access. Was given fluids. Cardiac marker elevated. Blood sugar elevated. Kidney function elevated. WBC within normal limits. Hemoglobin within normal limits. EKG reviewed does not show any acute changes. Explained to the patient. Continue monitoring. X-Ray, Labs, Meds, VS Comment [place] [id number] Ph: [phone] DIAGNOSTIC IMAGING Diagnostic Imaging Report : [id number] Signed PATIENT: AYANA HUSSEIN ACCT: [id number] UNIT: [id number] : 1935 LOC: ER ROOM / BED: / AGE / SEX: 89 / M ADM STATUS: REG ER SERVICE 16 ORDERING PHYSICIAN: MER KEBEDE MD PROCEDURE(s): CXRP - CHEST PORTABLE REASON: sob ORDER NUMBER(s): [id number], ACCESSION NUMBER(s): [id number] CHEST RADIOGRAPH Indication: sob Technique: Single frontal view of the chest was obtained COMPARISON: XY CHEST PORTABLE on DOS: 04/15/25, XY CHEST PORTABLE on DOS: 12/27/22, XY CHEST PORTABLE on DOS: 11/18/22, XY CHEST XRAY 1 VIEW on DOS: 11/16/22, XY CHEST PORTABLE on DOS: 11/11/22 FINDINGS: Lines and Tubes: None Lungs: Clear Pleura: No effusion. No pneumothorax. Cardiomediastinal contours: Unremarkable Bones: Unremarkable IMPRESSION: No acute disease. ATED BY: WARREN LARA MD DICTATED DATE/TIME: 06/07/251447 SIGNED BY: WARREN LARA MD SIGNED DATE/TIME: 06/07/251447 CC: Time of 1ST Reevaluation: 12:43 Reevaluation 1ST: Unchanged Patient Education/Counseling: Diagnosis, Treatment, Prognosis Family Education/Counseling: No Family Present SEPSIS Sepsis Screen Date sepsis recognized/suspect: Jun 07, 2025 Time Sepsis recognized/suspect: 1210 Recent Procedure: No On Antibiotic Therapy: No Respiratory Rate >20: No Heart Rate >90: No Temp<36 C (96.8 F) or >38.3 C: No SBP <90 or MAP <65 mmHG: No New Acute Mental Status Change: No Is the patient on CPAP, BIPAP,: No Physician Orders Chest Portable (06/07/25 14:17) Urinalysis (06/07/25 12:24) Troponin-I Hs (06/07/25 15:00) Troponin-I Hs (06/07/25 16:00) Vital Signs Date Time Temp Pulse Resp B/P (MAP) Pulse Ox O2 Delivery O2 Flow Rate FiO2 06/07/25 15:24 97.8 78 18 129/57 (81) 95 97.8 06/07/25 12:10 98.7 76 16 146/69 96 98.7 Laboratory Tests Test 06/07/25 13:00 White Blood Count 7.2 10^3/uL (4.4-10.8) Medications Medications Dose Ordered Sig/Luis F Route Start Time Stop Time Status Last Admin Dose Admin Enoxaparin Sodium 90 mg ONCE ONCE SC 06/07/25 14:30 06/07/25 14:31 DC 06/07/25 15:20 Sodium Chloride 1,000 ml @ 1,000 mls/hr Q1H ONCE IV 06/07/25 12:30 06/07/25 13:29 DC 06/07/25 13:03 Departure 1 Departure Time of Disposition: 14:22 Impression: Primary Impression: Hypotension Qualified Codes: I95.9 - Hypotension, unspecified Additional Impressions: Demand ischemia Uncontrolled diabetes mellitus Qualified Codes: E13.65 - Other specified diabetes mellitus with hyperglycemia Disposition: ADMITTED INPATIENT Admit to: Med Surg Condition: Guarded Critical Care Note Critical Care Time?: No Stability Stability form required: No I personally scribed for MER KEBEDE MD ([email or web address]) on 06/07/25 at 12:50. Electronically submitted by Cait Wallace ([facility]). I personally scribed for MER KEBEDE MD ([email or web address]) on 06/07/25 at 15:49. Electronically submitted by Cait Wallace ([facility]). MER KEBEDE MD Jun 07, 2025 12:50
[2025-06-07] MEDS: SODIUM CHLORIDE 0.9% 1,000 ML IV ONE (13:03)
[2025-06-07 13:21] LABS: Hematocrit 44.0 % (41.0-53.0); Hemoglobin 14.8 g/dL (13.5-17.5); Mean Corpuscular Hemoglobin 30.8 pg (28.0-32.0); Mean Corpuscular Volume 91.7 fL (80.0-100.0); Nucleated Red Blood Cells % 0.1 %
[2025-06-07 13:28] LABS: Chloride 107 mmol/L (98-107); Potassium 4.0 mmol/L (3.5-5.1); Sodium 144 mmol/L (136-145)
[2025-06-07 13:29] LABS: Anion Gap 11 (5-15); Carbon Dioxide 26 mmol/L (20-31)
[2025-06-07 13:30] LABS: Calcium 9.1 mg/dL (8.7-10.4)
[2025-06-07 13:34] LABS: BUN/Creatinine Ratio 17.5 (10.0-20.0)
[2025-06-07 13:36] LABS: Blood Urea Nitrogen 44 mg/dL (9-23); Glucose 151 mg/dL (74-106)
--- NOTE | 2025-06-07 14:51 | DVH ---
CHEST RADIOGRAPH Indication: sob Technique: Single frontal view of the chest was obtained COMPARISON: XY CHEST PORTABLE on DOS: 04/15/25, XY CHEST PORTABLE on DOS: 12/27/22, XY CHEST PORTABLE on DOS: 11/18/22, XY CHEST XRAY 1 VIEW on DOS: 11/16/22, XY CHEST PORTABLE on DOS: 11/11/22 FINDINGS: Lines and Tubes: None Lungs: Clear Pleura: No effusion. No pneumothorax. Cardiomediastinal contours: Unremarkable Bones: Unremarkable IMPRESSION: No acute disease.
[2025-06-07] MEDS: ENOXAPARIN SOD 100 MG/1 ML SYRINGE SC ONE (15:20)
[2025-06-07 15:24] VITALS: PULSE 78; RESP 18; O2SAT 95
[2025-06-07] MEDS ORDERED: NITROGLYCERIN 0.4 MG SL TAB SL PRN (22:45)
[2025-06-07] MEDS ORDERED: ACETAMINOPHEN 325 MG TAB PO PRN (22:45)
[2025-06-07] MEDS ORDERED: MORPHINE SULFATE INJ 2 MG/ml SYRG IV PRN (22:45)
--- NOTE | 2025-06-07 22:47 | DVHHPRES ---
History of Present Illness Resident Creating Document: HAYDE CASTAÑEDA History of Present Illness Vinny Erickson is a 89-year-old male patient who presents to ED with chief complaint of generalized weakness in functional class II associated with hypotension which started two days prior to his admission. Patient also co mplains of dyspnea in same functional class. Denies any sick contacts, recent travel, chest pain, bleeding or motor or sensory deficits. 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 Surgical history: PTCA to left leg with stent placement, multiple debridements of left foot Family history: Father had diabetes and [place] Social history: Lives in hazard with (she is the next of kin) denies current tobacco, alcohol and other drug abuse Allergies: Denies Home medication: Atorvastatin 20 mg p.o. daily, amiodarone 200 mg p.o. daily, Plavix 75 mg p.o. daily, furosemide 40 mg p.o. daily, hydralazine 50 mg p.o. b.i.d., insulin rapid 5 units b.i.d. and basal 25 units b.i.d.. Patient seen and examined at bedside. Currently has no new complaints. Patient we will l be admitted for further evaluation Past Medical History Per HPI Past Surgical History Per HPI Family History Per HPI Past Social History Per HPI Review of Systems Review of Systems Per HPI Allergies: Coded Allergies: NO KNOWN ALLERGIES (Unverified , 08/16/15) Exam Vital Signs Vital Signs Date Time Temp Pulse Resp B/P (MAP) Pulse Ox O2 Delivery O2 Flow Rate FiO2 06/07/25 20:10 98.0 77 18 150/79 (102) 95 98.0 06/07/25 15:24 Room Air* 0 21 Exam Patient lying in bed, in no acute distress General: Lucid, afebrile, mucosae are moist Cardiovascular: Normal S1 and S2. No murmurs, gallops or rubs Respiratory: Normal ventilation mechanics. Clear lung sounds on auscultation Abdomen: Soft, nontender, no organomegaly, normal bowel sounds MSK/skin: Mobilizes 4 limbs. Skin is dry and warm. Healed ulcer in medial a spect of left foot, fibrin is present, no purulent secretions nor erythema Neurological: Oriented in 3 spheres. No motor no sensitive deficits. Pupils are isocoric and reactive Labs/Xrays Labs Test 06/07/25 17:45 06/07/25 13:00 Range/Units Troponin I High Sensitivity 162 *H </=54 ng/L White Blood Count 7.2 4.4-10.8 10^3/uL Red Blood Count 4.80 4.5-5.90 10^6/uL Hemoglobin 14.8 13.5-17.5 g/dL Hematocrit 44.0 41.0-53.0 % Mean Corpuscular Volume 91.7 80.0-100.0 fL Mean Corpuscular Hemoglobin 30.8 28.0-32.0 pg Mean Corpuscular Hemoglobin Concent 33.6 32.0-36.0 g/dL Red Cell Distribution Width 14.4 H 11.8-14.3 % Platelet Count 109 L 140-450 10^3/uL Mean Platelet Volume 9.0 6.9-10.8 fL Neutrophils (%) (Auto) 62.2 37.0-80.0 % Lymphocytes (%) (Auto) 21.1 10.0-50.0 % Monocytes (%) (Auto) 15.1 H 0.0-12.0 % Eosinophils (%) (Auto) 1.0 0.0-7.0 % Basophils (%) (Auto) 0.6 0.0-2.0 % Neutrophils # (Auto) 4.5 1.6-8.6 10 ^3/uL Lymphocytes # (Auto) 1.5 0.4-5.4 10 ^3/uL Monocytes # (Auto) 1.1 0-1.3 10 ^3/uL Eosinophils # (Auto) 0.1 0-0.8 10 ^3/uL Basophils # (Auto) 0 0-0.2 10 ^3/uL Nucleated Red Blood Cells 0.1 % Sodium Level 144 136-145 mmol/L Potassium Level 4.0 3.5-5.1 mmol/L Chloride Level 107 98-107 mmol/L Carbon Dioxide Level 26 20-31 mmol/L Anion Gap 11 5-15 Blood Urea Nitrogen 44 H 9-23 mg/dL Creatinine 2.52 H 0.700-1.30 mg/dL Glomerular Filtration Rate Calc 24 >90 mL/min BUN/Creatinine Ratio 17.5 10.0-20.0 Serum Glucose 151 H 74-106 mg/dL Calcium Level 9.1 8.7-10.4 mg/dL SEPSIS Sepsis Screen Date sepsis recognized/suspect: Jun 07, 2025 Time Sepsis recognized/suspect: 1523 Recent Procedure: No On Antibiotic Therapy: No Respiratory Rate >20: No Heart Rate >90: No Temp<36 C (96.8 F) or >38.3 C: No SBP <90 or MAP <65 mmHG: No New Acute Mental Status Change: No Is the patient on CPAP, BIPAP,: No Physician Orders Admit (06/07/25:39) Code Status (06/07/25:39) Acetaminophen Tablet (Tylenol Tablet) (06/07/25 22:45) Complete Blood Count (06/08/25 04:00) Comprehensive Metabolic Panel (06/08/25 04:00) Cardiac Diet-2gna,Lofat,Lochol (06/08/25 Breakfast) Echo 2d Mode Cardiac Dop (06/07/25:39) Lovenox 40mg (06/08/25 10:00) Nitroglycerin Sublingual (Ntrostat Subli (06/07/25 22:45) Morphine Sulfate Injection (06/07/25:45) Oxygen By Nasal Cannula (06/07/25:39) Stat Ekg For Chest Pain (06/07/25 22:39) Notify Md Of Changes From Base (06/07/25 22:39) Pugger Helper For 24 Hours (06/07/25 22:39) Emergency Dysrhythmia Protocol (06/07/25 22:39) Rhythm Strips Once Every Shift (06/07/25 22:39) Vitamin D, 25-Hydroxy (06/07/25 22:42) Vitamin B12 (06/07/25 22:42) Thyroid Stimulating Hormone (06/07/25 22:42) Urinalysis (06/07/25 22:42) Phosphorus (06/07/25 22:42) Magnesium (06/07/25 22:42) Lipid Panel (06/07/25 22:42) Drug Screen (06/07/25 22:42) Hemoglobin A1c (06/07/25 22:42) Aspirin Tablet (06/08/25 10:00) Atorvastatin (Lipitor) (06/08/25 22:00) Electrocardigram (06/07/25 22:42) Vital Signs Date Time Temp Pulse Resp B/P (MAP) Pulse Ox O2 Delivery O2 Flow Rate FiO2 06/07/25 20:10 98.0 77 18 150/79 (102) 95 98.0 06/07/25 15:24 78 06/07/25 15:24 97.8 78 18 129/57 (81) 95 97.8 06/07/25 15:24 78 18 95 Room Air* 0 21 Laboratory Tests Test 06/07/25 13:00 White Blood Count 7.2 10^3/uL (4.4-10.8) Medications Medications Dose Ordered Sig/Luis F Route Start Time Stop Time Status Last Admin Dose Admin Enoxaparin Sodium 90 mg ONCE ONCE SC 06/07/25 14:30 06/07/25 14:31 DC 06/07/25 15:20 90 MG Sodium Chloride 1,000 ml @ 1,000 mls/hr Q1H ONCE IV 06/07/25 12:30 06/07/25 13:29 DC 06/07/25 13:03 1,000 MLS/HR Assessment/Plan Assessment/Plan ASSESSMENT RONALDO hemodynamically mediated (VMN) on CKD NSTEMI probable type 2 Chronic diastolic congestive heart failure (HFpEF, LVEF 60%) History of DVT Rule 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 Paroxysmal atrial fibrillation (chads Vasc 8) - secondary hypercoagulability state Mild mitral stenosis PAD status post percutaneous stent placement Thrombocytopenia Left Diabetic foot with history osteomyelitis s/p debridement and IV antibiotic treatment History of CVA Hypertension Dyslipidemia Diabetes PLAN Discontinued antihypertensive medication and diuretics at this point Completed echocardiogram on 03/2025 which shows LVEF 60%, severe LVH, can not exclude mild LVOT gradient, RV enlarged with normal function, moderate MAC, mild mitral stenosis mean gradient of 2 mmHg Patient was only on clopidogrel, discontinue Pradaxa for unknown reason. Patient currently on enoxaparin Ordered bilateral lower limb venous ultrasound and V/Q scan to rule out DVT and CTEPH Continue amiodarone Hold antihypertensive medication at this point due to soft blood pressures registered at home On insulin sliding scale and basal insulin units Ordered wound care and wound culture for left diabetic foot. Goals of care discussed with patient for over 18 minutes: Full code status Discussed plan with Dr. Miranda, patient and nurses: Patient admitted to telemetry. Generalized weakness, dyspnea, RONALDO and NSTEMI type II could be secondary to CTEPH (patient had RV enlargement, history DVT and was off of anticoagulation). Discontinued antihypertensive medication and diuretics. We will not ordered echocardiogram since he has a recent one done on March 2025. Patient is unstable for transferred to [place] Plan discussed with: Patient, Spouse, Other (Nurses) My Orders Orders - HAYDE CASTAÑEDA RESIDENT Procedure Category Date Status Time Admit ADMIT 06/07/25 Verified 22:39 Code Status CODE 06/07/25 Verified 22:39 Acetaminophen Tablet PHA 06/07/25 Verified (Tylenol Tablet) 22:45 Complete Blood Count LAB 06/08/25 Verified 04:00 Comprehensive LAB 06/08/25 Verified Metabolic Panel 04:00 Cardiac DIET 06/08/25 Verified Diet-2gna,Lofat,Lochol Breakfast Echo 2d Mode Cardiac US 06/07/25 Verified DOP 22:39 Lovenox 40mg [facility] 06/08/25 Verified 10:00 Nitroglycerin [facility] 06/07/25 Verified Sublingual (Ntrostat 22:45 Morphine Sulfate [facility] 06/07/25 Verified Injection 22:45 Oxygen By Nasal RT 06/07/25 Verified Cannula 22:39 Stat Ekg For Chest [facility] 06/07/25 Verified Pain 22:39 Notify Md Of Changes [facility] 06/07/25 Verified From Base 22:39 Pugger Helper For [facility] 06/07/25 Verified 24 Hours 22:39 Emergency Dysrhythmia [facility] 06/07/25 Verified Protocol 22:39 Rhythm Strips Once [facility] 06/07/25 Verified Every Shift 22:39 Vitamin D, 25-Hydroxy LAB 06/07/25 Verified 22:42 Vitamin B12 LAB 06/07/25 Verified 22:42 Thyroid Stimulating LAB 06/07/25 Verified Hormone 22:42 Urinalysis LAB 06/07/25 Verified 22:42 Phosphorus LAB 06/07/25 Verified 22:42 Magnesium LAB 06/07/25 Verified 22:42 Lipid Panel LAB 06/07/25 Verified 22:42 Drug Screen LAB 06/07/25 Verified 22:42 Hemoglobin A1c LAB 06/07/25 Verified 22:42 Aspirin Tablet PHA 06/08/25 Verified 10:00 Atorvastatin (Lipitor) PHA 06/08/25 Verified 22:00 Electrocardigram EKG 06/07/25 Verified 22:42 Date of Service: Jun 07, 2025 Billing Provider: ZOYA MIRANDA MD Common Visit Codes: [id number] INP/OBS CARE (HIGH) Secondary Visit Codes: [id number] CARE PLAN 30 MINUTES HAYDE CASTAÑEDA RESIDENT Jun 07, 2025 22:47
[2025-06-07 23:42] LABS: Magnesium 2.0 mg/dL (1.6-2.6); Triglycerides 83.0 mg/dL (< 150)
[2025-06-07 23:44] LABS: Cholesterol 142.0 mg/dL (< 200); HDL Cholesterol 48.0 mg/dL (40-59)
[2025-06-08] VITALS (7 sets, daily range): BP systolic 119–143; BP diastolic 47–67; PULSE 73–86; RESP 15–18; TEMP 97.7–98.8; O2SAT 92–96
[2025-06-08] MEDS ORDERED: CLOP75TA70 PO (02:47)
[2025-06-08 05:59] LABS: Hematocrit 42.3 % (41.0-53.0); Hemoglobin 14.1 g/dL (13.5-17.5); Mean Corpuscular Hemoglobin 30.4 pg (28.0-32.0); Mean Corpuscular Volume 91.3 fL (80.0-100.0); Nucleated Red Blood Cells % 0.1 %
[2025-06-08 06:04] LABS: Alanine Aminotransferase 31 U/L (7-40); Alkaline Phosphatase 63 U/L (46-116); Anion Gap 13 (5-15); BUN/Creatinine Ratio 16.4 (10.0-20.0); Carbon Dioxide 22 mmol/L (20-31); Potassium 4.2 mmol/L (3.5-5.1); Sodium 143 mmol/L (136-145); Total Protein 6.6 g/dL (5.7-8.2)
[2025-06-08 06:05] LABS: Albumin 3.5 g/dL (3.2-4.8)
[2025-06-08 06:06] LABS: Bilirubin, Total 0.7 mg/dL (0.2-1.0)
[2025-06-08 06:14] LABS: Blood Urea Nitrogen 47 mg/dL (9-23); Calcium 8.7 mg/dL (8.7-10.4); Chloride 108 mmol/L (98-107); Glucose 171 mg/dL (74-106)
[2025-06-08 07:10] LABS: Urine Protein, UAD 1+ (Negative)
[2025-06-08 07:28] LABS: Amphetamine Screen, Urine Neg (NEGATIVE); Barbiturate Scree,Urine Neg (NEGATIVE); Benzodiazephine Screen, Urine Neg (NEGATIVE); Cannabinoid Screen, Urine Neg (NEGATIVE); Cocaine Screen, Urine Neg (NEGATIVE); Opiate Scree,Urine Neg (NEGATIVE); Phencyclidine Screen, Urine Neg (NEGATIVE)
[2025-06-08] MEDS: ENOXAPARIN SOD 30 MG/0.3 ML SYRINGE SC SCH (08:50)
[2025-06-08] MEDS ORDERED: DEXTROSE (50%) 50ML SYRG IV PRN (09:45)
[2025-06-08] MEDS ORDERED: InsuLIN REG 1unit/0.01ml Soln (100units/ml)(for Drip) SC SCH (10:00)
--- NOTE | 2025-06-08 11:31 | DVHPN2 ---
Reviewed: H&P Changes from previous H/P or p: No Changes General: Per HPI Objective Vitals Vital Signs Date Time Temp Pulse Resp B/P (MAP) Pulse Ox O2 Delivery O2 Flow Rate FiO2 06/08/25 09:00 98.8 73 16 132/61 (84) 94 98.8 06/07/25 15:24 Room Air* 0 21 Intake/Output Intake and Output 06/08/25 07:00 Intake Total 1000 ml Balance 1000 ml Intake IV Total 1000 ml Exam General: Lucid, afebrile, mucosae are moist Cardiovascular: Normal S1 and S2. No murmurs, gallops or rubs Respiratory: Normal ventilation mechanics. Clear lung sounds on auscultation Abdomen: Soft, nontender, no organomegaly, normal bowel sounds MSK/skin: Mobilizes 4 limbs. Skin is dry and warm. Healed ulcer in medial aspect of left foot, fibrin is present, no purulent secretions nor erythema Neurological: Oriented in 3 spheres. No motor no sensitive deficits. Pupils are isocoric and reactive Medications Current Medications Medications Dose Ordered Sig/Luis F Route Start Time Stop Time Status Last Admin Dose Admin Acetaminophen 325 mg Q4HP PRN PO 06/07/25 22:45 Aspirin 81 mg DAILY PO 06/08/25 10:00 06/08/25 08:50 81 MG Atorvastatin Calcium 40 mg HS PO 06/08/25 22:00 Enoxaparin Sodium 90 mg DAILY SC 06/08/25 10:00 UNV Diagnostic Test (Pha) 1 strip Q6HR 06/08/25 12:00 Insulin Human Regular Q6HR SC 06/08/25 12:00 Dextrose 50 ml UD PRN IV 06/08/25 09:45 Amiodarone HCl 200 mg DAILY PO 06/08/25 10:00 Insulin Human NPH 25 units BID SC 06/08/25 10:00 UNV Insulin Human Regular 5 units BID SC 06/08/25 10:00 UNV Laboratory Results Laboratory Tests 06/08/25 04:51 Chemistry Test 06/07/25 13:00 06/07/25 17:45 06/08/25 04:51 Calcium Level 9.1 mg/dL (8.7-10.4) 8.7 mg/dL (8.7-10.4) Magnesium Level 2.0 mg/dL (1.6-2.6) Phosphorus Level 4.4 mg/dL (2.4-5.1) Albumin 3.5 g/dL (3.2-4.8) Total Protein 6.6 g/dL (5.7-8.2) Coagulation Test 06/08/25 11:20 Prothrombin Time Pending Prothrombin Time INR Pending Activated Partial Thromboplast Time Pending Lipid panel Test 06/07/25 17:45 Cholesterol Level 142 mg/dL (< 200) HDL Cholesterol 48 mg/dL (40-59) Triglycerides Level 83 mg/dL (< 150) LFT Test 06/08/25 04:51 Alanine Aminotransferase (ALT) 31 U/L (7-40) Alkaline Phosphatase 63 U/L (46-116) Aspartate Amino Transferase (AST) 30 U/L (13-40) Total Bilirubin 0.7 mg/dL (0.2-1.0) HgA1c, TSH Test 06/07/25 15:11 06/07/25 17:45 Hemoglobin A1c 6.8 % A1C (<5.7) H Thyroid Stimulating Hormone (TSH) 2.58 uIU/mL (0.55-4.78) Urinalysis Test 06/07/25 14:03 Urine Color Yellow (Yellow) Urine Clarity Clear (Clear) Urine pH 5.5 (5.0-9.0) Urine Specific [place] 1.019 (1.001-1.035) Urine Protein 1+ (Negative) H Urine Ketones Negative (Negative) Urine Blood Negative /uL (Negative) Urine Nitrite Negative (Negative) Urine Bilirubin Negative (Negative) Urine Urobilinogen Normal mg/dL (Negative) Urine Leukocyte Esterase Negative /uL (Negative) Urine RBC 3 /hpf (0 - 3) Urine Microscopic WBC 1 /HPF (0-3) Urine Squamous Epithelial Cells Few /hpf (<5) Urine Bacteria None seen /hpf (None Seen) Urine Hyaline Casts Few /lpf (0 - 2) Urine Glucose Normal mg/dL (Normal) Labs and/or images reviewed: Labs reviewed by me, Image(s) reviewed by me Assessment/Plan Assessment/Plan 89-year-old male patient who presents to ED with chief complaint of generalized weakness in functional class II associated with hypotension which started two days prior to his admission. Patient also complains of dyspnea in same functional class. Denies any sick contacts, recent travel, chest pain, bleeding or motor or sensory deficits. 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 06/08: 89-year-old male presenting with weakness. Low blood pressure. Given fluids blood pressure adequate now. Appears a little bradycardia. 50s. We will check for 6 minute walk test for chronotropic incompetence. We will start fluids normal saline 70 cc an hour continuous. Can check for flu COVID as well. Order PT as well. - patient has in bed for hitting head. Start fall risk precautions, get CT head. Cardiology eval for bradycardia ASSESSMENT RONALDO hemodynamically mediated (VMN) on CKD NSTEMI probable type 2 Chronic diastolic congestive heart failure (HFpEF, LVEF 60%) History of DVT Rule 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 Paroxysmal atrial fibrillation (chads Vasc 8) - secondary hypercoagulability state Mild mitral stenosis PAD status post percutaneous stent placement Thrombocytopenia Left Diabetic foot with history osteomyelitis s/p debridement and IV antibiotic treatment History of CVA Hypertension Dyslipidemia Diabetes PLAN Discontinued antihypertensive medication and diuretics at this point Completed echocardiogram on 03/2025 which shows LVEF 60%, severe LVH, can not exclude mild LVOT gradient, RV enlarged with normal function, moderate MAC, mild mitral stenosis mean gradient of 2 mmHg Patient was only on clopidogrel, discontinue Pradaxa for unknown reason. Patient currently on enoxaparin Ordered bilateral lower limb venous ultrasound and V/Q scan to rule out DVT and CTEPH Continue amiodarone Hold antihypertensive medication at this point due to soft blood pressures registered at home On insulin sliding scale and basal insulin units Ordered wound care and wound culture for left diabetic foot. tele full code Plan discussed with: Patient My Orders Orders - REED SALGADO MD Procedure Category Date Status Time Covid19 Antigen [facility] LAB 06/08/25 Logged Rapid Influenza A&B LAB 06/08/25 Logged 10:39 Date of Service: Jun 08, 2025 Billing Provider: REED SALGADO MD Common Visit Codes: [id number] INP/OBS CARE(HIGH) REED SALGADO MD Jun 08, 2025 11:31
[2025-06-08 11:50] LABS: INR 1.19 (0.9-1.15); Partial Thromboplastin Time 29.8 SEC (24.5-34.5); Prothrombin Time 12.4 sec (9.3-11.8)
--- NOTE | 2025-06-08 11:56 | DVH ---
Bilateral lower extremity venous duplex Clinical History: Bilateral limg swelling Comparison: US BILAT LOW EXT ART DUPLEX on DOS: 04/15/25, US BILAT LOWER DVT on DOS: 11/03/22 Technique: Duplex doppler evaluation of the deep venous systems of both lower extremities from the common femora l veins to the popliteal veins including color doppler and spectral/pulsed waveform analysis was perf ormed. Findings: RIGHT SIDE: The common femoral vein demonstrates appropriate compressibility and waveform variability. There is compressibility/patency of the great saphenous vein at the proximal thigh. The femoral vein demonstrates appropriate compressibility and waveform variability. The deep femoral vein demonstrates appropriate compressibility and waveform variability. The popliteal vein demonstrates appropriate compressibility and waveform variability. There is normal compressibility at the tibioperoneal trunk. LEFT SIDE: The common femoral vein demonstrates appropriate compressibility and waveform variability. There is compressibility/patency of the great saphenous vein at the proximal thigh. The femoral vein demonstrates appropriate compressibility and waveform variability. The deep femoral vein demonstrates appropriate compressibility and waveform variability. The popliteal vein demonstrates appropriate compressibility and waveform variability. There is normal compressibility at the tibioperoneal trunk. Impression: 1. No right or left femoropopliteal venous thrombosis.
[2025-06-08] MEDS: ACCU-CHEK COMFORT CURVE STRIP VI SCH (12:00)
[2025-06-08] MEDS: InsuLIN REG 1unit/0.01ml Soln (100units/ml) SC SCH (12:00)
--- NOTE | 2025-06-08 13:09 | DVH ---
CLINICAL HISTORY: head trauma TECHNIQUE: Helical imaging carried out from skull base to vertex without intravenous contrast. This e xam was performed according to our departmental dose optimization program. Up-to-date CT equipment an d radiation dose reduction techniques are utilized as appropriate. 53.99 CTDIVol: 53.99 mGy DLP: 863.9 mGy-cm WID: COMPARISON: CT HEAD WITHOUT CONTRAST on DOS: 04/15/25 FINDINGS: Generalized cerebral volume loss with concordant prominence of the subarachnoid spaces and ventricles . There is patchy mild low attenuation in the cerebral white matter consistent with nonspecific white matter disease. There is multifocal encephalomalacia presumably from remote infarcts in the left oc cipital lobe, posterior right parietal lobe, right frontal lobe. Tiny chronic infarct in the right ce rebellum. There is no midline shift or mass effect. The almaraz white matter interfaces are maintained. The basal cisterns are patent. There is no evidence of acute intracranial hemorrhage or extra-axial fluid mani ection. Small bilateral mastoid air cell effusions. The visualized paranasal sinuses are clear. Prio r ocular lens replacement. There is a small contusion in the lateral left parietal scalp. IMPRESSION: 1. No acute intracranial abnormality. 2. Small contusion in the lateral left parietal scalp. 3. Generalized cerebral volume loss and mild chronic microvascular ischemic change. 4. Multifocal remote infarcts in the left occipital, right parietal, and right frontal lobes. Tiny ch ronic infarct in the right cerebellum.
[2025-06-08 13:19] LABS: COVID19 ANTIGEN SOFIA FIA NEGATIVE (NEGATIVE)
[2025-06-08] MEDS: AMIODARONE HCL 200 MG TAB PO SCH (14:21)
[2025-06-08] MEDS: SODIUM CHLORIDE 0.9% 1,000 ML IV ONE (14:21)
--- NOTE | 2025-06-08 17:30 | DVHINCON2 ---
Date Seen: Jun 08, 2025 Referring Physician Jackie Reason for Consultation Bradycardia, mildly elevated troponins History of Present Illness 89-year-old male with PMH for HTN, HLD, diastolic HF, paroxysmal atrial fibrillation, CKD, PVD with previous PTCA stent left lower extremity on Plavix, DVT , CVA presents to the hospital with generalized weakness, low blood pressure. Per at bedside patient's blood pressure karel reaching down to the 90s and seemed to be fairly weak and out of it with no energy. Patient found to have mildly elevated troponins trending 112, 143, 162. Denies any chest pain , palpitations. Does endorse having some shortness of breath with exertion. Creatinine trending 2.5 2, 2.87. Past Medical History As stated above. Past Surgical History As stated above. Family History: Colon cancer Diabetes mellitus G8 FATHER Grandpa Social History Denies alcohol, tobacco, or illicit drug use Allergies: Coded Allergies: NO KNOWN ALLERGIES (Unverified , 08/16/15) Home Meds Reported Medications Clopidogrel Bisulfate (CLOPIDOGREL) 75 Mg Tab, 75 MG PO DAILY, TAB 06/08/25 Aspirin (Aspirin Low Dose) 81 Mg Chw, 1 TAB PO DAILY, #30 TAB 3 Refills 04/16/25 Insulin Regular (Human) (Humulin R) 100 Unit/Ml Inj, 5 UNIT SC BID, INJ 04/16/25 Insulin NPH (Human) (Isophane) (Humulin N) 100 Unit/Ml Inj, 25 UNIT SC BID, INJ 04/16/25 Atorvastatin Calcium (ATORVASTATIN CALCIUM) 20 Mg Tab, 1 TAB PO HS 04/15/25 Amiodarone HCl (Amiodarone HCl) 200 Mg Tab, 1 TAB PO DAILY 04/15/25 Hydralazine Hcl (Hydralazine Hcl) 50 Mg Tab, 1 TAB PO BID 11/03/22 Furosemide (Furosemide) 40 Mg Tab, 1 TAB PO DAILY 11/03/22 Current Medications Current Medications Medications (Trade) Dose Ordered Sig/Luis F Route PRN Reason Start Time Stop Time Status Last Admin Acetaminophen (Tylenol Tablet) 325 mg Q4HP PRN PO MILD PAIN (1-3 PAIN SCALE) 06/07/25 22:45 Enoxaparin Sodium (Lovenox) 30 mg DAILY SC 06/08/25 10:00 06/08/25 09:44 DC 06/08/25 08:50 Nitroglycerin (Ntrostat Sublingual) 0.4 mg Q5MINP PRN SL FOR CHEST PAIN 06/07/25 22:45 06/08/25 09:44 DC Morphine Sulfate 2 mg Q30M PRN IV FOR CHEST PAIN 06/07/25 22:45 06/08/25 09:44 DC Aspirin 81 mg DAILY PO 06/08/25 10:00 06/08/25 08:50 Atorvastatin Calcium (Lipitor) 40 mg HS PO 06/08/25 22:00 Enoxaparin Sodium (Lovenox) 90 mg DAILY SC 06/09/25 10:00 Diagnostic Test (Pha) (Accu-Chek Comfort Curve T) 1 strip Q6HR 06/08/25 12:00 Insulin Human Regular (InsuLIN R) Q6HR SC 06/08/25 12:00 Dextrose 50 ml UD PRN IV Blood Sugar LESS THAN 60 06/08/25 09:45 Amiodarone HCl (Cordarone Tablet) 200 mg DAILY PO 06/08/25 10:00 06/08/25 14:21 Patient Own Medication 25 BID SC 06/08/25 22:00 Insulin Human Regular (InsuLIN R) 5 units BID SC 06/08/25 10:00 Hold Review of Systems Constitutional: No: Fever, Chills, Sweats, Weakness, Malaise, Other Eyes: No: Pain, Vision change, Conjunctivae inflammation, Eyelid inflammation, Other, Redness ENT: No: Ear pain, Ear discharge, Nose pain, Nose discharge, Nose congestion, Mouth pain, Mouth swelling, Throat pain, Throat swelling, Other Respiratory: No: Cough, Dry, Shortness of breath, SOB with exertion, Wheezing, Hemoptysis, Pleuritic Pain, Sputum, Wheezing, Other Cardiovascular: ; No: Chest Pain Palpitations, Orthopnea, Paroxysmal Noc. Dyspnea, Edema, Lt Headedness, Other Gastrointestinal: No: Nausea, Vomiting, Abdominal Pain, Diarrhea, Constipation, Melena, Hematochezia, Other Genitourinary: No Dysuria, No Frequency, No Incontinence, No Hematuria, No Retention, No Other Musculoskeletal: neck pain; No: other, shoulder pain, arm pain, back pain, hand pain, leg pain, foot pain Skin: No: Rash, Lesions, Jaundice, Bruising, Other Neurological: Other (Dizziness, headache.); No: Weakness, Numbness, Incoordination, Change in speech, Confusion, Seizures Vital Signs Vital Signs Date Time Temp Pulse Resp B/P (MAP) Pulse Ox O2 Delivery O2 Flow Rate FiO2 06/08/25 13:00 98.4 78 15 122/52 (75) 93 98.4 06/07/25 15:24 Room Air* 0 21 Physical Exam General appearance: Patient is well-developed, well-nourished, in no acute distress. HEENT: Exam shows: Normocephalic, atraumatic, PERRLA, EOMI Neck: Supple, no bruits Chest: Equal chest excursion bilaterally. Breath sounds normal-no rales or wheezes. Heart: Rhythm: Regular rate; murmur Abdomen: Exam shows: Soft, nontender, nondistended Musculoskeletal: No clubbing, no cyanosis, no lower extremity edema Dermatology: Skin warm, moist. Neurological: Exam shows: Alert and oriented x4, normal speech Available prior records, labs, EKG, rhythm strips reviewed and interpreted Labs/Diagnostic Data Labs Test 06/08/25 11:30 06/08/25 11:20 06/08/25 04:51 06/07/25 17:45 Range/Units Influenza Type A Antigen Negative Negative Influenza Type B Antigen Negative Negative SARS-CoV-2 Antigen (Rapid) Negative NEGATIVE Prothrombin Time 12.4 H 9.3-11.8 sec Prothrombin Time INR 1.19 H 0.9-1.15 Activated Partial Thromboplast Time 29.8 24.5-34.5 SEC White Blood Count 7.2 4.4-10.8 10^3/uL Red Blood Count 4.63 4.5-5.90 10^6/uL Hemoglobin 14.1 13.5-17.5 g/dL Hematocrit 42.3 41.0-53.0 % Mean Corpuscular Volume 91.3 80.0-100.0 fL Mean Corpuscular Hemoglobin 30.4 28.0-32.0 pg Mean Corpuscular Hemoglobin Concent 33.3 32.0-36.0 g/dL Red Cell Distribution Width 14.3 11.8-14.3 % Platelet Count 103 L 140-450 10^3/uL Mean Platelet Volume 9.1 6.9-10.8 fL Neutrophils (%) (Auto) 54.0 37.0-80.0 % Lymphocytes (%) (Auto) 29.0 10.0-50.0 % Monocytes (%) (Auto) 15.4 H 0.0-12.0 % Eosinophils (%) (Auto) 1.1 0.0-7.0 % Basophils (%) (Auto) 0.5 0.0-2.0 % Neutrophils # (Auto) 3.9 1.6-8.6 10 ^3/uL Lymphocytes # (Auto) 2.1 0.4-5.4 10 ^3/uL Monocytes # (Auto) 1.1 0-1.3 10 ^3/uL Eosinophils # (Auto) 0.1 0-0.8 10 ^3/uL Basophils # (Auto) 0 0-0.2 10 ^3/uL Nucleated Red Blood Cells 0.1 % Sodium Level 143 136-145 mmol/L Potassium Level 4.2 3.5-5.1 mmol/L Chloride Level 108 H 98-107 mmol/L Carbon Dioxide Level 22 20-31 mmol/L Anion Gap 13 5-15 Blood Urea Nitrogen 47 H 9-23 mg/dL Creatinine 2.87 H 0.700-1.30 mg/dL Glomerular Filtration Rate Calc 20 >90 mL/min BUN/Creatinine Ratio 16.4 10.0-20.0 Serum Glucose 171 H 74-106 mg/dL Calcium Level 8.7 8.7-10.4 mg/dL Total Bilirubin 0.7 0.2-1.0 mg/dL Aspartate Amino Transferase (AST) 30 13-40 U/L Alanine Aminotransferase (ALT) 31 7-40 U/L Alkaline Phosphatase 63 46-116 U/L Total Protein 6.6 5.7-8.2 g/dL Albumin 3.5 3.2-4.8 g/dL Phosphorus Level 4.4 2.4-5.1 mg/dL Magnesium Level 2.0 1.6-2.6 mg/dL Troponin I High Sensitivity 162 *H </=54 ng/L Triglycerides Level 83 < 150 mg/dL Cholesterol Level 142 < 200 mg/dL LDL Cholesterol 78 < 100 mg/dL HDL Cholesterol 48 40-59 mg/dL Thyroid Stimulating Hormone (TSH) 2.58 0.55-4.78 uIU/mL Test 06/07/25 15:11 06/07/25 14:03 Range/Units Hemoglobin A1c 6.8 H <5.7 % A1C Vitamin B12 Level 435 211-911 pg/mL Vitamin D 25-Hydroxy 33.6 30.0-100 ng/mL Urine Color Yellow Yellow Urine Clarity Clear Clear Urine pH 5.5 5.0-9.0 Urine Specific [place] 1.019 1.001-1.035 Urine Protein 1+ H Negative Urine Ketones Negative Negative Urine Blood Negative Negative /uL Urine Nitrite Negative Negative Urine Bilirubin Negative Negative Urine Urobilinogen Normal Negative mg/dL Urine Leukocyte Esterase Negative Negative /uL Urine RBC 3 0 - 3 /hpf Urine Microscopic WBC 1 0-3 /HPF Urine Squamous Epithelial Cells Few <5 /hpf Urine Bacteria None seen None Seen /hpf Urine Hyaline Casts Few 0 - 2 /lpf Urine Glucose Normal Normal mg/dL Urine Opiates Screen Neg NEGATIVE Urine Fentanyl Screen Neg NEGATIVE Urine Barbiturates Screen Neg NEGATIVE Urine Phencyclidine Screen Neg NEGATIVE Urine Amphetamines Screen Neg NEGATIVE Urine Benzodiazepines Screen Neg NEGATIVE Urine Cocaine Screen Neg NEGATIVE Urine Cannabinoids Screen Neg NEGATIVE Assessment * Mildly Elevated Troponin - likely type 2 TX. Denies chest pain. Check EKG. Recent echo with normal EF severe LVH not exclude LVOT. Plan of care discussed with patient and at bedside, given poor kidney function and ass ess and chest pain/palpitations. We will continue conservative medical management. Continue aspirin and statin. * Sinus Bradycardia - positive chronotropic response walking from [facility] to [facility]. Currently resolved on assessment. Continue Amiodarone 200 mg p.o. daily for now, not on AV shaun blockers hold for HR<55. Normal TSH. No AV blocks or pauses noted. Patient would benefit from outpatient event monitoring. * RONALDO on CKD - management per primary team, * Chronic HFpEF - home dose Lasix held, continue monitoring fluid volume status with IV fluid hydration. * Paroxysmal atrial fibrillation - currently sinus. Continue telemetry monitoring. Continue amiodarone. Not on anticoagulation therapy. High [id number] Vasc score. On full-dose Lovenox, resume Pradaxa on DC. * HTN - patient's BP was marginal as reported by at home. Initial bpm presentation 146/69, currently BP stable off meds continue monitoring. * HLD continue statin. * HX Diabetic foot wound/osteomyelitis with recent debridement on IV antibiotics * Dyspnea on exertion - repeat echo pending. Case Discussed with Dr Schaeffer. Sinus bradycardia resolved currently on assessmen t, patient and watch from [facility] in a gurney with good chronotropic response no shortness of breath. TSH normal. Mildly elevated troponins trending stable, denies chest pain. Plan of care discussed with patient at bedside we will continue with conservative medical management given poor kidney function, no chest pain. No signs of reported hypotension on review, continue BP monitoring. Patient may benefit from outpatient event monitoring. Continue amiodarone. Patient has repeat echocardiogram ordered, if no significant abnormalities or changes noted no further cardiac workup indicated at this time. Critical care, time spent: 40 minutes This medical document was created using an electronic medical record system with voice recognition software and computerized dictation system. Although this document has been carefully reviewed, there might still be some phonetic and typographical errors. Occasional wrong-word or ``sound-alike substitutions may have occurred due to the inherent limitations of voice recognition software. These areas are purely typographical due to imperfections of the software programs and do not reflect any compromise in the patient's medical care. Please read the chart carefully and recognize, using context, where these subst itutions have occurred. Thank you for allowing me to participate in the management of this patient. The treatment plan was discussed with and agreed upon by patient/family including requesting consultants and ordering of imaging/procedures. Plan discussed with: Patient, Spouse NYHA Physical activity limitations: Class2(Slight)fatigue,sob Date of Service: Jun 08, 2025 Billing Provider: ISIAH CANTU Cardiology Common Codes: [id number] INP/OBS CARE (High), [id number] CARE 30-74 MIN ISIAH CANTU Jun 08, 2025 17:30
[2025-06-08] MEDS: INSULIN NPH Isophane (HUMAN) 1unit/0.01ml Susp(100units/ml) SC SCH (22:00)
[2025-06-08] MEDS: ATORVASTATIN 20 MG TAB PO SCH (22:45)
[2025-06-09] VITALS (8 sets, daily range): BP systolic 135–168; BP diastolic 63–78; PULSE 69–77; RESP 17–20; TEMP 97.9–99; O2SAT 92–99
[2025-06-09 05:59] LABS: Hematocrit 41.4 % (41.0-53.0); Hemoglobin 14.0 g/dL (13.5-17.5); Mean Corpuscular Hemoglobin 30.8 pg (28.0-32.0); Mean Corpuscular Volume 91.3 fL (80.0-100.0); Nucleated Red Blood Cells % 0.1 %
[2025-06-09 06:33] LABS: Alanine Aminotransferase 32 U/L (7-40); Albumin 3.5 g/dL (3.2-4.8); Alkaline Phosphatase 64 U/L (46-116); Anion Gap 11 (5-15); BUN/Creatinine Ratio 19.7 (10.0-20.0); Carbon Dioxide 23 mmol/L (20-31); Glucose 101 mg/dL (74-106); Potassium 4.3 mmol/L (3.5-5.1); Sodium 144 mmol/L (136-145); Total Protein 6.6 g/dL (5.7-8.2)
[2025-06-09 06:34] LABS: Bilirubin, Total 0.7 mg/dL (0.2-1.0)
[2025-06-09 06:38] LABS: Blood Urea Nitrogen 45 mg/dL (9-23); Calcium 8.7 mg/dL (8.7-10.4); Chloride 110 mmol/L (98-107)
[2025-06-09] MEDS: ENOXAPARIN SOD 100 MG/1 ML SYRINGE SC SCH (10:11)
--- NOTE | 2025-06-09 10:35 | ECG ---
[facility] Test Date: 2025-06-08 Test Time: 11:13:24 Pat Name: AYANA HUSSEIN Department: Respiratoy Room: 0220T A Gender: M [employer]: : [id number] Requested By: ISIAH CANTU Order Number: [id number] Reading MD: Lupillo Schaeffer Measurements Intervals [place] Rate: 77 P: 244 MT: 243 QRS: -56 QRSD: 133 T: 109 QT: 482 QTc: 546 Interpretive Statements Sinus or ectopic atrial rhythm Prolonged MT interval Nonspecific IVCD with LAD LVH with secondary repolarization abnormality Baseline wander in lead(s) V3 Electronically Signed On 06-09-2025 16:59:59 PDT by Lupillo Schaeffer Please click the below link to view image of tracing.
--- NOTE | 2025-06-09 10:44 | DVHPN2 ---
Reviewed: H&P Changes from previous H/P or p: No Changes General: Per HPI Objective Vitals Vital Signs Date Time Temp Pulse Resp B/P (MAP) Pulse Ox O2 Delivery O2 Flow Rate FiO2 06/09/25 08:36 98.2 71 20 135/63 (87) 99 98.2 06/09/25 08:00 Room Air* 0 21 Intake/Output Intake and Output 06/09/25 07:00 Intake Total 1540 ml Output Total 400 ml Balance 1140 ml Intake Oral 1540 ml Output Urine Total 400 ml # Voids 3 # Bowel Movements 2 Exam General: Lucid, afebrile, mucosae are moist Cardiovascular: Normal S1 and S2. No murmurs, gallops or rubs Respiratory: Normal ventilation mechanics. Clear lung sounds on auscultation Abdomen: Soft, nontender, no organomegaly, normal bowel sounds MSK/skin: Mobilizes 4 limbs. Skin is dry and warm. Healed ulcer in medial aspect of left foot, fibrin is present, no purulent secretions nor erythema Neurological: Oriented in 3 spheres. No motor no sensitive deficits. Pupils are isocoric and reactive Medications Current Medications Medications Dose Ordered Sig/Luis F Route Start Time Stop Time Status Last Admin Dose Admin Acetaminophen 325 mg Q4HP PRN PO 06/07/25 22:45 Aspirin 81 mg DAILY PO 06/08/25 10:00 06/09/25 10:10 81 MG Atorvastatin Calcium 40 mg HS PO 06/08/25 22:00 06/08/25 22:45 40 MG Enoxaparin Sodium 90 mg DAILY SC 06/09/25 10:00 06/09/25 10:11 90 MG Diagnostic Test (Pha) 1 strip Q6HR 06/08/25 12:00 06/09/25 05:48 1 STRIP Insulin Human Regular Q6HR SC 06/08/25 12:00 06/09/25 00:00 4 UNITS Dextrose 50 ml UD PRN IV 06/08/25 09:45 Amiodarone HCl 200 mg DAILY PO 06/08/25 10:00 06/09/25 10:10 200 MG Patient Own Medication 25 BID SC 06/08/25 22:00 Insulin Human Regular 5 units BID SC 06/08/25 10:00 Hold Laboratory Results Laboratory Tests 06/09/25 05:00 Chemistry Test 06/09/25 05:00 Albumin 3.5 g/dL (3.2-4.8) Calcium Level 8.7 mg/dL (8.7-10.4) Total Protein 6.6 g/dL (5.7-8.2) Coagulation Test 06/08/25 11:20 Prothrombin Time 12.4 sec (9.3-11.8) H Prothrombin Time INR 1.19 (0.9-1.15) H Activated Partial Thromboplast Time 29.8 SEC (24.5-34.5) LFT Test 06/09/25 05:00 Alanine Aminotransferase (ALT) 32 U/L (7-40) Alkaline Phosphatase 64 U/L (46-116) Aspartate Amino Transferase (AST) 39 U/L (13-40) Total Bilirubin 0.7 mg/dL (0.2-1.0) Urinalysis Test 06/07/25 14:03 Urine Color Yellow (Yellow) Urine Clarity Clear (Clear) Urine pH 5.5 (5.0-9.0) Urine Specific [place] 1.019 (1.001-1.035) Urine Protein 1+ (Negative) H Urine Ketones Negative (Negative) Urine Blood Negative /uL (Negative) Urine Nitrite Negative (Negative) Urine Bilirubin Negative (Negative) Urine Urobilinogen Normal mg/dL (Negative) Urine Leukocyte Esterase Negative /uL (Negative) Urine RBC 3 /hpf (0 - 3) Urine Microscopic WBC 1 /HPF (0-3) Urine Squamous Epithelial Cells Few /hpf (<5) Urine Bacteria None seen /hpf (None Seen) Urine Hyaline Casts Few /lpf (0 - 2) Urine Glucose Normal mg/dL (Normal) Microbiology Microbiology Date/Time Source Procedure Growth Status 06/08/25 18:30 Foot Gram Stain Pending Resulted 06/08/25 18:30 Foot Wound Culture - Preliminary Resulted Labs and/or images reviewed: Labs reviewed by me, Image(s) reviewed by me Assessment/Plan Assessment/Plan 89-year-old male patient who presents to ED with chief complaint of generalized weakness in functional class II associated with hypotension which started two days prior to his admission. Patient also complains of dyspnea in same functional class. Denies any sick contacts, recent travel, chest pain, bleeding or motor or sensory deficits. 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 06/08: 89-year-old male presenting with weakness. Low blood pressure. Given fluids blood pressure adequate now. Appears a little bradycardia. 50s. We will check for 6 minute walk test for chronotropic incompetence. We will start fluids normal saline 70 cc an hour continuous. Can check for flu COVID as well. Order PT as well. - patient has in bed for hitting head. Start fall risk precautions, get CT head. Cardiology eval for bradycardia 06/09: CT head showing old infarcts. Today he is working well with PT. We will do 6 in a walk test flu test for chronotropic competence today. Tolerating p.o., suggest oral hydration. Continue NPH 20 b.i.d. plus sliding scale mild a.c. HS. Hypoglycemic protocol to continue. ASSESSMENT RONALDO hemodynamically mediated (VMN) on CKD NSTEMI probable type 2 Chronic diastolic congestive heart failure (HFpEF, LVEF 60%) History of DVT Rule 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 Paroxysmal atrial fibrillation (chads Vasc 8) - secondary hypercoagulability state Mild mitral stenosis PAD status post percutaneous stent placement Thrombocytopenia Left Diabetic foot with history osteomyelitis s/p debridement and IV antibiotic treatment History of CVA Hypertension Dyslipidemia Diabetes PLAN Discontinued antihypertensive medication and diuretics at this point Completed echocardiogram on 03/2025 which shows LVEF 60%, severe LVH, can not exclude mild LVOT gradient, RV enlarged with normal function, moderate MAC, mild mitral stenosis mean gradient of 2 mmHg Patient was only on clopidogrel, discontinue Pradaxa for unknown reason. Patient currently on enoxaparin Ordered bilateral lower limb venous ultrasound and V/Q scan to rule out DVT and CTEPH Continue amiodarone Hold antihypertensive medication at this point due to soft blood pressures registered at home On insulin sliding scale and basal insulin units Ordered wound care and wound culture for left diabetic foot. tele full code Plan discussed with: Patient My Orders Orders - REED SALGADO MD Procedure Category Date Status Time Pt Request For Service PT 06/08/25 Logged 11:41 Orthostatic Vital ORDERS 06/08/25 Transmitted Signs 11:41 * Cardiology Consult CONS 06/08/25 Transmitted 11:[address] 06/08/25 Resulted 12:16 Date of Service: Jun 09, 2025 Billing Provider: REED SALGADO MD Common Visit Codes: [id number] INP/OBS CARE(HIGH) REED SALGADO MD Jun 09, 2025 10:44
--- NOTE | 2025-06-09 10:50 | DVHPN2 ---
Consult Progress Note Subjective Patient reports: No new complaints, Feels better Objective vital signs Vital Sign Date Time Temp Pulse Resp B/P (MAP) Pulse Ox O2 Delivery O2 Flow Rate FiO2 06/09/25 08:36 98.2 71 20 135/63 (87) 99 98.2 06/09/25 08:00 Room Air* 0 21 Total Intake and Output 06/08/25 06/08/25 06/09/25 15:00 23:00 07:00 Intake Total 1340 ml 200 ml Output Total 400 ml Balance 1340 ml -200 ml medications Current Medications Medications Dose Ordered Sig/Luis F Route Start Time Stop Time Status Last Admin Dose Admin Acetaminophen 325 mg Q4HP PRN PO 06/07/25 22:45 Aspirin 81 mg DAILY PO 06/08/25 10:00 06/09/25 10:10 81 MG Atorvastatin Calcium 40 mg HS PO 06/08/25 22:00 06/08/25 22:45 40 MG Enoxaparin Sodium 90 mg DAILY SC 06/09/25 10:00 06/09/25 10:11 90 MG Diagnostic Test (Pha) 1 strip Q6HR 06/08/25 12:00 06/09/25 05:48 1 STRIP Insulin Human Regular Q6HR SC 06/08/25 12:00 06/09/25 00:00 4 UNITS Dextrose 50 ml UD PRN IV 06/08/25 09:45 Amiodarone HCl 200 mg DAILY PO 06/08/25 10:00 06/09/25 10:10 200 MG Patient Own Medication 20 BID SC 06/09/25 22:00 UNV laboratory and microbiology Laboratory Tests 06/09/25 05:00 Test 06/09/25 05:00 Range/Units Serum Glucose 101 74-106 mg/dL Problem List/Assessment/Plan Problem List/Assessment/Plan Assessment * Mildly Elevated Troponin - likely type 2 [place]. Denies chest pain. EKG negative for acute ischemic changes. Recent echo with normal EF severe LVH could not exclude LVOT. Plan of care discussed with patient and at bedside, given poor kidney function and no episodes of cardiac symptoms of chest pain/palpitations. Plan to continue conservative medical management. Continue aspirin and statin. * Sinus Bradycardia - positive chronotropic response walking [facility]. Currently resolved on assessment. Continue Amiodarone 200 mg p.o. daily for now, not on AV shaun blockers hold for HR<55. Normal TSH. No AV blocks or pauses noted. Patient would benefit from outpatient event monitoring. * RONALDO on CKD - management per primary team, * Chronic HFpEF - home dose Lasix held, continue monitoring fluid volume status with IV fluid hydration. * Paroxysmal atrial fibrillation - currently sinus. Continue telemetry monitoring. Continue amiodarone. Not on anticoagulation therapy. High [id number] Vasc score. On full-dose Lovenox, resume Pradaxa on DC. * HTN - patient's BP was marginal as reported by at home. Initial bpm presentation 146/69, currently BP stable off meds continue monitoring. * HLD continue statin. * HX Diabetic foot wound/osteomyelitis with recent debridement on IV antibiotics * Dyspnea on exertion - repeat echo pending. Case Discussed with Dr Schaeffer. No overnight episodes of sinus bradycardia, significant arrhythmias or pauses. TSH normal. Mildly elevated troponins trending stable, denies chest pain. Plan of care discussed with patient at bedside we will continue with conservative medical management given poor kidney function, no chest pain. No signs of reported hypotension on review, continue BP monitoring. Patient may benefit from outpatient event monitoring. Continue amiodarone hold for HR <55 bpm.. Patient has repeat echocardiogram ordered, if no significant abnormalities or changes noted no further cardiac workup indicated at this time. Critical care, time spent: 40 minutes This medical document was created using an electronic medical record system with voice recognition software and computerized dictation system. Although this document has been carefully reviewed, there might still be some phonetic and typographical errors. Occasional wrong-word or ``sound-alike substitutions may have occurred due to the inherent limitations of voice recognition software. These areas are purely typographical due to imperfections of the software programs and do not reflect any compromise in the patient's medical care. Please read the chart carefully and recognize, using context, where these substitutions have occurred. Thank you for allowing me to participate in the management of this patient. The treatment plan was discussed with and agreed upon by patient/family including requesting consultants and ordering of imaging/procedures. Plan discussed with: Patient Date of Service: Jun 09, 2025 Billing Provider: ISIAH CANTU Common Visit Codes: [id number] INP/OBS CARE(HIGH), [id number] CARE 30-74 MIN ISIAH CANTUCNP Jun 09, 2025 10:50
[2025-06-09] MEDS: INSULIN NPH Isophane (HUMAN) 1unit/0.01ml Susp(100units/ml) SC SCH (21:57)
[2025-06-09] MEDS: hydrALAZINE HCL 20 MG/ML VL IV ONE (22:37)
[2025-06-10] VITALS (7 sets, daily range): BP systolic 118–179; BP diastolic 64–85; PULSE 54–74; RESP 14–18; TEMP 96.8–98.5; O2SAT 94–100
[2025-06-10 07:03] LABS: Hematocrit 39.8 % (41.0-53.0); Hemoglobin 13.5 g/dL (13.5-17.5); Mean Corpuscular Hemoglobin 30.5 pg (28.0-32.0); Mean Corpuscular Volume 90.0 fL (80.0-100.0)
[2025-06-10 07:16] LABS: Alanine Aminotransferase 26 U/L (7-40); Albumin 3.3 g/dL (3.2-4.8); Alkaline Phosphatase 60 U/L (46-116); Anion Gap 10 (5-15); BUN/Creatinine Ratio 18.8 (10.0-20.0); Carbon Dioxide 26 mmol/L (20-31); Potassium 4.0 mmol/L (3.5-5.1); Sodium 145 mmol/L (136-145); Total Protein 6.3 g/dL (5.7-8.2)
[2025-06-10 07:17] LABS: Bilirubin, Total 0.9 mg/dL (0.2-1.0)
[2025-06-10 07:19] LABS: Blood Urea Nitrogen 31 mg/dL (9-23); Calcium 8.6 mg/dL (8.7-10.4); Chloride 109 mmol/L (98-107); Glucose 63 mg/dL (74-106)
[2025-06-10 08:57] LABS: RBC Morphology Normal; Total Cells Counted 100.0 (100)
--- NOTE | 2025-06-10 13:25 | DVHPN2 ---
Reviewed: H&P Changes from previous H/P or p: No Changes General: Per HPI Objective Vitals Vital Signs Date Time Temp Pulse Resp B/P (MAP) Pulse Ox O2 Delivery O2 Flow Rate FiO2 06/10/25 08:46 98.2 74 16 141/76 (97) 94 98.2 06/10/25 08:00 Room Air* 0 21 Intake/Output Intake and Output 06/10/25 07:00 Intake Total 750 ml Balance 750 ml Intake Oral 750 ml # Voids 5 # Bowel Movements 2 Exam General: Lucid, afebrile, mucosae are moist Cardiovascular: Normal S1 and S2. No murmurs, gallops or rubs Respiratory: Normal ventilation mechanics. Clear lung sounds on auscultation Abdomen: Soft, nontender, no organomegaly, normal bowel sounds MSK/skin: Mobilizes 4 limbs. Skin is dry and warm. Healed ulcer in medial aspect of left foot, fibrin is present, no purulent secretions nor erythema Neurological: Oriented in 3 spheres. No motor no sensitive deficits. Pupils are isocoric and reactive Medications Current Medications Medications Dose Ordered Sig/Luis F Route Start Time Stop Time Status Last Admin Dose Admin Acetaminophen 325 mg Q4HP PRN PO 06/07/25 22:45 Aspirin 81 mg DAILY PO 06/08/25 10:00 06/10/25 09:48 81 MG Atorvastatin Calcium 40 mg HS PO 06/08/25 22:00 06/09/25 21:56 40 MG Enoxaparin Sodium 90 mg DAILY SC 06/09/25 10:00 06/10/25 09:49 90 MG Diagnostic Test (Pha) 1 strip Q6HR 06/08/25 12:00 06/10/25 12:07 1 STRIP Insulin Human Regular Q6HR SC 06/08/25 12:00 06/10/25 12:08 2 UNITS Dextrose 50 ml UD PRN IV 06/08/25 09:45 Amiodarone HCl 200 mg DAILY PO 06/08/25 10:00 06/10/25 09:48 200 MG Patient Own Medication 20 BID SC 06/09/25 22:00 06/10/25 09:51 20 Laboratory Results Laboratory Tests 06/10/25 04:21 Chemistry Test 06/10/25 04:21 Albumin 3.3 g/dL (3.2-4.8) Calcium Level 8.6 mg/dL (8.7-10.4) L Total Protein 6.3 g/dL (5.7-8.2) LFT Test 06/10/25 04:21 Alanine Aminotransferase (ALT) 26 U/L (7-40) Alkaline Phosphatase 60 U/L (46-116) Aspartate Amino Transferase (AST) 36 U/L (13-40) Total Bilirubin 0.9 mg/dL (0.2-1.0) Urinalysis Test 06/07/25 14:03 Urine Color Yellow (Yellow) Urine Clarity Clear (Clear) Urine pH 5.5 (5.0-9.0) Urine Specific [place] 1.019 (1.001-1.035) Urine Protein 1+ (Negative) H Urine Ketones Negative (Negative) Urine Blood Negative /uL (Negative) Urine Nitrite Negative (Negative) Urine Bilirubin Negative (Negative) Urine Urobilinogen Normal mg/dL (Negative) Urine Leukocyte Esterase Negative /uL (Negative) Urine RBC 3 /hpf (0 - 3) Urine Microscopic WBC 1 /HPF (0-3) Urine Squamous Epithelial Cells Few /hpf (<5) Urine Bacteria None seen /hpf (None Seen) Urine Hyaline Casts Few /lpf (0 - 2) Urine Glucose Normal mg/dL (Normal) Microbiology Microbiology Date/Time Source Procedure Growth Status 06/08/25 18:30 Foot Gram Stain - Final Resulted 06/08/25 18:30 Foot Wound Culture - Preliminary Resulted Labs and/or images reviewed: Labs reviewed by me, Image(s) reviewed by me Assessment/Plan Assessment/Plan 89-year-old male patient who presents to ED with chief complaint of generalized weakness in functional class II associated with hypotension which started two days prior to his admission. Patient also complains of dyspnea in same functional class. Denies any sick contacts, recent travel, chest pain, bleeding or motor or sensory deficits. 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 06/08: 89-year-old male presenting with weakness. Low blood pressure. Given fluids blood pressure adequate now. Appears a little bradycardia. 50s. We will check for 6 minute walk test for chronotropic incompetence. We will start fluids normal saline 70 cc an hour continuous. Can check for flu COVID as well. Order PT as well. - patient has in bed for hitting head. Start fall risk precautions, get CT head. Cardiology eval for bradycardia 06/09: CT head showing old infarcts. Today he is working well with PT. We will do 6 in a walk test flu test for chronotropic competence today. Tolerating p.o., suggest oral hydration. Continue NPH 20 b.i.d. plus sliding scale mild a.c. HS. Hypoglycemic protocol to continue. 06/10: Patient significantly improved, PT only recommending front wheel walker. We will check orthostatics and sigmoid walk test today. Per cardiology holding amiodarone. Last echocardiogram on March 2025. was 60% and severe LVH. RV enlarged. Mild mitral stenosis. If patient does well with orthostatics and 6 minute walk test, possible discharge today. ASSESSMENT RONALDO hemodynamically mediated (VMN) on CKD NSTEMI probable type 2 Chronic diastolic congestive heart failure (HFpEF, LVEF 60%) History of DVT Rule 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 Paroxysmal atrial fibrillation (chads Vasc 8) - secondary hypercoagulability state Mild mitral stenosis PAD status post percutaneous stent placement Thrombocytopenia Left Diabetic foot with history osteomyelitis s/p debridement and IV antibiotic treatment History of CVA Hypertension Dyslipidemia Diabetes PLAN Discontinued antihypertensive medication and diuretics at this point Completed echocardiogram on 03/2025 which shows LVEF 60%, severe LVH, can not exclude mild LVOT gradient, RV enlarged with normal function, moderate MAC, mild mitral stenosis mean gradient of 2 mmHg Patient was only on clopidogrel, discontinue Pradaxa for unknown reason. Patient currently on enoxaparin Ordered bilateral lower limb venous ultrasound and V/Q scan to rule out DVT and CTEPH Continue amiodarone Hold antihypertensive medication at this point due to soft blood pressures registered at home On insulin sliding scale and basal insulin units Ordered wound care and wound culture for left diabetic foot. tele full code Plan discussed with: Patient Date of Service: Jun 10, 2025 Billing Provider: REED SALGADO MD Common Visit Codes: [id number] INP/OBS CARE(HIGH) REED SALGADO MD Jun 10, 2025 13:25
--- NOTE | 2025-06-10 14:01 | DVH ---
NUCLEAR MEDICINE VENTILATION/PERFUSION LUNG SCAN. INDICATION: PULMONARY EMBOLISM TECHNIQUE: Following intravenous demonstration of 6 millicuries of technetium 99m MAA, and inhalati on of 40 mCi of Tc 99m DTPA scintigrams were obtained in multiple projections of the lungs. FINDINGS: There is normal uptake of radionuclide on both the ventilation and perfusion portions of the examinat ion. No mismatched perfusion defects are demonstrated. Uptake is normally homogeneous. IMPRESSION: Low probability for PE.
--- NOTE | 2025-06-10 17:49 | DVHDS2 ---
Discharge Summary Date of Admission Jun 07, 2025 at 22:39 Date of Discharge: Jun 10, 2025 Labs/Diagnostic Data: Laboratory Results Test 06/10/25 16:58 06/10/25 04:21 06/09/25 05:00 06/08/25 11:30 POC Glucose 70 mg/dl (70-106) White Blood Count 6.9 10^3/uL (4.4-10.8) Red Blood Count 4.42 10^6/uL (4.5-5.90) Hemoglobin 13.5 g/dL (13.5-17.5) Hematocrit 39.8 % (41.0-53.0) Mean Corpuscular Volume 90.0 fL (80.0-100.0) Mean Corpuscular Hemoglobin 30.5 pg (28.0-32.0) Mean Corpuscular Hemoglobin Concent 33.9 g/dL (32.0-36.0) Red Cell Distribution Width 14.5 % (11.8-14.3) Platelet Count 118 10^3/uL (140-450) Mean Platelet Volume 9.0 fL (6.9-10.8) Neutrophils (%) (Auto) % (37.0-80.0) Lymphocytes (%) (Auto) % (10.0-50.0) Monocytes (%) (Auto) % (0.0-12.0) Basophils (%) (Auto) % (0.0-2.0) Neutrophils # (Auto) 10 ^3/uL (1.6-8.6) Lymphocytes # (Auto) 10 ^3/uL (0.4-5.4) Monocytes # (Auto) 10 ^3/uL (0-1.3) Differential Total Cells Counted 100.0 (100) Neutrophils % (Manual) 44 (37.0-80.0) Band Neutrophils % (Manual) 2 Lymphocytes % (Manual) 31 (10.0-50.0) Monocytes % (Manual) 19 (0-12) Eosinophils % (Manual) 4 (0-7) Basophils % (Manual) 0 (0.0-2.0) Metamyelocytes % (manual) 0 Myelocytes % (Manual) 0 Promyelocytes % (Manual) 0 Blast Cells % (Manual) 0 Reactive Lymphocytes 0 Platelet Estimate Decreased Red Blood Cell Morphology Normal Sodium Level 145 mmol/L (136-145) Potassium Level 4.0 mmol/L (3.5-5.1) Chloride Level 109 mmol/L (98-107) Carbon Dioxide Level 26 mmol/L (20-31) Anion Gap 10 (5-15) Blood Urea Nitrogen 31 mg/dL (9-23) Creatinine 1.65 mg/dL (0.700-1.30) Glomerular Filtration Rate Calc 39 mL/min (>90) BUN/Creatinine Ratio 18.8 (10.0-20.0) Serum Glucose 63 mg/dL (74-106) Calcium Level 8.6 mg/dL (8.7-10.4) Total Bilirubin 0.9 mg/dL (0.2-1.0) Aspartate Amino Transferase (AST) 36 U/L (13-40) Alanine Aminotransferase (ALT) 26 U/L (7-40) Alkaline Phosphatase 60 U/L (46-116) Total Protein 6.3 g/dL (5.7-8.2) Albumin 3.3 g/dL (3.2-4.8) Eosinophils (%) (Auto) 3.5 % (0.0-7.0) Eosinophils # (Auto) 0.3 10 ^3/uL (0-0.8) Basophils # (Auto) 0.1 10 ^3/uL (0-0.2) Nucleated Red Blood Cells 0.1 % Influenza Type A Antigen Negative (Negative) Influenza Type B Antigen Negative (Negative) SARS-CoV-2 Antigen (Rapid) Negative (NEGATIVE) Test 06/08/25 11:20 06/07/25 17:45 06/07/25 15:11 06/07/25 14:03 Prothrombin Time 12.4 sec (9.3-11.8) Prothrombin Time INR 1.19 (0.9-1.15) Activated Partial Thromboplast Time 29.8 SEC (24.5-34.5) Phosphorus Level 4.4 mg/dL (2.4-5.1) Magnesium Level 2.0 mg/dL (1.6-2.6) Troponin I High Sensitivity 162 ng/L (</=54) Triglycerides Level 83 mg/dL (< 150) Cholesterol Level 142 mg/dL (< 200) LDL Cholesterol 78 mg/dL (< 100) HDL Cholesterol 48 mg/dL (40-59) Thyroid Stimulating Hormone (TSH) 2.58 uIU/mL (0.55-4.78) Hemoglobin A1c 6.8 % A1C (<5.7) Vitamin B12 Level 435 pg/mL (211-911) Vitamin D 25-Hydroxy 33.6 ng/mL (30.0-100) Urine Color Yellow (Yellow) Urine Clarity Clear (Clear) Urine pH 5.5 (5.0-9.0) Urine Specific [place] 1.019 (1.001-1.035) Urine Protein 1+ (Negative) Urine Ketones Negative (Negative) Urine Blood Negative /uL (Negative) Urine Nitrite Negative (Negative) Urine Bilirubin Negative (Negative) Urine Urobilinogen Normal mg/dL (Negative) Urine Leukocyte Esterase Negative /uL (Negative) Urine RBC 3 /hpf (0 - 3) Urine Microscopic WBC 1 /HPF (0-3) Urine Squamous Epithelial Cells Few /hpf (<5) Urine Bacteria None seen /hpf (None Seen) Urine Hyaline Casts Few /lpf (0 - 2) Urine Glucose Normal mg/dL (Normal) Urine Opiates Screen Neg (NEGATIVE) Urine Fentanyl Screen Neg (NEGATIVE) Urine Barbiturates Screen Neg (NEGATIVE) Urine Phencyclidine Screen Neg (NEGATIVE) Urine Amphetamines Screen Neg (NEGATIVE) Urine Benzodiazepines Screen Neg (NEGATIVE) Urine Cocaine Screen Neg (NEGATIVE) Urine Cannabinoids Screen Neg (NEGATIVE) Other Laboratory Tests 06/10/25 04:21 Brief Hx & Hospital Course: 89-year-old male patient who presents to ED with chief complaint of generalized weakness in functional class II associated with hypotension which started two days prior to his admission. Patient also complains of dyspnea in same functional class. Denies any sick contacts, recent travel, chest pain, bleeding or motor or sensory deficits. 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 06/08: 89-year-old male presenting with weakness. Low blood pressure. Given fluids blood pressure adequate now. Appears a little bradycardia. 50s. We will check for 6 minute walk test for chronotropic incompetence. We will start fluids normal saline 70 cc an hour continuous. Can check for flu COVID as well. Order PT as well. - patient has in bed for hitting head. Start fall risk precautions, get CT head. Cardiology eval for bradycardia 06/09: CT head showing old infarcts. Today he is working well with PT. We will do 6 in a walk test flu test for chronotropic competence today. Tolerating p.o., suggest oral hydration. Continue NPH 20 b.i.d. plus sliding scale mild a.c. HS. Hypoglycemic protocol to continue. 06/10: Patient significantly improved, PT only recommending front wheel walker. We will check orthostatics and sigmoid walk test today. Per cardiology holding amiodarone. Last echocardiogram on March 2025. was 60% and severe LVH. RV enlarged. Mild mitral stenosis. If patient does well with orthostatics and 6 minute walk test, possible discharge today. Assessment hypotension, likely orthostatic, due to IVVD from iatrogenic/polypharmacy, resolved RONALDO hemodynamically mediated (VMN) on CKD NSTEMI probable type 2 Chronic diastolic congestive heart failure (HFpEF, LVEF 60%) History of DVT Ruled 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 Paroxysmal atrial fibrillation (chads Vasc 8) - secondary hypercoagulability state Mild mitral stenosis PAD status post percutaneous stent placement Thrombocytopenia Left Diabetic foot with history osteomyelitis s/p debridement and IV antibiotic treatment History of CVA Hypertension Dyslipidemia Diabetes Mellitus Plan: - hydrate well - continue home medications - hold off hydralazine, furosemide, and regular insulin. - continue aspirin, plavix, lipitor and NPH insulin. - follow-up with PCP to review discharge, 1-2 weeks. PCP to discuss resuming the medications held as above. Condition at Discharge: Fair Final Diagnosis/Problems List hypotension, likely orthostatic, due to IVVD from iatrogenic/polypharmacy, resolved RONALDO hemodynamically mediated (VMN) on CKD NSTEMI probable type 2 Chronic diastolic congestive heart failure (HFpEF, LVEF 60%) History of DVT Ruled 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 Paroxysmal atrial fibrillation (chads Vasc 8) - secondary hypercoagulability state Mild mitral stenosis PAD status post percutaneous stent placement Thrombocytopenia Left Diabetic foot with history osteomyelitis s/p debridement and IV antibiotic treatment History of CVA Hypertension Dyslipidemia Diabetes Mellitus Discharge Disposition: Home Discharge Instruct/Medications Scheduled Amiodarone HCl (Amiodarone HCl), 1 TAB PO DAILY, (Reported) Aspirin (Aspirin Low Dose), 1 TAB PO DAILY, (Reported) Atorvastatin Calcium (Atorvastatin Calcium), 1 TAB PO HS, (Reported) Clopidogrel Bisulfate (Clopidogrel), 75 MG PO DAILY, (Reported) Furosemide (Furosemide), 1 TAB PO DAILY, (Reported) Hydralazine Hcl (Hydralazine Hcl), 1 TAB PO BID, (Reported) Insulin NPH (Human) (Isophane) (Humulin N), 25 UNIT SC BID, (Reported) Insulin Regular (Human) (Humulin R), 5 UNIT SC BID, (Reported) Discharge Statement: "Patient was advised to return to the ER or call 911 if any headaches, dizziness, shortness of breath, chest pain, abdominal pain, bleeding, fevers, or worsening of medical condition. Patient was counseled about treatment plan, medications, possible side effects, patientverbalized understanding. All questions were answered to the best of my ability. This discharge took greater then 30 minutes in planning, reviewing documentation, counseling the patient, and discussing with other team members." ASSESSMENT ASSESSMENT Assessment Date of Service: Jun 10, 2025 Billing Provider: REED SALGADO MD Common Visit Codes: 90917-SKH/OBS DISCH DAY >30min REED SALGADO MD Jun 10, 2025 17:49
[2025-06-10] MEDS ORDERED: ENOXAPARIN SOD 100 MG/1 ML SYRINGE SC SCH (22:00)
--- NOTE | 2025-06-12 07:21 | ECG ---
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
== END 2025-06-10 19:00 | disposition home health service (06) | DRG 280 ==
LOC: EDBD 12:05 → ER 12:05 → OVERFLOW 22:39 → TELE-CENTR 06-08 17:54
PROVIDERS: ADMIT Student in an Organized Health Care Education/Training Program; ATTEND Student in an Organized Health Care Education/Training Program
DX: I95.1 Orthostatic hypotension (principal); N17.0 Acute kidney failure with tubular necrosis; I21.A1 Myocardial infarction type 2; I50.32 Chronic diastolic (congestive) heart failure; I13.0 Hypertensive heart and chronic kidney disease with heart failure and stage 1 through stage 4 chronic kidney disease, or unspecified chronic kidney disease; D68.59 Other primary thrombophilia; I48.0 Paroxysmal atrial fibrillation; N18.9 Chronic kidney disease, unspecified; D69.6 Thrombocytopenia, unspecified; Z20.822 Contact with and (suspected) exposure to COVID-19; E78.5 Hyperlipidemia, unspecified; I05.0 Rheumatic mitral stenosis; E86.9 Volume depletion, unspecified; T50.995A Adverse effect of other drugs, medicaments and biological substances, initial encounter; E11.22 Type 2 diabetes mellitus with diabetic chronic kidney disease; J44.9 Chronic obstructive pulmonary disease, unspecified; Z91.128 Patient's intentional underdosing of medication regimen for other reason; Z79.4 Long term (current) use of insulin; Z79.82 Long term (current) use of aspirin; Z79.899 Other long term (current) drug therapy; Z95.5 Presence of coronary angioplasty implant and graft; Z86.718 Personal history of other venous thrombosis and embolism; Z86.73 Personal history of transient ischemic attack (TIA), and cerebral infarction without residual deficits; Z80.0 Family history of malignant neoplasm of digestive organs; Z83.3 Family history of diabetes mellitus; Z82.3 Family history of stroke; Y92.89 Other specified places as the place of occurrence of the external cause
CPT/HCPCS: 36415; 70450; 71045; 78582; 80048; 80053; 80061; 80307; 81001; 82306; 82607; 82962; 83036; 83735; 84100; 84443; 84484; 85007; 85025; 85027; 85610; 85730; 87081; 87205; 87426; 87804; 93005; 93970; 97116; 97163; 97530; G0378; J1815